=== PATIENT | male | born 1965 | race Caucasian/White ===

== ENCOUNTER 2017-11-04 09:28 | Emergency (ER) | payer BC ==
[2017-11-04 09:34] VITALS: BP 143/71; BMI 40.1
--- NOTE | 2017-11-04 09:53 | DR.URIAD ---
HPI - Time Seen Time seen: 09:54 - PCP Primary Care Physician: YESSY TRAN - Complaint Chief Complaint Doctors Comments: Patient presents with complaint of cold type symptoms for three days. Chief Complaint:: PT C/O CCC, SORETHROAT FOR A FEW DAYS AND THAT HE WANTS TO BE CHECKED OUT AND THAT HE FEELS BAD. - Source History Provided: Patient - Mode of Arrival Mode of Arrival: Ambulatory - Timing Onset of Chief Complaint: 11/01/17 - Quality Shortness of Breath: none PMH - PMH Past Medical History: Yes Past Medical History: Diabetes, Dyslipidemia, Hypertension Past Surgical History: Yes Past Surgical History Comment: LEFT ARM, - Family History History of Family Medical Conditions: Yes Family Medical History: Hypertension Family Medical History Comment: HEART PROBLEMS. >CHOL, - Social History Does patient currently use any type of tobacco product: No Have you used tobacco products in the last 12 months: No Type of Tobacco Use: None Does any household member use tobacco: No Alcohol Use: None Do you use any recreational Drugs:: No Lives With: Family Lives Where: Home - infectious screening In the last 2 months have you had wt loss of >10#?: NO Have you had fever, night sweats or hemotysis?: No Have you traveled outside the country in the last 6 months?: No Isolation: Standard ROS - Review of Systems Eyes: No Symptoms Reported ENTM: No Symptoms Reported Respiratoy: No Symptoms Reported Cardiovascular: No Symptoms Reported Gastrointestinal/Abdominal: No Symptoms Reported Genitourinary: No Symptoms Reported Neurological: No Symptoms Reported Musculoskeletal: No Symptoms Reported Integumentary: No Symptoms Reported Hematologic/Lymphatic: No Symptoms Reported Endocrine: No Symptoms Reported Psychiatric: No Symptoms Reported All Other Systems: Reviewed and Negative PE - Vital Signs Vitals: Temperature 98.2 F Pulse Rate 84 Respiratory Rate 18 Blood Pressure 143/71 O2 Sat by Pulse Oximetry 97 - General Limitations: No Limitations General Appearance: Alert - Head Head Exam: Normal Inspection, Atraumatic - Eyes Eye exam: Normal Appearance, PERRL, EOMI - ENT ENT Exam: Normal Exam External Ear Exam: Normal External Inspection TM/Canal Exam: Bilateral Normal Nose Exam: Normal Nose Exam Nasal Speculum Exam: Bilateral Normal Mouth Exam: Normal Inspection, Drooling Throat Exam: Normal Inspection - Neck Neck Exam: Normal Inspection - Chest Chest Inspection: Normal Inspection - Respiratory Respiratory Exam: Normal Lung Sounds Bilat Respiratory Exam: Bilateral Clear to Auscultation - Cardiovascular Cardiovascular Exam: Regular Rate, Normal Rhythm - Abdominal Exam Abdominal Exam: Normal Inspection, Normal Bowel Sounds Abdominal Tenderness: negative: RUQ, RLQ, LUQ, LLQ, Epigastrium, Suprapubic, Diffuse, Mild, Moderate, Severe, Other - Extremeties Extremities Exam: Normal Inspection, Full ROM - Back Back Exam: Normal Inspection, Full ROM - Neurologic Neurological Exam: Alert, Oriented X3, CN II-XII Intact Course - Reevaluation 1st: Unchanged ROR - Labs Reviewed Laboratory: Influenza Type A (PCR) Negative (NEGATIVE) 11/04/17 09:44 Influenza Type B (PCR) Negative (NEGATIVE) 11/04/17 09:44 S. pyogenes (TEM-PCR) Not detected (NOT DETECT) 11/04/17 10:03 - XRAY XRAY Interpreted by: Radiologist (Chest: Nicreased interstitial markings present involving both lungs which may be chronic. No acute abnormality is seen.) - Diagnosis Discharge Problem: Upper respiratory infection Qualifiers: URI type: unspecified viral URI Qualified Code(s): J06.9 - Acute upper respiratory infection, unspecified - Discharge Plan Condition: Stable - Follow ups/Referrals Follow ups/Referrals: NFD,None [Primary Care Provider] - 3 days - Instructions
--- NOTE | 2017-11-04 10:25 | RAD ---
HISTORY: Sore throat. History of diabetes, asthma and hypertension Study: Two-view chest Comparison: No priors Findings: Trachea is midline. Heart size is upper normal with atherosclerotic calcification and uncoiling of th e aortic arch. Pulmonary vascular congestion is present. Increased interstitial markings are present bilaterally which may be chronic. No consolidation, CHF, pleural fluid or pneumothorax is seen. There is a thoracolumbar scoliosis with multilevel thoracic spondylosis. No acute osseous changes are seen . IMPRESSION: Hypertensive configuration. Pulmonary vascular congestion. Increased interstitial markings present involving both lungs which may be chronic. No acute abnormali ty is seen. Reported By:
== END 2017-11-04 11:10 | disposition home or self-care (01) ==
LOC: ER 09:39
DX: J06.9 Acute upper respiratory infection, unspecified (principal)
CPT/HCPCS: 71046; 87502; 87651; 99282

== ENCOUNTER 2020-11-21 09:11 | Observation (INO) ==
--- NOTE | 2020-11-21 09:48 | DR.FEVERAD ---
HPI Time seen Time Seen by Provider: 11/21/20 09:48 PCP Primary Care Physician: LOLLY DAMON Comment HPI Comment: PATIENT IS 55YR OLD MALE IN ER WITH FEVER, COUGH, CONGESTION AND SOB TIMES 3 DAYS. WORSE TODAY. PATIENT IS WEAK AND HAVING MUSCLE ACHES AND H EADACHE. HAVING GENERALIZED ACHES THAT IS 5/10. Complaints/Symptoms Chief Complaint Doctor Comments: FEVER, COUGH, CONGESTION, SOB TIMES 3 DAY, Chief Complaint:: PT C/O FEVER OF 103, DIDN'T TAKE ANYTHING JUST DRANK SOME COLD BEVERAGES, CHILLS AND HOT SPELLS, LITTLE COUGHING AND SOME CONGESTION, SOB. COVID-19 Coronavirus risk:travel/contact w/high risk person: No Has patient experienced Coronavirus symptoms: No Coronavirus symptoms experienced: Coughing and Shortness of Breath Nurses notes reviewed Nurses Notes Review: Yes Source History Provided: Patient Mode of Arrival Mode of Arrival: Ambulatory Timing Onset of Chief Complaint: 11/18/20 Came on: Suddenly Duration Duration: Constant Duration: Days Severity Fever Severity/Quality: greater than 102 F Context Recent: None Symptoms: Fever, Chills, Cough and SOB History of: Diabetes; denies Recent travel Modifying factors Modifying factors: Nothing Associated signs and symptoms Associated signs and symptoms: Weakness, Myalgia and Headache PMH PMH Past Medical History: Yes Past Medical History: Diabetes, Dyslipidemia and Hypertension Past Surgical History: Yes Surgical History: Other Past Surgical History Comment: SWEAT GLAND REMOVAL Family History History of Family Medical Conditions: Yes Family Medical History: Diabetes Mellitus, Heart Failure and Hypertension Social History Alcohol Use: None Do you use any recreational Drugs:: No Lives With: Spouse Lives Where: Home Infectious screening In the last 2 months have you had wt loss of >10#?: NO Have you had fever, night sweats or hemotysis?: No Have you traveled outside the country in the last 6 months?: No Isolation: Droplet ROS Review of Systems Constitutional: See HPI, Chills, Fever, Weakness and Fatigue Eyes: No Symptoms Reported and See HPI ENTM: See HPI, Nose Discharge and Nose Congestion Respiratoy: See HPI, Moist Cough and Short of Breath; negative Wheezing Cardiovascular: See HPI and Chest Pain (PLEURITIC.); negative Edema and Palpitations Gastrointestinal/Abdominal: No Symptoms Reported and See HPI; negative Abdominal Pain, Diarrhea and Vomiting Genitourinary: No Symptoms Reported and See HPI; negative Dysuria, Frequency and Hematuria Neurological: See HPI, Headache and Weakness; negative Dizziness Musculoskeletal: See HPI and Muscle Pain; negative Back Pain Integumentary: No Symptoms Reported and See HPI; negative Change in Color, Rash and Juandice Hematologic/Lymphatic: No Symptoms Reported and See HPI; negative Easy Bruising and Swollen Glands Endocrine: No Symptoms Reported and See HPI; negative Increased Thirst and Increased Urine Psychiatric: No Symptoms Reported and See HPI All Other Systems: Reviewed and Negative PE Vital Signs Vitals: Temperature 100.1 F Pulse Rate 102 Respiratory Rate 20 Blood Pressure 123/84 O2 Sat by Pulse Oximetry 96 General Limitations: No Limitations General Appearance: Alert and In No Apparent Distress Head Head Exam: Normal Inspection and Atraumatic Eyes Eye exam: Normal Appearance and PERRL; negative Scleral Icterus and Conjunctival Injection ENT ENT Exam: Normal Exam, Normal Oropharynx, Normal External Ear Exam and TM's Normal Bilaterally External Ear Exam: Normal External Inspection; negative Mastoid Tenderness TM/Canal Exam: Bilateral: Normal Nose Exam: Normal Nose Exam; negative Sinus Tenderness Mouth Exam: Normal Inspection; negative Lip Swelling and Tongue Swelling Teeth Exam: Dental Caries; negative Dental Tenderness # and Gingival Swelling Throat Exam: Normal Inspection; negative Tonsillar Erythema, Tonsillomegaly and Tonsillar Exudate Neck Neck Exam: Normal Inspection and Trachea Midline; negative Tenderness and Lymphadenopathy Respiratory Respiratory Exam: Normal Lung Sounds Bilat; negative Accessory Muscle Use, Chest Wall Tenderness and Respiratory Distress Respiratory Exam: Bilateral: Rhonchi and Lower: Rhonchi Cardiovascular Cardiovascular Exam: Regular Rate, Normal Rhythm and Normal Heart Sounds; negative Systolic Murmur and Diastolic Murmur Abdominal Exam Abdominal Exam: Normal Inspection, Normal Bowel Sounds and Soft; negative Tenderness Extremities Extremities Exam: Normal Inspection and Normal Capillary Refill; negative Tenderness, Edema and Calf Tenderness Back Back Exam: Normal Inspection; negative (R) CVA Tenderness and (L) CVA Tenderness Neurologic Neurological Exam: Alert, Oriented X3 and CN II-XII Intact; negative Motor Sens ory Deficit Psychiatric Psychiatric Exam: Normal Affect and Normal Mood Skin Skin Exam: Warm, Dry, Intact and Normal Color MDM Differential Diagnosis Differential Diagnosis: Dehydration, Electrolyte disorder, Influenza, Pulmonary embolus, Pneumonia, UTI and Viral syndrome COURSE Treatment Treatment: SEE ORDERS. NS 1L AT 100CC/HR, MORHIN 4MG IV, ZOFRAN 4MGIV AND LOVENOX 108MG S/C IN ER. Consultation Consultation Comments: DISCUSSED PATIENT WITH DR. RODRIGUEZ, SHE WILL ADMIT PATIENT. Education/Counseling Education/Counseling: Patient Educated On: Diagnosis and Needs for Follow Up ROR Labs Reviewed Laboratory Results Reviewed?: Yes Result Diagrams: 11/26/20 05:05 11/26/20 05:05 Laboratory: 11/21/20 10:18 Blood Blood Culture - Final 11/21/20 10:06 Blood Blood Culture - Final WBC 13.7 X10^3/uL (3.6-10.0) H 11/21/20 10:06 RBC 4.87 X10^6/uL (4.7-6.0) 11/21/20 10:06 Hgb 13.0 g/dL (13.5-18.0) L 11/21/20 10:06 Hct 39.7 % (42.0-54.0) L 11/21/20 10:06 MCV 81.5 fL (80.0-100.0) 11/21/20 10:06 MCH 26.7 pg (27.0-34.0) L 11/21/20 10:06 MCHC 32.7 g/dL (33.0-35.0) L 11/21/20 10:06 RDW 14.9 % (11.6-16.5) 11/21/20 10:06 Plt Count 374 X10^3/uL (150.0-450.0) 11/21/20 10:06 MPV 8.8 fL (7.4-11.0) 11/21/20 10:06 Neut % (Auto) 80.5 % (42.0-75.0) H 11/21/20 10:06 Lymph % (Auto) 7.4 % (21.0-51.0) L 11/21/20 10:06 [place] % (Auto) 10.9 % (0.0-13.0) 11/21/20 10:06 Eos % (Auto) 0.3 % (0.9-2.9) L 11/21/20 10:06 Baso % (Auto) 0.9 % (0.2-1.0) 11/21/20 10:06 Neut # (Auto) 11.0 x10^3/uL (2.2-4.8) H 11/21/20 10:06 Lymph # (Auto) 1.0 X10^3/uL (1.3-2.9) L 11/21/20 10:06 [place] # (Auto) 1.5 x10^3/uL (0.3-0.8) H 11/21/20 10:06 Eos # (Auto) 0.0 x10^3/uL (0.0-0.2) 11/21/20 10:06 Baso # (Auto) 0.1 X10^3/uL (0.0-0.1) 11/21/20 10:06 Absolute Nucleated RBC 0.0 /100WBC 11/21/20 10:06 D-Dimer 1.65 ug/ml (0.0-0.57) H* 11/21/20 10:06 Sample Site Rr 11/21/20 11:20 ABG pH 7.510 (7.35-7.45) H 11/21/20 11:20 ABG pCO2 34.0 mmHg (35.0-45.0) L 11/21/20 11:20 ABG pO2 70.0 mmHg (80.0-100.0) L 11/21/20 11:20 ABG HCO3 27.1 mmol/L (22-26) H 11/21/20 11:20 ABG O2 Saturation 95.0 % (90-100) 11/21/20 11:20 ABG Base Excess 4.2 mmol/L (-2.0-2.0) H 11/21/20 11:20 Omkar Test Pos 11/21/20 11:20 A-a Gradient 37.0 mmHg 11/21/20 11:20 FiO2 21.0 11/21/20 11:20 Blood Gas Comments Cindy well, kh 11/21/20 11:20 Sodium 131 mmol/L (136-145) L 11/21/20 10:06 Corrected Sodium 135 mmol/L (136-145) L 11/21/20 10:06 Potassium 3.7 mmol/L (3.5-5.1) 11/21/20 10:06 Chloride 95 mmol/L (98-107) L 11/21/20 10:06 Carbon Dioxide 27.5 mmol/L (21-32) 11/21/20 10:06 BUN 5 mg/dL (7-18) L 11/21/20 10:06 Creatinine 0.94 mg/dL (0.70-1.30) 11/21/20 10:06 Est GFR (MDRD) Af Amer > 60 (>60) 11/21/20 10:06 Est GFR (MDRD) Non-Af > 60 (>60) 11/21/20 10:06 Glucose 265 mg/dL (65-99) H 11/21/20 10:06 Lactic Acid 1.5 mmol/L (0.4-2.0) 11/21/20 10:06 Calcium 9.4 mg/dL (8.5-10.1) 11/21/20 10:06 Corrected Calcium 10.4 mg/dL (8.5-10.1) H 11/21/20 10:06 Ferritin 389 ng/mL (26-388) H 11/21/20 10:06 Total Bilirubin 0.70 mg/dL (0.2-1.0) 11/21/20 10:06 AST 19 Units/L (15-37) 11/21/20 10:06 ALT 28 Units/L (12-78) 11/21/20 10:06 Alkaline Phosphatase 133 Units/L (46-116) H 11/21/20 10:06 Troponin I < 0.02 ng/mL (0-1.5) 11/21/20 10:06 C-Reactive Protein 221.60 mg/L (0-3.0) H 11/21/20 10:06 B-Natriuretic Peptide 7.5 pg/mL (0-79) 11/21/20 10:06 Total Protein 9.7 g/dL (6.4-8.2) H 11/21/20 10:06 Albumin 2.7 g/dL (3.4-5.0) L 11/21/20 10:06 Globulin 7.0 g/dL (2.5-4.5) H 11/21/20 10:06 Albumin/Globulin Ratio 0.4 Ratio (1.1-2.1) L 11/21/20 10:06 Specimen Type Clean catch urine 11/21/20 12:30 Urine Color Yellow (YELLOW) 11/21/20 12:30 Urine Appearance Clear (CLEAR) 11/21/20 12:30 Urine pH 7.0 (5.0 - 8.0) 11/21/20 12:30 Ur Specific [place] 1.010 (1.000-1.030) 11/21/20 12:30 Urine Protein 2+ (NEGATIVE) 11/21/20 12:30 Urine Glucose (UA) 4+ (NEGATIVE) 11/21/20 12:30 Urine Ketones Negative (NEGATIVE) 11/21/20 12:30 Urine Occult Blood 2+ (NEGATIVE) 11/21/20 12:30 Urine Nitrite Negative (NEGATIVE) 11/21/20 12:30 Urine Bilirubin Negative (NEGATIVE) 11/21/20 12:30 Urine Urobilinogen 3+ (NORMAL) 11/21/20 12:30 Ur Leukocyte Esterase 1+ (NEGATIVE) 11/21/20 12:30 Urine RBC 3-5 /HPF (0-3) A 11/21/20 12:30 Urine WBC 0-2 /HPF (0-5) 11/21/20 12:30 Ur Squamous Epith Cells Few /HPF (NEGATIVE) 11/21/20 12:30 Urine Bacteria Negative /HPF (NEGATIVE) 11/21/20 12:30 Urine Mucus Few /HPF (NEGATIVE) 11/21/20 12:30 Ur Culture Indicated? No/not indicated 11/21/20 12:30 Acetone, Semi-Quant Negative (NEGATIVE) 11/21/20 10:06 SARS-CoV-2 (PCR) Positive (NEGATIVE) A 11/21/20 10:15 Influenza Type A (PCR) Negative (NEGATIVE) 11/21/20 10:15 Influenza Type B (PCR) Negative (NEGATIVE) 11/21/20 10:15 RSV (PCR) Negative (NEGATIVE) 11/21/20 10:15 XRAY XRAY Interpreted by: Radiologist (REPORT NOTED AND DISCUSSED WITH PATIENT.) and Self Opioid Opioid Risk Tool Age (Sathish box if 16-45): No Total: 0 Total Score Risk Category: Low Risk Copyright: Salazar LR predicting aberrant behaviors Diagnosis Discharge Problem: Hyperglycemia, COVID-19 virus infection Pulmonary embolism Qualifiers: Pulmonary embolism type: unspecified Chronicity: acute Acute cor pulmonale presence: without acute cor pulmonale Qualified Code(s): I26.99 - Other pulmonary embolism without acute cor pulmonale Instructions Instructions: Incentive Spirometer Viral Respiratory Infection, Yrlx-Ts-[id number] Hand Washing, Zcpv-hw-[id number] Pulmonary Embolism Upper Respiratory Infection, Adult Type 2 Diabetes Mellitus, Self Care, Adult, Iwrv-ua-[id number] Droplet Precautions, Nnwk-bu-Wobs Contact Precautions, Psez-bf-Jemc Hypertension, Uzkz-au-Gilu Forms: Excuse From Work Precautions for COVID19 Patient Portal Social Distancing
[2020-11-21] MEDS ORDERED: NS 1000 ML 1,000 ML ONE (10:11)
[2020-11-21] MEDS: NS 1000 ML 1,000 ML IV SCH ×2 (10:16→18:03)
[2020-11-21 10:22] LABS: BASOPHILS # (AUTO) 0.1 X10^3/uL (0.0-0.1); BASOPHILS % (AUTO) 0.9 % (0.2-1.0); EOSINOPHILS % (AUTO) 0.3 % (0.9-2.9); HEMATOCRIT 39.7 % (42.0-54.0); LYMPHOCYTES % (AUTO) 7.4 % (21.0-51.0); MEAN CORPUSCULAR HEMOGLOBIN 26.7 pg (27.0-34.0); MEAN CORPUSCULAR HGB CONC 32.7 g/dL (33.0-35.0); MEAN CORPUSCULAR VOLUME 81.5 fL (80.0-100.0); MEAN PLATELET VOLUME 8.8 fL (7.4-11.0); MONOCYTES # (AUTO) 1.5 x10^3/uL (0.3-0.8); MONOCYTES % (AUTO) 10.9 % (0.0-13.0); NEUTROPHILS % (AUTO) 80.5 % (42.0-75.0); PLATELET COUNT 374 X10^3/uL (150.0-450.0); RED BLOOD COUNT 4.87 X10^6/uL (4.7-6.0); RED CELL DISTRIBUTION WIDTH 14.9 % (11.6-16.5); WHITE BLOOD COUNT 13.7 X10^3/uL (3.6-10.0)
[2020-11-21 10:33] LABS: ALANINE AMINOTRANSFERASE 28 Units/L (12-78); ALBUMIN 2.7 g/dL (3.4-5.0); ALKALINE PHOSPHATASE 133 Units/L (46-116); ASPARTATE AMINO TRANSFERASE 19 Units/L (15-37); BLOOD UREA NITROGEN 5 mg/dL (7-18); CALCIUM 9.4 mg/dL (8.5-10.1); CARBON DIOXIDE 27.5 mmol/L (21-32); CHLORIDE 95 mmol/L (98-107); COR CA(FOR HYPOALB) 10.4 mg/dL (8.5-10.1); COR NA(FOR HYPERGLY) 135 mmol/L (136-145); CREATININE 0.94 mg/dL (0.70-1.30); SODIUM 131 mmol/L (136-145); TOTAL PROTEIN 9.7 g/dL (6.4-8.2); eGFR NON BLACK RACES > 60 (>60)
[2020-11-21 10:49] LABS: LACTIC ACID 1.5 mmol/L (0.4-2.0)
--- NOTE | 2020-11-21 11:09 | RAD ---
HISTORYCOUGH, FEVERExam: Single portable view of the chest.Comparison: None available.Findings:The trachea is midline. The cardiac silhouette is unremarkable. There are increased [perihilar] interstitial opacities seen, suggesting [central bronchitis].The lungs [are otherwise clear without focal infiltrate or effusion]. The bony thorax [is unremarkable].IMPRESSION:Chest findings suggesting central bronchitis.No lobar pneumonia or pleural effusion seen.Electronically signed by: TONY NAVARRO III (Nov 21, 2020 11:06:42)
[2020-11-21 11:31] LABS: ABG ALLEN TEST POS; ABG BASE EXCESS 4.2 mmol/L (-2.0-2.0); ABG HCO3 27.1 mmol/L (22-26)
[2020-11-21 12:51] LABS: BILIRUBIN,URINE NEGATIVE (NEGATIVE); BLOOD/HEMOGLOBIN,URINE 2+ (NEGATIVE); GLUCOSE, URINE 4+ (NEGATIVE); KETONES,URINE NEGATIVE (NEGATIVE); LEUKOCYTE ESTERASE ,URINE 1+ (NEGATIVE); NITRITES,URINE NEGATIVE (NEGATIVE); PROTEIN,URINE 2+ (NEGATIVE); UROBILINOGEN,URINE 3+ (NORMAL)
[2020-11-21] MEDS ORDERED: NS 100 ML IV 100 ML IV ONE (12:58)
[2020-11-21 13:02] LABS: APPEARANCE,URINE CLEAR (CLEAR); BACTERIA,URINE NEGATIVE /HPF (NEGATIVE); COLOR,URINE YELLOW (YELLOW); MUCUS,URINE FEW /HPF (NEGATIVE); SQUAMOUS EPITHELIAL CELL,UR FEW /HPF (NEGATIVE)
--- NOTE | 2020-11-21 13:09 | CT ---
HISTORYSOB/ COVID +STUDYCTA CHESTCOMPARISONChest radiograph from same day.TECHNIQUECTA chest protocol with axial images from the thoracic inlet to upper abdomen with IV contrast. Sagittal and coronal reformats and MIP images were created. Automated exposure control was utilized.FINDINGSThe visualized thyroid gland appears benign. Mildly atherosclerotic normal caliber thoracic aorta.Bolus timing is suboptimal. There are small filling defects along the wall at the junction of the left main pulmonary artery and left upper lobe branch image 84 series 7. Thrombus extends into the left upper lobe branches such as the anterior segment on image 71 series 4. Normal caliber pulmonary artery.Severe coronary artery calcifications. The heart is mildly enlarged. No pericardial effusion. No pathologic adenopathy in the thorax. Diffuse hepatic steatosis. No acute osseous abnormality. Trachea and mainstem bronchi appear patent. 2 mm posterior segment left upper lobe pulmonary nodule image 51 series 4. No consolidation or segmental lung collapse. No pleural effusion or pneumothorax.IMPRESSIONThere is likely small volume pulmonary embolus extending from the junction of the left main pulmonary artery into the left upper lobe segments, particularly the left upper lobe anterior segment. Suboptimal bolus timing.Electronically signed by: Lavon Bentley (Nov 21, 2020 13:07:30)
[2020-11-21] MEDS ORDERED: MORPHINE SULFATE INJ 4 MG IVP ONE (14:01)
[2020-11-21] MEDS ORDERED: ZOFRAN INJ 4 MG VIAL IVP ONE (14:01)
[2020-11-21] MEDS ORDERED: MORPHINE SULFATE INJ 4 MG ONE (14:12)
[2020-11-21] MEDS ORDERED: LOVENOX INJ 120 MG SYR SC ONE ×2 (14:14→14:17)
[2020-11-21] MEDS ORDERED: ZOSYN VIAL 3.375 GRAMS 3.375 G in NS 100 ML IV + SPIKE MINIBAG* 100 ML IV SCH (15:03)
[2020-11-21] MEDS ORDERED: NORVASC TAB 2.5 MG PO SCH (16:00)
[2020-11-21] MEDS: DUONEB 0.5 MG/3 MG (3 mL) NEB SCH ×2 (16:20→20:20)
[2020-11-21 16:34] VITALS: BMI 36.1
[2020-11-21] MEDS: VIBRAMYCIN PO SCH ×2 (16:57→23:42)
[2020-11-21] MEDS: VITAMIN C PO SCH (16:57)
[2020-11-21] MEDS: TYLENOL 325 MG TAB PO PRN (16:57)
[2020-11-21] MEDS: ZOSYN VIAL 3.375 GRAMS 3.375 G in NS 100 ML IV + SPIKE MINIBAG* 100 ML IV SCH ×2 (16:57→23:30)
[2020-11-21] MEDS ORDERED: DUONEB 0.5 MG/3 MG (3 mL) NEB SCH (17:00)
[2020-11-21] MEDS ORDERED: STERILE WATER IRRIGATION IR ONE (17:22)
[2020-11-21] MEDS: HumuLIN R SC PRN ×2 (17:30→20:54)
[2020-11-21] MEDS: WOUND CARE XX SCH (18:01)
[2020-11-21] MEDS: PULMICORT NEB TX 0.5 MG NEB SCH (20:20)
[2020-11-21] MEDS ORDERED: LOVENOX INJ 100 MG SYR SC SCH (21:00)
[2020-11-21] MEDS ORDERED: PULMICORT NEB TX 0.5 MG NEB SCH (21:00)
[2020-11-21] MEDS ORDERED: VASOTEC TAB 5 MG PO SCH (21:00)
[2020-11-22] MEDS: NS 1000 ML 1,000 ML IV SCH (02:51)
[2020-11-22] MEDS: WOUND CARE XX SCH ×2 (05:00→17:27)
[2020-11-22] MEDS: ZOSYN VIAL 3.375 GRAMS 3.375 G in NS 100 ML IV + SPIKE MINIBAG* 100 ML IV SCH ×3 (05:30→21:28)
[2020-11-22 06:04] LABS: ALANINE AMINOTRANSFERASE 21 Units/L (12-78); ALBUMIN 2.1 g/dL (3.4-5.0); ALKALINE PHOSPHATASE 95 Units/L (46-116); ASPARTATE AMINO TRANSFERASE 13 Units/L (15-37); BLOOD UREA NITROGEN 6 mg/dL (7-18); CALCIUM 8.9 mg/dL (8.5-10.1); CARBON DIOXIDE 25.9 mmol/L (21-32); CHLORIDE 102 mmol/L (98-107); COR CA(FOR HYPOALB) 10.4 mg/dL (8.5-10.1); COR NA(FOR HYPERGLY) 140 mmol/L (136-145); CREATININE 0.67 mg/dL (0.70-1.30); SODIUM 137 mmol/L (136-145); TOTAL PROTEIN 8.1 g/dL (6.4-8.2); eGFR NON BLACK RACES > 60 (>60)
[2020-11-22 06:06] LABS: BASOPHILS # (AUTO) 0.1 X10^3/uL (0.0-0.1); BASOPHILS % (AUTO) 0.6 % (0.2-1.0); EOSINOPHILS # (AUTO) 0.1 x10^3/uL (0.0-0.2); EOSINOPHILS % (AUTO) 1.1 % (0.9-2.9); HEMATOCRIT 34.5 % (42.0-54.0); HEMOGLOBIN 11.4 g/dL (13.5-18.0); LYMPHOCYTES # (AUTO) 1.5 X10^3/uL (1.3-2.9); LYMPHOCYTES % (AUTO) 15.1 % (21.0-51.0); MEAN CORPUSCULAR HEMOGLOBIN 27.1 pg (27.0-34.0); MEAN CORPUSCULAR HGB CONC 33.2 g/dL (33.0-35.0); MEAN CORPUSCULAR VOLUME 81.5 fL (80.0-100.0); MEAN PLATELET VOLUME 9.1 fL (7.4-11.0); MONOCYTES # (AUTO) 1.1 x10^3/uL (0.3-0.8); MONOCYTES % (AUTO) 11.2 % (0.0-13.0); NEUTROPHILS # (AUTO) 7.1 x10^3/uL (2.2-4.8); PLATELET COUNT 257 X10^3/uL (150.0-450.0); RED BLOOD COUNT 4.23 X10^6/uL (4.7-6.0); RED CELL DISTRIBUTION WIDTH 14.7 % (11.6-16.5); WHITE BLOOD COUNT 9.9 X10^3/uL (3.6-10.0)
[2020-11-22] MEDS: HumuLIN R SC PRN ×4 (06:27→20:48)
[2020-11-22] MEDS ORDERED: PATIENT'S HOME MEDICATION (Insulin Degludec [Tresiba Flextouch U-100] 100 unit/mL (3 mL) I SUBCUT SCH (09:00)
[2020-11-22] MEDS: DUONEB 0.5 MG/3 MG (3 mL) NEB SCH ×4 (09:25→20:00)
[2020-11-22] MEDS: PULMICORT NEB TX 0.5 MG NEB SCH ×2 (09:25→20:00)
[2020-11-22] MEDS: K-DUR TAB 20 MEQ PO SCH ×2 (09:34→20:47)
[2020-11-22] MEDS: LOVENOX INJ 100 MG SYR SC SCH ×3 (09:35→20:45)
[2020-11-22] MEDS: VITAMIN D3 125 mcg (5,000 UNITS) PO SCH (09:37)
[2020-11-22] MEDS: VITAMIN C PO SCH (09:38)
[2020-11-22] MEDS: NORVASC TAB 10 MG PO SCH (09:38)
[2020-11-22] MEDS: VASOTEC TAB 20 MG PO SCH ×2 (09:38→20:46)
[2020-11-22] MEDS: CRESTOR TAB 10 MG PO SCH (09:39)
[2020-11-22] MEDS: VIBRAMYCIN PO SCH ×2 (09:39→21:27)
--- NOTE | 2020-11-22 10:19 | DR.H&P ---
H&P History & Physical for Day of: H&P Date: 11/22/20 Chief Complaint Chief Complaint: SOB, chills and weakness Allergies Allergies Allergy/AdvReac Type Severity Reaction Status Date / Time naproxen [From Aleve] Allergy Verified 11/21/20 09:25 sulfamethoxazole Allergy Verified 11/21/20 09:25 [From Bactrim] trimethoprim [From Bactrim] Allergy Verified 11/21/20 09:25 History of Present Illness History of Present Illness: Mr. Altman is a 55y/o male with a PMH of Type 2 DM, HTN, HLD and obesity who presented with worsening dyspnea, chills and genera lized weakness. Patient states he has been feeling this way for a while but did not seek medical attention. He works in the [employer] and has been exposed to COVID. He reports having fever/chills and fatigue. He started having shortness of breath for the past couple days. Denies GI Sx. Denies sick contact at home. He also has skin pustules/small abscesses in his underarm area along with abdomen and groin. He states this has been going on for 2 years. He has seen General Surgery and had them excised before but he continue to have more spots with pus/blood drainage. Labs: WBC 9.9 Hgb 11.4 Plt 257 K: 3.2 BUN/Cr: 6/0.67 Glucose 193 CRP 188 Trop (- ) D-dimer elevated COVID-19 +, Flu and RSV (-) CXR: central bronchitis CTA: showing PE Patient was started on FD lovenox. Cultures were collected. He was not on oxygen on admission but overnight he was placed on 2L. During my exam, he is on RA with sats > 95% Plan: Continue FD lovenox, add zosyn and doxycycline. Continue nebs. Resume home medications. Add SSI. Replace K. Wound Cx pending. Continue wound care and dressing changes. Consult Dr. Elizondo for wound care. Monitor am labs and imaging. Past Medical History Past Medical History: Diabetes, Dyslipidemia and Hypertension Past Surgical History Surgical History: Tonsillectomy Family History Family Medical History: Diabetes Mellitus, Heart Failure and Hypertension Social History Does patient currently use any type of tobacco product: No Have you used tobacco products in the last 12 months: No Does any household member use tobacco: No Alcohol Use: None Drug Use: None Prescription drug monitoring program results: PDMP reviewed and no concerns identified Medications Home Medications: naproxen [From Aleve] Allergy (Verified 11/21/20 09:25) sulfamethoxazole [From Bactrim] Allergy (Verified 11/21/20 09:25) trimethoprim [From Bactrim] Allergy (Verified 11/21/20 09:25) CONTINUE taking the following medications amlodipine [Norvasc] 10 mg PO DAILY 11/21/20 [History] enalapril maleate [Vasotec] 20 mg PO BID 11/21/20 [History] insulin degludec [Tresiba FlexTouch U-100] 20 unit SUBCUT DAILY 11/21/20 [History] rosuvastatin 20 mg PO DAILY 11/21/20 [History] Labs Result Diagrams: 11/22/20 05:05 11/22/20 05:05 Labs: 11/21/20 17:47 Arm - Left Gram Stain - Final 11/21/20 17:47 Arm - Left Wound Culture - Preliminary 11/21/20 17:47 Abdomen Gram Stain - Final 11/21/20 17:47 Abdomen Wound Culture - Preliminary 11/21/20 17:47 Groin Gram Stain - Final 11/21/20 17:47 Groin Wound Culture - Preliminary 11/21/20 17:47 Arm - Right Gram Stain - Final Laboratory WBC 9.9 X10^3/uL (3.6-10.0) 11/22/20 05:05 RBC 4.23 X10^6/uL (4.7-6.0) L 11/22/20 05:05 Hgb 11.4 g/dL (13.5-18.0) L 11/22/20 05:05 Hct 34.5 % (42.0-54.0) L 11/22/20 05:05 MCV 81.5 fL (80.0-100.0) 11/22/20 05:05 MCH 27.1 pg (27.0-34.0) 11/22/20 05:05 MCHC 33.2 g/dL (33.0-35.0) 11/22/20 05:05 RDW 14.7 % (11.6-16.5) 11/22/20 05:05 Plt Count 257 X10^3/uL (150.0-450.0) 11/22/20 05:05 MPV 9.1 fL (7.4-11.0) 11/22/20 05:05 Neut % (Auto) 72.0 % (42.0-75.0) 11/22/20 05:05 Lymph % (Auto) 15.1 % (21.0-51.0) L 11/22/20 05:05 [place] % (Auto) 11.2 % (0.0-13.0) 11/22/20 05:05 Eos % (Auto) 1.1 % (0.9-2.9) 11/22/20 05:05 Baso % (Auto) 0.6 % (0.2-1.0) 11/22/20 05:05 Neut # (Auto) 7.1 x10^3/uL (2.2-4.8) H 11/22/20 05:05 Lymph # (Auto) 1.5 X10^3/uL (1.3-2.9) 11/22/20 05:05 [place] # (Auto) 1.1 x10^3/uL (0.3-0.8) H 11/22/20 05:05 Eos # (Auto) 0.1 x10^3/uL (0.0-0.2) 11/22/20 05:05 Baso # (Auto) 0.1 X10^3/uL (0.0-0.1) 11/22/20 05:05 Absolute Nucleated RBC 0.1 /100WBC 11/22/20 05:05 D-Dimer 1.65 ug/ml (0.0-0.57) H* 11/21/20 10:06 Sample Site Rr 11/21/20 11:20 ABG pH 7.510 (7.35-7.45) H 11/21/20 11:20 ABG pCO2 34.0 mmHg (35.0-45.0) L 11/21/20 11:20 ABG pO2 70.0 mmHg (80.0-100.0) L 11/21/20 11:20 ABG HCO3 27.1 mmol/L (22-26) H 11/21/20 11:20 ABG O2 Saturation 95.0 % (90-100) 11/21/20 11:20 ABG Base Excess 4.2 mmol/L (-2.0-2.0) H 11/21/20 11:20 Omkar Test Pos 11/21/20 11:20 A-a Gradient 37.0 mmHg 11/21/20 11:20 FiO2 21.0 11/21/20 11:20 Blood Gas Comments Cindy well, kh 11/21/20 11:20 Sodium 137 mmol/L (136-145) 11/22/20 05:05 Corrected Sodium 140 mmol/L (136-145) 11/22/20 05:05 Potassium 3.2 mmol/L (3.5-5.1) L 11/22/20 05:05 Chloride 102 mmol/L (98-107) 11/22/20 05:05 Carbon Dioxide 25.9 mmol/L (21-32) 11/22/20 05:05 BUN 6 mg/dL (7-18) L 11/22/20 05:05 Creatinine 0.67 mg/dL (0.70-1.30) L 11/22/20 05:05 Est GFR (MDRD) Af Amer > 60 (>60) 11/22/20 05:05 Est GFR (MDRD) Non-Af > 60 (>60) 11/22/20 05:05 Glucose 218 mg/dL (65-99) H 11/22/20 05:05 POC Glucose (mg/dL) 193 mg/dL (65-99) H 11/22/20 05:53 Lactic Acid 1.5 mmol/L (0.4-2.0) 11/21/20 10:06 Calcium 8.9 mg/dL (8.5-10.1) 11/22/20 05:05 Corrected Calcium 10.4 mg/dL (8.5-10.1) H 11/22/20 05:05 Ferritin 389 ng/mL (26-388) H 11/21/20 10:06 Total Bilirubin 0.40 mg/dL (0.2-1.0) 11/22/20 05:05 AST 13 Units/L (15-37) L 11/22/20 05:05 ALT 21 Units/L (12-78) 11/22/20 05:05 Alkaline Phosphatase 95 Units/L (46-116) 11/22/20 05:05 Troponin I < 0.02 ng/mL (0-1.5) 11/21/20 10:06 C-Reactive Protein 188.70 mg/L (0-3.0) H 11/22/20 05:05 B-Natriuretic Peptide 7.5 pg/mL (0-79) 11/21/20 10:06 Total Protein 8.1 g/dL (6.4-8.2) 11/22/20 05:05 Albumin 2.1 g/dL (3.4-5.0) L 11/22/20 05:05 Globulin 6.0 g/dL (2.5-4.5) H 11/22/20 05:05 Albumin/Globulin Ratio 0.4 Ratio (1.1-2.1) L 11/22/20 05:05 Specimen Type Clean catch urine 11/21/20 12:30 Urine Color Yellow (YELLOW) 11/21/20 12:30 Urine Appearance Clear (CLEAR) 11/21/20 12:30 Urine pH 7.0 (5.0 - 8.0) 11/21/20 12:30 Ur Specific [place] 1.010 (1.000-1.030) 11/21/20 12:30 Urine Protein 2+ (NEGATIVE) 11/21/20 12:30 Urine Glucose (UA) 4+ (NEGATIVE) 11/21/20 12:30 Urine Ketones Negative (NEGATIVE) 11/21/20 12:30 Urine Occult Blood 2+ (NEGATIVE) 11/21/20 12:30 Urine Nitrite Negative (NEGATIVE) 11/21/20 12:30 Urine Bilirubin Negative (NEGATIVE) 11/21/20 12:30 Urine Urobilinogen 3+ (NORMAL) 11/21/20 12:30 Ur Leukocyte Esterase 1+ (NEGATIVE) 11/21/20 12:30 Urine RBC 3-5 /HPF (0-3) A 11/21/20 12:30 Urine WBC 0-2 /HPF (0-5) 11/21/20 12:30 Ur Squamous Epith Cells Few /HPF (NEGATIVE) 11/21/20 12:30 Urine Bacteria Negative /HPF (NEGATIVE) 11/21/20 12:30 Urine Mucus Few /HPF (NEGATIVE) 11/21/20 12:30 Ur Culture Indicated? No/not indicated 11/21/20 12:30 Acetone, Semi-Quant Negative (NEGATIVE) 11/21/20 10:06 SARS-CoV-2 (PCR) Positive (NEGATIVE) A 11/21/20 10:15 Influenza Type A (PCR) Negative (NEGATIVE) 11/21/20 10:15 Influenza Type B (PCR) Negative (NEGATIVE) 11/21/20 10:15 RSV (PCR) Negative (NEGATIVE) 11/21/20 10:15 Review of Systems Constitutional: Fever, Chills, Weakness and Malaise Eyes: No Symptoms Reported ENT: No Symptoms Reported Respiratory: Shortness of Breath Cardiovascular: No Symptoms Reported Gastrointestinal: No Symptoms Reported Genitourinary: No Symptoms Reported Musculoskeletal: No Symptoms Reported Skin: Lesions, Wound and Other (multiple skin lesions/pustules in the underarm area, abdomen and groin area, purulent/bloody drainage. Multiple sizes. ) Neurological: No Symptoms Reported Physical Exam Vital Signs: Temperature 99.6 F Pulse Rate 80 Respiratory Rate 24 Blood Pressure 157/77 O2 Sat by Pulse Oximetry 95 Oriented: Normal Eyes: Normal Ear: Normal Nose: Normal Throat: Normal Respiratory: Diminished Throughout Cardiovascular: Normal : Other (pustule in the groin area: bleeding ) Auscultation: Bowel Sounds: Normal Palpation: Normal Tenderness: Normal Skin: Pustular, Tender and Wound Musculoskeletal: Normal Psychiatric: Normal Mood Description: Calm Affect: Normal Speech Pattern: Clear and Appropriate Assessment/Plan (1) COVID-19 virus infection: Status: Acute (2) Pulmonary embolism: Qualifiers: Pulmonary embolism type: multiple subsegmental (without acute cor pulmonale) Qualified Code(s): I26.94 - Multiple subsegmental pulmonary emboli without acute cor pulmonale Status: Acute (3) Hidradenitis suppurativa: Status: Acute (4) Hypokalemia: Status: Acute (5) HTN (hypertension): Qualifiers: Hypertension type: essential hypertension Qualified Code(s): I10 - Essential (primary) hypertension Status: Acute (6) Diabetes: Qualifiers: Diabetes mellitus complication status: without complication Diabetes mellitus buttermaker insulin use: with fdc use Diabetes mellitus type: type 2 Qualified Code(s): E11.9 - Type 2 diabetes mellitus without complications; Z79.4 - long term care pharmacist (current) use of insulin Status: Acute (7) Bronchitis: Status: Acute Review H&P Reviewed: Yes Patient was examined?: Yes
[2020-11-22 13:02] LABS: T4 (THYROXINE) 6.6 ug/dL (4.7-13.3); TSH (3RD GENERATION) 0.414 uIU/mL (0.358-3.74)
[2020-11-22] MEDS: PERCOCET TAB 5/325 MG PO PRN ×2 (15:16→20:47)
[2020-11-22] MEDS: COLACE CAP 100 MG PO SCH ×2 (15:26→21:27)
[2020-11-22] MEDS: MILK OF MAGNESIA PO SCH ×2 (15:26→21:27)
[2020-11-22] MEDS: SNACK - Diabetic Appropriate PO SCH (19:51)
[2020-11-23 05:09] LABS: ABG ALLEN TEST POS; ABG BASE EXCESS 4.8 mmol/L (-2.0-2.0); ABG HCO3 29.9 mmol/L (22-26)
[2020-11-23] MEDS: PERCOCET TAB 5/325 MG PO PRN (05:30)
[2020-11-23] MEDS: ZOSYN VIAL 3.375 GRAMS 3.375 G in NS 100 ML IV + SPIKE MINIBAG* 100 ML IV SCH ×3 (05:30→21:50)
[2020-11-23] MEDS: WOUND CARE XX SCH ×2 (05:30→18:04)
--- NOTE | 2020-11-23 06:04 | RAD ---
HISTORYcovid SOB PESTUDYAP [id number] is no change. Upper normal heart size with essentially clear lungs and pleural spaces. There is no evidence for pneumonia, atelectasis, pneumothorax or pleural fluid.IMPRESSIONNo change or acute abnormality demonstrated.Electronically signed by: TANIA YEN (Nov 23, 2020 06:02:33)
[2020-11-23 06:20] LABS: BLOOD UREA NITROGEN 8 mg/dL (7-18); CALCIUM 9.5 mg/dL (8.5-10.1); CARBON DIOXIDE 26.3 mmol/L (21-32); CHLORIDE 105 mmol/L (98-107); COR NA(FOR HYPERGLY) 142 mmol/L (136-145); CREATININE 0.69 mg/dL (0.70-1.30); SODIUM 141 mmol/L (136-145); eGFR NON BLACK RACES > 60 (>60)
[2020-11-23 06:21] LABS: BASOPHILS # (AUTO) 0.1 X10^3/uL (0.0-0.1); BASOPHILS % (AUTO) 0.9 % (0.2-1.0); EOSINOPHILS # (AUTO) 0.2 x10^3/uL (0.0-0.2); EOSINOPHILS % (AUTO) 2.5 % (0.9-2.9); HEMOGLOBIN 11.7 g/dL (13.5-18.0); LYMPHOCYTES # (AUTO) 2.4 X10^3/uL (1.3-2.9); LYMPHOCYTES % (AUTO) 29.6 % (21.0-51.0); MEAN CORPUSCULAR HEMOGLOBIN 27.1 pg (27.0-34.0); MEAN CORPUSCULAR HGB CONC 33.5 g/dL (33.0-35.0); MEAN CORPUSCULAR VOLUME 81.1 fL (80.0-100.0); MEAN PLATELET VOLUME 8.6 fL (7.4-11.0); MONOCYTES # (AUTO) 0.7 x10^3/uL (0.3-0.8); MONOCYTES % (AUTO) 8.5 % (0.0-13.0); NEUTROPHILS # (AUTO) 4.8 x10^3/uL (2.2-4.8); NEUTROPHILS % (AUTO) 58.5 % (42.0-75.0); PLATELET COUNT 276 X10^3/uL (150.0-450.0); RED BLOOD COUNT 4.32 X10^6/uL (4.7-6.0); RED CELL DISTRIBUTION WIDTH 14.8 % (11.6-16.5); WHITE BLOOD COUNT 8.3 X10^3/uL (3.6-10.0)
[2020-11-23] MEDS ORDERED: REMDESIVIR 200 MG in NS 250 ML IV 250 ML IV NR (08:19)
[2020-11-23] MEDS ORDERED: INSULIN DEGLUDEC 15 UNIT SUBCUT SCH (09:00)
[2020-11-23] MEDS: MILK OF MAGNESIA PO SCH ×2 (09:12→20:58)
[2020-11-23] MEDS: COLACE CAP 100 MG PO SCH ×2 (09:13→20:56)
[2020-11-23] MEDS: DUONEB 0.5 MG/3 MG (3 mL) NEB SCH ×4 (09:19→20:46)
[2020-11-23] MEDS: PULMICORT NEB TX 0.5 MG NEB SCH ×2 (09:19→20:47)
[2020-11-23] MEDS ORDERED: IVERMECTIN PO SCH (11:00)
[2020-11-23] MEDS: NORVASC TAB 10 MG PO SCH (11:04)
[2020-11-23] MEDS: K-DUR TAB 20 MEQ PO SCH ×2 (11:04→20:56)
[2020-11-23] MEDS: CRESTOR TAB 10 MG PO SCH (11:04)
[2020-11-23] MEDS: VASOTEC TAB 20 MG PO SCH ×2 (11:05→20:58)
[2020-11-23] MEDS: VIBRAMYCIN PO SCH ×2 (11:06→20:59)
[2020-11-23] MEDS: VITAMIN C PO SCH (11:06)
[2020-11-23] MEDS: VITAMIN D3 125 mcg (5,000 UNITS) PO SCH (11:07)
[2020-11-23] MEDS: LANTUS SC SCH (11:07)
[2020-11-23] MEDS: LOVENOX INJ 100 MG SYR SC SCH ×2 (11:08→20:57)
[2020-11-23] MEDS: SOLU-Medrol 125 MG VIAL IVP SCH ×3 (12:00→20:58)
[2020-11-23] MEDS: HumuLIN R SC PRN ×2 (17:11→20:59)
[2020-11-23] MEDS: SNACK - Diabetic Appropriate PO SCH (19:42)
[2020-11-24] MEDS: SOLU-Medrol 125 MG VIAL IVP SCH ×4 (02:09→20:22)
[2020-11-24 04:41] LABS: BASOPHILS # (AUTO) 0.1 X10^3/uL (0.0-0.1); BASOPHILS % (AUTO) 1.4 % (0.2-1.0); HEMATOCRIT 37.2 % (42.0-54.0); HEMOGLOBIN 12.1 g/dL (13.5-18.0); LYMPHOCYTES # (AUTO) 0.9 X10^3/uL (1.3-2.9); LYMPHOCYTES % (AUTO) 11.2 % (21.0-51.0); MEAN CORPUSCULAR HEMOGLOBIN 26.6 pg (27.0-34.0); MEAN CORPUSCULAR HGB CONC 32.5 g/dL (33.0-35.0); MEAN CORPUSCULAR VOLUME 81.7 fL (80.0-100.0); MEAN PLATELET VOLUME 8.6 fL (7.4-11.0); MONOCYTES # (AUTO) 0.1 x10^3/uL (0.3-0.8); MONOCYTES % (AUTO) 0.9 % (0.0-13.0); NEUTROPHILS # (AUTO) 6.7 x10^3/uL (2.2-4.8); NEUTROPHILS % (AUTO) 86.5 % (42.0-75.0); PLATELET COUNT 353 X10^3/uL (150.0-450.0); RED BLOOD COUNT 4.55 X10^6/uL (4.7-6.0); RED CELL DISTRIBUTION WIDTH 14.9 % (11.6-16.5); WHITE BLOOD COUNT 7.8 X10^3/uL (3.6-10.0)
[2020-11-24 04:50] LABS: BLOOD UREA NITROGEN 7 mg/dL (7-18); CALCIUM 9.9 mg/dL (8.5-10.1); CARBON DIOXIDE 25.1 mmol/L (21-32); CHLORIDE 101 mmol/L (98-107); COR NA(FOR HYPERGLY) 143 mmol/L (136-145); CREATININE 0.68 mg/dL (0.70-1.30); SODIUM 138 mmol/L (136-145); eGFR NON BLACK RACES > 60 (>60)
[2020-11-24 05:48] LABS: ABG ALLEN TEST POS; ABG BASE EXCESS 3.5 mmol/L (-2.0-2.0); ABG HCO3 27.8 mmol/L (22-26)
[2020-11-24] MEDS: HumuLIN R SC PRN ×3 (05:54→20:56)
[2020-11-24] MEDS: ZOSYN VIAL 3.375 GRAMS 3.375 G in NS 100 ML IV + SPIKE MINIBAG* 100 ML IV SCH ×2 (05:54→13:52)
[2020-11-24] MEDS: WOUND CARE XX SCH ×2 (05:54→17:00)
[2020-11-24] MEDS: COLACE CAP 100 MG PO SCH ×2 (08:48→20:22)
[2020-11-24] MEDS: MILK OF MAGNESIA PO SCH ×2 (08:49→20:23)
[2020-11-24] MEDS ORDERED: REMDESIVIR 100 MG in NS 250 ML IV 250 ML IV SCH (09:00)
[2020-11-24] MEDS: CRESTOR TAB 10 MG PO SCH (09:02)
[2020-11-24] MEDS: K-DUR TAB 20 MEQ PO SCH ×2 (09:02→20:24)
[2020-11-24] MEDS: VIBRAMYCIN PO SCH (09:03)
[2020-11-24] MEDS: VASOTEC TAB 20 MG PO SCH ×2 (09:03→20:22)
[2020-11-24] MEDS: NORVASC TAB 10 MG PO SCH (09:03)
[2020-11-24] MEDS: VITAMIN D3 125 mcg (5,000 UNITS) PO SCH (09:04)
[2020-11-24] MEDS: VITAMIN C PO SCH (09:04)
[2020-11-24] MEDS: LOVENOX INJ 100 MG SYR SC SCH ×2 (09:04→20:23)
[2020-11-24] MEDS: LANTUS SC SCH (09:05)
[2020-11-24] MEDS: DUONEB 0.5 MG/3 MG (3 mL) NEB SCH ×4 (09:09→21:23)
[2020-11-24] MEDS: PULMICORT NEB TX 0.5 MG NEB SCH ×2 (09:09→21:23)
[2020-11-24] MEDS ORDERED: DIPRIVAN VIAL ONE (11:15)
[2020-11-24] MEDS ORDERED: XYLOCAINE 1 % (PLAIN) ONE (11:15)
--- NOTE | 2020-11-24 11:59 | DR.PROGNOT ---
Hospital Progress Notes - Progress Note for Day of: Progress Note Date: 11/24/20 - Chief Complaint Chief Complaint: 326still having purulent drainage from the axillary and groin abscesses . pain is less thouigh . Pt is on yumiko doses of steroids . .BS is high 326 - Past Medical Family Social History Past Med/Fam/Surg Hx: No changes since H&P Allergies: Allergies naproxen [From Aleve] Allergy (Verified 11/21/20 09:25) sulfamethoxazole [From Bactrim] Allergy (Verified 11/21/20 09:25) trimethoprim [From Bactrim] Allergy (Verified 11/21/20 09:25) - Review Of Systems ROS: No change since H&P - Vital Signs Vital Signs: Temperature 97 F Pulse Rate 86 Respiratory Rate 16 Blood Pressure 119/56 O2 Sat by Pulse Oximetry 95 - Physical Exam Oriented: Normal Eyes: Normal Ear: Normal Nose: Normal Throat: Normal Cardiovascular: Normal : Other (pustule in the groin area: bleeding) GI:Auscultation: Normal GI:Palpation: Normal GI: Tenderness: Normal Skin: Pustular, Tender, Wound (multiple abscesses in the groins and Axilla) Musculoskeletal: Normal Psychiatric: Normal Mood Description: Calm Affect: Normal Speech Pattern: Clear, Appropriate - Laboratory and Diagnostics Result Diagrams: 11/24/20 04:05 11/24/20 04:05 Labs: 11/21/20 17:47 Arm - Right Gram Stain - Final 11/21/20 17:47 Arm - Right Wound Culture - Preliminary Proteus Mirabilis 11/21/20 17:47 Abdomen Gram Stain - Final 11/21/20 17:47 Abdomen Wound Culture - Preliminary 11/21/20 17:47 Arm - Left Gram Stain - Final 11/21/20 17:47 Arm - Left Wound Culture - Preliminary Proteus Mirabilis 11/21/20 17:47 Groin Gram Stain - Final 11/21/20 17:47 Groin Wound Culture - Preliminary Proteus Mirabilis 11/22/20 15:15 Axilla - Left Gram Stain - Final 11/22/20 15:15 Axilla - Left Wound Culture - Preliminary 11/21/20 10:18 Blood Blood Culture - Preliminary 11/21/20 10:06 Blood Blood Culture - Preliminary Laboratory WBC 7.8 X10^3/uL (3.6-10.0) 11/24/20 04:05 RBC 4.55 X10^6/uL (4.7-6.0) L 11/24/20 04:05 Hgb 12.1 g/dL (13.5-18.0) L 11/24/20 04:05 Hct 37.2 % (42.0-54.0) L 11/24/20 04:05 MCV 81.7 fL (80.0-100.0) 11/24/20 04:05 MCH 26.6 pg (27.0-34.0) L 11/24/20 04:05 MCHC 32.5 g/dL (33.0-35.0) L 11/24/20 04:05 RDW 14.9 % (11.6-16.5) 11/24/20 04:05 Plt Count 353 X10^3/uL (150.0-450.0) 11/24/20 04:05 MPV 8.6 fL (7.4-11.0) 11/24/20 04:05 Neut % (Auto) 86.5 % (42.0-75.0) H 11/24/20 04:05 Lymph % (Auto) 11.2 % (21.0-51.0) L 11/24/20 04:05 [place] % (Auto) 0.9 % (0.0-13.0) 11/24/20 04:05 Eos % (Auto) 0.0 % (0.9-2.9) L 11/24/20 04:05 Baso % (Auto) 1.4 % (0.2-1.0) H 11/24/20 04:05 Neut # (Auto) 6.7 x10^3/uL (2.2-4.8) H 11/24/20 04:05 Lymph # (Auto) 0.9 X10^3/uL (1.3-2.9) L 11/24/20 04:05 [place] # (Auto) 0.1 x10^3/uL (0.3-0.8) L 11/24/20 04:05 Eos # (Auto) 0.0 x10^3/uL (0.0-0.2) 11/24/20 04:05 Baso # (Auto) 0.1 X10^3/uL (0.0-0.1) 11/24/20 04:05 Absolute Nucleated RBC 0.0 /100WBC 11/24/20 04:05 D-Dimer 0.88 ug/ml (0.0-0.57) H* 11/24/20 04:05 Sample Site Lr 11/24/20 05:00 ABG pH 7.450 (7.35-7.45) 11/24/20 05:00 ABG pCO2 40.0 mmHg (35.0-45.0) 11/24/20 05:00 ABG pO2 63.0 mmHg (80.0-100.0) L 11/24/20 05:00 ABG HCO3 27.8 mmol/L (22-26) H 11/24/20 05:00 ABG O2 Saturation 93.0 % (90-100) 11/24/20 05:00 ABG Base Excess 3.5 mmol/L (-2.0-2.0) H 11/24/20 05:00 Omkar Test Pos 11/24/20 05:00 A-a Gradient 37.0 mmHg 11/24/20 05:00 FiO2 21.0 11/24/20 05:00 Blood Gas Comments Cindy well sw 11/24/20 05:00 Sodium 138 mmol/L (136-145) 11/24/20 04:05 Corrected Sodium 143 mmol/L (136-145) 11/24/20 04:05 Potassium 3.9 mmol/L (3.5-5.1) 11/24/20 04:05 Chloride 101 mmol/L (98-107) 11/24/20 04:05 Carbon Dioxide 25.1 mmol/L (21-32) 11/24/20 04:05 BUN 7 mg/dL (7-18) 11/24/20 04:05 Creatinine 0.68 mg/dL (0.70-1.30) L 11/24/20 04:05 Est GFR (MDRD) Af Amer > 60 (>60) 11/24/20 04:05 Est GFR (MDRD) Non-Af > 60 (>60) 11/24/20 04:05 Glucose 326 mg/dL (65-99) H 11/24/20 04:05 POC Glucose (mg/dL) 330 mg/dL (65-99) H 11/23/20 19:28 Hemoglobin A1c 9.5 % 11/22/20 05:05 Lactic Acid 1.5 mmol/L (0.4-2.0) 11/21/20 10:06 Calcium 9.9 mg/dL (8.5-10.1) 11/24/20 04:05 Corrected Calcium 10.4 mg/dL (8.5-10.1) H 11/22/20 05:05 Ferritin 389 ng/mL (26-388) H 11/21/20 10:06 Total Bilirubin 0.40 mg/dL (0.2-1.0) 11/22/20 05:05 AST 13 Units/L (15-37) L 11/22/20 05:05 ALT 21 Units/L (12-78) 11/22/20 05:05 Alkaline Phosphatase 95 Units/L (46-116) 11/22/20 05:05 Troponin I < 0.02 ng/mL (0-1.5) 11/21/20 10:06 C-Reactive Protein 104.60 mg/L (0-3.0) H 11/24/20 04:05 B-Natriuretic Peptide 7.5 pg/mL (0-79) 11/21/20 10:06 Total Protein 8.1 g/dL (6.4-8.2) 11/22/20 05:05 Albumin 2.1 g/dL (3.4-5.0) L 11/22/20 05:05 Globulin 6.0 g/dL (2.5-4.5) H 11/22/20 05:05 Albumin/Globulin Ratio 0.4 Ratio (1.1-2.1) L 11/22/20 05:05 Thyroxine (T4) 6.6 ug/dL (4.7-13.3) 11/22/20 05:05 TSH 3rd Generation 0.414 uIU/mL (0.358-3.74) 11/22/20 05:05 Specimen Type Clean catch urine 11/21/20 12:30 Urine Color Yellow (YELLOW) 11/21/20 12:30 Urine Appearance Clear (CLEAR) 11/21/20 12:30 Urine pH 7.0 (5.0 - 8.0) 11/21/20 12:30 Ur Specific [place] 1.010 (1.000-1.030) 11/21/20 12:30 Urine Protein 2+ (NEGATIVE) 11/21/20 12:30 Urine Glucose (UA) 4+ (NEGATIVE) 11/21/20 12:30 Urine Ketones Negative (NEGATIVE) 11/21/20 12:30 Urine Occult Blood 2+ (NEGATIVE) 11/21/20 12:30 Urine Nitrite Negative (NEGATIVE) 11/21/20 12:30 Urine Bilirubin Negative (NEGATIVE) 11/21/20 12:30 Urine Urobilinogen 3+ (NORMAL) 11/21/20 12:30 Ur Leukocyte Esterase 1+ (NEGATIVE) 11/21/20 12:30 Urine RBC 3-5 /HPF (0-3) A 11/21/20 12:30 Urine WBC 0-2 /HPF (0-5) 11/21/20 12:30 Ur Squamous Epith Cells Few /HPF (NEGATIVE) 11/21/20 12:30 Urine Bacteria Negative /HPF (NEGATIVE) 11/21/20 12:30 Urine Mucus Few /HPF (NEGATIVE) 11/21/20 12:30 Ur Culture Indicated? No/not indicated 11/21/20 12:30 Acetone, Semi-Quant Negative (NEGATIVE) 11/21/20 10:06 SARS-CoV-2 (PCR) Positive (NEGATIVE) A 11/21/20 10:15 Influenza Type A (PCR) Negative (NEGATIVE) 11/21/20 10:15 Influenza Type B (PCR) Negative (NEGATIVE) 11/21/20 10:15 RSV (PCR) Negative (NEGATIVE) 11/21/20 10:15 - Assessment and Plan 1: hydradenitis with multiple abscesses both axilla and groins . to drain these abscesses in AM with IV sedation .
--- NOTE | 2020-11-24 18:23 | PCM.PROG ---
Progress Note - Progress Note for Day of Date of Exam: 11/23/20 - Subjective Subjective: IS A 55 YEAR OLD PATIENT OF . HE IS BEING TREATED FOR COVID-19, ACUTE BROCHITIS, PULMONARY EMBOLISM, HIDRADENITIS SUPPURATIVA, HYPOKALEMIA, HTN, AND DIABETES. HE IS BEING FOLLOWED BY DUE TO MULTIPLE ABSCESSES TO THE AXILLARY, ABDOMEN, AND GROIN AREAS. HE IS HAVI NG DRAINAGE FROM MULTIPLE SITES. TODAY, HE IS ALERT AND ORIENTED, LYING IN BED ON MORNING ROUNDS. HE REPORTS SHORTNESS OF BREATH, GENERALIZED WEAKNESS, AND A NON-PRODUCTIVE COUGH THIS MORNING. ON EXAMINATION, HEART IS REGULAR IN RATE AND RHYTHM. BILATERAL LUNGS ARE NOTED WITH DIMINISHED LUNG SOUNDS THROUGHOUT. ABDOMEN IS ROUND, SOFT, AND NON-TENDER WITH NORMAL BOWEL SOUNDS NOTED IN ALL QUADRANTS. THERE ARE MULTIPLE DRAINING ABSCESSES ON BOTH AXILLA, SUPRAPUBIC AREA, AND GROIN. MULTIPLE SINUS TRACTS AND OTHER ABSCESSES IN ADDITION TO NUMEROUS SCARS FROM PREVIOUS INFECTIONS ON SURGICAL INCISION. HIS VITALS THIS MORNING ARE: 98.7-66-15-91%-125/61. LABS WERE OBTAINED. ABNORMAL LAB VALUES INCLUDE THE FOLLOWING: RBC 4.32, HGB 11.7, HCT 35, D-DIMER 1.44, CREATININE 0.69, GLUCOSE 154, CRP 148. BLOOD CULTURES WELL MULTIPLE WOUND CULTURES ARE PENDING. A CHEST XRAY WAS OBTAINED AND REVEALED: No change or acute abnormality demonstrated. HE IS CURRENTLY RECEIVING DUONEBS QID, PULMICORT NEBS BID, VIBRAMYCIN 100MG PO BID, LOVENOX 100MG SC Q12H, SOLU-MEDROL 125MG IV Q6H, ZOSYN 3.375G IV TID, PERCOCET 5/325MG PO Q4H PRN, VITAMIN C 500MG PO DAILY, COLACE 100MG PO BID, VASOTEC 20MG PO BID, LANTUS 15 UNITS SC DAILY, HUMULIN R SLIDING SCALE, OTBS ACHS, MILK OF MAGNESIA 30ML PO BID, AND ROSUVASTATIN 20MG PO DAILY. TODAY, WE WILL ADD REMDESIVIR 100MG IV DAILY, SOLU-MEDROL 125MG IV Q6H, AND IVERMECTIN. OTHERWISE, WE WILL CONTINUE WITH CURRENT PLAN OF CARE TODAY. WE WILL FOLLOW UP WITH AM LABS AND CONTINUE TO MONITOR. TIME SPENT ON CLINICAL ASSESSMENT, REVIEWING LABS AND IMAGING, DECISION MAKING, AND DOCUMENTATION WAS GREATER THAN 45 MINUTES. - Past Medical Family Social History Past Med/Fam/Surg Hx: No changes since H&P Allergies: Allergies naproxen [From Aleve] Allergy (Verified 11/21/20 09:25) sulfamethoxazole [From Bactrim] Allergy (Verified 11/21/20 09:25) trimethoprim [From Bactrim] Allergy (Verified 11/21/20 09:25) - Review of Systems ROS: No change since H&P - Vital Signs and I&O's Vital Signs: Temperature 97 F Pulse Rate 80 Respiratory Rate 18 Blood Pressure 108/54 O2 Sat by Pulse Oximetry 94 Intake and Output: Intake & Output 11/22/20 11/23/20 11/24/20 11/25/20 11:59 11:59 11:59 11:59 Intake Total 3522 / 3522 5638 / 5638 4030 / 4030 Output Total 400 / 400 Balance 3522 / 3522 5638 / 5638 3630 / 3630 - Physical Exam Oriented: Normal Eyes: Normal Ear: Normal Nose: Normal Throat: Normal Respiratory: Generalized, Diminished Cardiovascular: Normal : Normal, Other (pustule in the groin area: bleeding) Auscultation: Bowel Sounds: Normal Palpation: Normal Tenderness: Normal Skin: Pustular, Tender, Wound (multiple abscesses in the groins and Axilla) Musculoskeletal: Normal Psychiatric: Normal Mood Description: Calm Affect: Normal Speech Pattern: Clear, Appropriate - Laboratory and Diagnostics Result Diagrams: 11/24/20 04:05 11/24/20 04:05 Labs: 11/21/20 17:47 Arm - Right Gram Stain - Final 11/21/20 17:47 Arm - Right Wound Culture - Preliminary Proteus Mirabilis 11/21/20 17:47 Abdomen Gram Stain - Final 11/21/20 17:47 Abdomen Wound Culture - Preliminary 11/21/20 17:47 Arm - Left Gram Stain - Final 11/21/20 17:47 Arm - Left Wound Culture - Preliminary Proteus Mirabilis 11/21/20 17:47 Groin Gram Stain - Final 11/21/20 17:47 Groin Wound Culture - Preliminary Proteus Mirabilis 11/22/20 15:15 Axilla - Left Gram Stain - Final 11/22/20 15:15 Axilla - Left Wound Culture - Preliminary 11/21/20 10:18 Blood Blood Culture - Preliminary 11/21/20 10:06 Blood Blood Culture - Preliminary Laboratory WBC 7.8 X10^3/uL (3.6-10.0) 11/24/20 04:05 RBC 4.55 X10^6/uL (4.7-6.0) L 11/24/20 04:05 Hgb 12.1 g/dL (13.5-18.0) L 11/24/20 04:05 Hct 37.2 % (42.0-54.0) L 11/24/20 04:05 MCV 81.7 fL (80.0-100.0) 11/24/20 04:05 MCH 26.6 pg (27.0-34.0) L 11/24/20 04:05 MCHC 32.5 g/dL (33.0-35.0) L 11/24/20 04:05 RDW 14.9 % (11.6-16.5) 11/24/20 04:05 Plt Count 353 X10^3/uL (150.0-450.0) 11/24/20 04:05 MPV 8.6 fL (7.4-11.0) 11/24/20 04:05 Neut % (Auto) 86.5 % (42.0-75.0) H 11/24/20 04:05 Lymph % (Auto) 11.2 % (21.0-51.0) L 11/24/20 04:05 [place] % (Auto) 0.9 % (0.0-13.0) 11/24/20 04:05 Eos % (Auto) 0.0 % (0.9-2.9) L 11/24/20 04:05 Baso % (Auto) 1.4 % (0.2-1.0) H 11/24/20 04:05 Neut # (Auto) 6.7 x10^3/uL (2.2-4.8) H 11/24/20 04:05 Lymph # (Auto) 0.9 X10^3/uL (1.3-2.9) L 11/24/20 04:05 [place] # (Auto) 0.1 x10^3/uL (0.3-0.8) L 11/24/20 04:05 Eos # (Auto) 0.0 x10^3/uL (0.0-0.2) 11/24/20 04:05 Baso # (Auto) 0.1 X10^3/uL (0.0-0.1) 11/24/20 04:05 Absolute Nucleated RBC 0.0 /100WBC 11/24/20 04:05 D-Dimer 0.88 ug/ml (0.0-0.57) H* 11/24/20 04:05 Sample Site Lr 11/24/20 05:00 ABG pH 7.450 (7.35-7.45) 11/24/20 05:00 ABG pCO2 40.0 mmHg (35.0-45.0) 11/24/20 05:00 ABG pO2 63.0 mmHg (80.0-100.0) L 11/24/20 05:00 ABG HCO3 27.8 mmol/L (22-26) H 11/24/20 05:00 ABG O2 Saturation 93.0 % (90-100) 11/24/20 05:00 ABG Base Excess 3.5 mmol/L (-2.0-2.0) H 11/24/20 05:00 Omkar Test Pos 11/24/20 05:00 A-a Gradient 37.0 mmHg 11/24/20 05:00 FiO2 21.0 11/24/20 05:00 Blood Gas Comments Cindy well sw 11/24/20 05:00 Sodium 138 mmol/L (136-145) 11/24/20 04:05 Corrected Sodium 143 mmol/L (136-145) 11/24/20 04:05 Potassium 3.9 mmol/L (3.5-5.1) 11/24/20 04:05 Chloride 101 mmol/L (98-107) 11/24/20 04:05 Carbon Dioxide 25.1 mmol/L (21-32) 11/24/20 04:05 BUN 7 mg/dL (7-18) 11/24/20 04:05 Creatinine 0.68 mg/dL (0.70-1.30) L 11/24/20 04:05 Est GFR (MDRD) Af Amer > 60 (>60) 11/24/20 04:05 Est GFR (MDRD) Non-Af > 60 (>60) 11/24/20 04:05 Glucose 326 mg/dL (65-99) H 11/24/20 04:05 POC Glucose (mg/dL) 350 mg/dL (65-99) H 11/24/20 17:09 Hemoglobin A1c 9.5 % 11/22/20 05:05 Lactic Acid 1.5 mmol/L (0.4-2.0) 11/21/20 10:06 Calcium 9.9 mg/dL (8.5-10.1) 11/24/20 04:05 Corrected Calcium 10.4 mg/dL (8.5-10.1) H 11/22/20 05:05 Ferritin 389 ng/mL (26-388) H 11/21/20 10:06 Total Bilirubin 0.40 mg/dL (0.2-1.0) 11/22/20 05:05 AST 13 Units/L (15-37) L 11/22/20 05:05 ALT 21 Units/L (12-78) 11/22/20 05:05 Alkaline Phosphatase 95 Units/L (46-116) 11/22/20 05:05 Troponin I < 0.02 ng/mL (0-1.5) 11/21/20 10:06 C-Reactive Protein 104.60 mg/L (0-3.0) H 11/24/20 04:05 B-Natriuretic Peptide 7.5 pg/mL (0-79) 11/21/20 10:06 Total Protein 8.1 g/dL (6.4-8.2) 11/22/20 05:05 Albumin 2.1 g/dL (3.4-5.0) L 11/22/20 05:05 Globulin 6.0 g/dL (2.5-4.5) H 11/22/20 05:05 Albumin/Globulin Ratio 0.4 Ratio (1.1-2.1) L 11/22/20 05:05 Thyroxine (T4) 6.6 ug/dL (4.7-13.3) 11/22/20 05:05 TSH 3rd Generation 0.414 uIU/mL (0.358-3.74) 11/22/20 05:05 Specimen Type Clean catch urine 11/21/20 12:30 Urine Color Yellow (YELLOW) 11/21/20 12:30 Urine Appearance Clear (CLEAR) 11/21/20 12:30 Urine pH 7.0 (5.0 - 8.0) 11/21/20 12:30 Ur Specific [place] 1.010 (1.000-1.030) 11/21/20 12:30 Urine Protein 2+ (NEGATIVE) 11/21/20 12:30 Urine Glucose (UA) 4+ (NEGATIVE) 11/21/20 12:30 Urine Ketones Negative (NEGATIVE) 11/21/20 12:30 Urine Occult Blood 2+ (NEGATIVE) 11/21/20 12:30 Urine Nitrite Negative (NEGATIVE) 11/21/20 12:30 Urine Bilirubin Negative (NEGATIVE) 11/21/20 12:30 Urine Urobilinogen 3+ (NORMAL) 11/21/20 12:30 Ur Leukocyte Esterase 1+ (NEGATIVE) 11/21/20 12:30 Urine RBC 3-5 /HPF (0-3) A 11/21/20 12:30 Urine WBC 0-2 /HPF (0-5) 11/21/20 12:30 Ur Squamous Epith Cells Few /HPF (NEGATIVE) 11/21/20 12:30 Urine Bacteria Negative /HPF (NEGATIVE) 11/21/20 12:30 Urine Mucus Few /HPF (NEGATIVE) 11/21/20 12:30 Ur Culture Indicated? No/not indicated 11/21/20 12:30 Acetone, Semi-Quant Negative (NEGATIVE) 11/21/20 10:06 SARS-CoV-2 (PCR) Positive (NEGATIVE) A 11/21/20 10:15 Influenza Type A (PCR) Negative (NEGATIVE) 11/21/20 10:15 Influenza Type B (PCR) Negative (NEGATIVE) 11/21/20 10:15 RSV (PCR) Negative (NEGATIVE) 11/21/20 10:15 - Plan (1) COVID-19 virus infection Status: Acute (2) Pulmonary embolism Status: Acute Qualifiers: Pulmonary embolism type: multiple subsegmental (without acute cor pulmonale) Qualified Code(s): I26.94 - Multiple subsegmental pulmonary emboli without acute cor pulmonale (3) Bronchitis Status: Acute (4) Hidradenitis suppurativa Status: Acute (5) HTN (hypertension) Status: Acute Qualifiers: Hypertension type: essential hypertension Qualified Code(s): I10 - Essential (primary) hypertension (6) Hypokalemia Status: Acute (7) Diabetes Status: Acute Qualifiers: Diabetes mellitus type: type 2 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
--- NOTE | 2020-11-24 18:34 | PCM.PROG ---
Progress Note - Progress Note for Day of Date of Exam: 11/24/20 - Subjective Subjective: IS A 55 YEAR OLD PATIENT OF . HE IS BEING TREATED FOR COVID-19, ACUTE BROCHITIS, PULMONARY EMBOLISM, HIDRADENITIS SUPPURATIVA, HYPOKALEMIA, HTN, AND DIABETES. HE IS BEING FOLLOWED BY DUE TO MULTIPLE ABSCESSES TO THE AXILLARY, ABDOMEN, AND GROIN AREAS. HE IS HAVI NG DRAINAGE FROM MULTIPLE SITES. TODAY, HE IS ALERT AND ORIENTED, LYING IN BED ON MORNING ROUNDS. HE REPORTS SHORTNESS OF BREATH, GENERALIZED WEAKNESS, AND A NON-PRODUCTIVE COUGH. ON EXAMINATION, HEART IS REGULAR IN RATE AND RHYTHM. BILATERAL LUNGS ARE NOTED WITH DIMINISHED LUNG SOUNDS THROUGHOUT. ABDOMEN IS ROUND, SOFT, AND NON-TENDER WITH NORMAL BOWEL SOUNDS NOTED IN ALL QUADRANTS. THERE ARE MULTIPLE DRAINING ABSCESSES ON BOTH AXILLA, SUPRAPUBIC AREA, AND GROIN. MULTIPLE SINUS TRACTS AND OTHER ABSCESSES IN ADDITION TO NUMEROUS SCARS FROM PREVIOUS INFECTIONS ON SURGICAL INCISION. HIS VITALS THIS MORNING ARE: 97.0-77-16-95%-119/56. LABS WERE OBTAINED. ABNORMAL LAB VALUES INCLUDE THE FOLLOWING: RBC 4.55, HGB 12.1, HCT 37.2, D-DIMER 0.88, CREATININE 0.68, GLUCOSE 326, CRP 104.60. BLOOD CULTURES ARE PENDING. WOUND CULTURES REPORT GROWTH OF PROTEUS MIRABILIS. ABG WAS OBTAINED AND REVEALED: PH 7.450, PC02 40, P02 63, HC03 27.8, 02 SAT 93, BASE EXCESS 3.5, A-A GRADIENT 37, FI02 21.0. HE IS C URRENTLY RECEIVING DUONEBS QID, PULMICORT NEBS BID, VIBRAMYCIN 100MG PO BID, LOVENOX 100MG SC Q12H, SOLU-MEDROL 125MG IV Q6H, ZOSYN 3.375G IV TID, REMDESIVIR 100MG IV DAILY, SOLU-MEDROL 125MG IV Q6H, AND IVERMECTIN, PERCOCET 5/325MG PO Q4H PRN, VITAMIN C 500MG PO DAILY, COLACE 100MG PO BID, VASOTEC 20MG PO BID, LANTUS 15 UNITS SC DAILY, HUMULIN R SLIDING SCALE, OTBS ACHS, MILK OF MAGNESIA 30ML PO BID, AND ROSUVASTATIN 20MG PO DAILY. TODAY, WE WILL DISCONTINUE THE VIBRAMYCIN AND ZOSYN. WE WILL START CIPRO 400MG IV Q12H. PLANS TO DRAIN ABSCESSES UNDER IV SEDATION TOMORROW MORNING. OTHERWISE, WE WILL FOLLOW UP WITH AM LABS AND CONTINUE TO MONITOR. TIME SPENT ON CLINICAL ASSESSMENT, R EVIEWING LABS AND IMAGING, DECISION MAKING, AND DOCUMENTATION WAS GREATER THAN 45 MINUTES. - Past Medical Family Social History Past Med/Fam/Surg Hx: No changes since H&P Allergies: Allergies naproxen [From Aleve] Allergy (Verified 11/21/20 09:25) sulfamethoxazole [From Bactrim] Allergy (Verified 11/21/20 09:25) trimethoprim [From Bactrim] Allergy (Verified 11/21/20 09:25) - Review of Systems ROS: No change since H&P - Vital Signs and I&O's Vital Signs: Temperature 97 F Pulse Rate 76 Respiratory Rate 18 Blood Pressure 108/54 O2 Sat by Pulse Oximetry 95 Intake and Output: Intake & Output 11/22/20 11/23/20 11/24/20 11/25/20 11:59 11:59 11:59 11:59 Intake Total 3522 / 3522 5638 / 5638 4030 / 4030 Output Total 400 / 400 Balance 3522 / 3522 5638 / 5638 3630 / 3630 - Physical Exam Oriented: Normal Eyes: Normal Ear: Normal Nose: Normal Throat: Normal Respiratory: Generalized, Diminished Cardiovascular: Normal : Normal, Other (pustule in the groin area: bleeding) Auscultation: Bowel Sounds: Normal Palpation: Normal Tenderness: Normal Skin: Pustular, Tender, Wound (multiple abscesses in the groins and Axilla) Musculoskeletal: Normal Psychiatric: Normal Mood Description: Calm Affect: Normal Speech Pattern: Clear, Appropriate - Laboratory and Diagnostics Result Diagrams: 11/24/20 04:05 11/24/20 04:05 Labs: 11/21/20 17:47 Arm - Right Gram Stain - Final 11/21/20 17:47 Arm - Right Wound Culture - Preliminary Proteus Mirabilis 11/21/20 17:47 Abdomen Gram Stain - Final 11/21/20 17:47 Abdomen Wound Culture - Preliminary 11/21/20 17:47 Arm - Left Gram Stain - Final 11/21/20 17:47 Arm - Left Wound Culture - Preliminary Proteus Mirabilis 11/21/20 17:47 Groin Gram Stain - Final 11/21/20 17:47 Groin Wound Culture - Preliminary Proteus Mirabilis 11/22/20 15:15 Axilla - Left Gram Stain - Final 11/22/20 15:15 Axilla - Left Wound Culture - Preliminary 11/21/20 10:18 Blood Blood Culture - Preliminary 11/21/20 10:06 Blood Blood Culture - Preliminary Laboratory WBC 7.8 X10^3/uL (3.6-10.0) 11/24/20 04:05 RBC 4.55 X10^6/uL (4.7-6.0) L 11/24/20 04:05 Hgb 12.1 g/dL (13.5-18.0) L 11/24/20 04:05 Hct 37.2 % (42.0-54.0) L 11/24/20 04:05 MCV 81.7 fL (80.0-100.0) 11/24/20 04:05 MCH 26.6 pg (27.0-34.0) L 11/24/20 04:05 MCHC 32.5 g/dL (33.0-35.0) L 11/24/20 04:05 RDW 14.9 % (11.6-16.5) 11/24/20 04:05 Plt Count 353 X10^3/uL (150.0-450.0) 11/24/20 04:05 MPV 8.6 fL (7.4-11.0) 11/24/20 04:05 Neut % (Auto) 86.5 % (42.0-75.0) H 11/24/20 04:05 Lymph % (Auto) 11.2 % (21.0-51.0) L 11/24/20 04:05 [place] % (Auto) 0.9 % (0.0-13.0) 11/24/20 04:05 Eos % (Auto) 0.0 % (0.9-2.9) L 11/24/20 04:05 Baso % (Auto) 1.4 % (0.2-1.0) H 11/24/20 04:05 Neut # (Auto) 6.7 x10^3/uL (2.2-4.8) H 11/24/20 04:05 Lymph # (Auto) 0.9 X10^3/uL (1.3-2.9) L 11/24/20 04:05 [place] # (Auto) 0.1 x10^3/uL (0.3-0.8) L 11/24/20 04:05 Eos # (Auto) 0.0 x10^3/uL (0.0-0.2) 11/24/20 04:05 Baso # (Auto) 0.1 X10^3/uL (0.0-0.1) 11/24/20 04:05 Absolute Nucleated RBC 0.0 /100WBC 11/24/20 04:05 D-Dimer 0.88 ug/ml (0.0-0.57) H* 11/24/20 04:05 Sample Site Lr 11/24/20 05:00 ABG pH 7.450 (7.35-7.45) 11/24/20 05:00 ABG pCO2 40.0 mmHg (35.0-45.0) 11/24/20 05:00 ABG pO2 63.0 mmHg (80.0-100.0) L 11/24/20 05:00 ABG HCO3 27.8 mmol/L (22-26) H 11/24/20 05:00 ABG O2 Saturation 93.0 % (90-100) 11/24/20 05:00 ABG Base Excess 3.5 mmol/L (-2.0-2.0) H 11/24/20 05:00 Omkar Test Pos 11/24/20 05:00 A-a Gradient 37.0 mmHg 11/24/20 05:00 FiO2 21.0 11/24/20 05:00 Blood Gas Comments Cindy well sw 11/24/20 05:00 Sodium 138 mmol/L (136-145) 11/24/20 04:05 Corrected Sodium 143 mmol/L (136-145) 11/24/20 04:05 Potassium 3.9 mmol/L (3.5-5.1) 11/24/20 04:05 Chloride 101 mmol/L (98-107) 11/24/20 04:05 Carbon Dioxide 25.1 mmol/L (21-32) 11/24/20 04:05 BUN 7 mg/dL (7-18) 11/24/20 04:05 Creatinine 0.68 mg/dL (0.70-1.30) L 11/24/20 04:05 Est GFR (MDRD) Af Amer > 60 (>60) 11/24/20 04:05 Est GFR (MDRD) Non-Af > 60 (>60) 11/24/20 04:05 Glucose 326 mg/dL (65-99) H 11/24/20 04:05 POC Glucose (mg/dL) 350 mg/dL (65-99) H 11/24/20 17:09 Hemoglobin A1c 9.5 % 11/22/20 05:05 Lactic Acid 1.5 mmol/L (0.4-2.0) 11/21/20 10:06 Calcium 9.9 mg/dL (8.5-10.1) 11/24/20 04:05 Corrected Calcium 10.4 mg/dL (8.5-10.1) H 11/22/20 05:05 Ferritin 389 ng/mL (26-388) H 11/21/20 10:06 Total Bilirubin 0.40 mg/dL (0.2-1.0) 11/22/20 05:05 AST 13 Units/L (15-37) L 11/22/20 05:05 ALT 21 Units/L (12-78) 11/22/20 05:05 Alkaline Phosphatase 95 Units/L (46-116) 11/22/20 05:05 Troponin I < 0.02 ng/mL (0-1.5) 11/21/20 10:06 C-Reactive Protein 104.60 mg/L (0-3.0) H 11/24/20 04:05 B-Natriuretic Peptide 7.5 pg/mL (0-79) 11/21/20 10:06 Total Protein 8.1 g/dL (6.4-8.2) 11/22/20 05:05 Albumin 2.1 g/dL (3.4-5.0) L 11/22/20 05:05 Globulin 6.0 g/dL (2.5-4.5) H 11/22/20 05:05 Albumin/Globulin Ratio 0.4 Ratio (1.1-2.1) L 11/22/20 05:05 Thyroxine (T4) 6.6 ug/dL (4.7-13.3) 11/22/20 05:05 TSH 3rd Generation 0.414 uIU/mL (0.358-3.74) 11/22/20 05:05 Specimen Type Clean catch urine 11/21/20 12:30 Urine Color Yellow (YELLOW) 11/21/20 12:30 Urine Appearance Clear (CLEAR) 11/21/20 12:30 Urine pH 7.0 (5.0 - 8.0) 11/21/20 12:30 Ur Specific [place] 1.010 (1.000-1.030) 11/21/20 12:30 Urine Protein 2+ (NEGATIVE) 11/21/20 12:30 Urine Glucose (UA) 4+ (NEGATIVE) 11/21/20 12:30 Urine Ketones Negative (NEGATIVE) 11/21/20 12:30 Urine Occult Blood 2+ (NEGATIVE) 11/21/20 12:30 Urine Nitrite Negative (NEGATIVE) 11/21/20 12:30 Urine Bilirubin Negative (NEGATIVE) 11/21/20 12:30 Urine Urobilinogen 3+ (NORMAL) 11/21/20 12:30 Ur Leukocyte Esterase 1+ (NEGATIVE) 11/21/20 12:30 Urine RBC 3-5 /HPF (0-3) A 11/21/20 12:30 Urine WBC 0-2 /HPF (0-5) 11/21/20 12:30 Ur Squamous Epith Cells Few /HPF (NEGATIVE) 11/21/20 12:30 Urine Bacteria Negative /HPF (NEGATIVE) 11/21/20 12:30 Urine Mucus Few /HPF (NEGATIVE) 11/21/20 12:30 Ur Culture Indicated? No/not indicated 11/21/20 12:30 Acetone, Semi-Quant Negative (NEGATIVE) 11/21/20 10:06 SARS-CoV-2 (PCR) Positive (NEGATIVE) A 11/21/20 10:15 Influenza Type A (PCR) Negative (NEGATIVE) 11/21/20 10:15 Influenza Type B (PCR) Negative (NEGATIVE) 11/21/20 10:15 RSV (PCR) Negative (NEGATIVE) 11/21/20 10:15 - Plan (1) COVID-19 virus infection Status: Acute (2) Pulmonary embolism Status: Acute Qualifiers: Pulmonary embolism type: multiple subsegmental (without acute cor pulmonale) Qualified Code(s): I26.94 - Multiple subsegmental pulmonary emboli without acute cor pulmonale (3) Bronchitis Status: Acute (4) Hidradenitis suppurativa Status: Acute (5) HTN (hypertension) Status: Acute Qualifiers: Hypertension type: essential hypertension Qualified Code(s): I10 - Essential (primary) hypertension (6) Hypokalemia Status: Acute (7) Diabetes Status: Acute Qualifiers: Diabetes mellitus type: type 2 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
[2020-11-24] MEDS ORDERED: CIPRO IV 400 MG PREMIX* 400 MG/200 ML IV.SOLN. IV ONE (19:43)
[2020-11-24] MEDS: SNACK - Diabetic Appropriate PO SCH (20:22)
[2020-11-24] MEDS: CIPRO IV 400 MG PREMIX* 400 MG/200 ML IV.SOLN. IV SCH (20:22)
[2020-11-24] MEDS ORDERED: NS 1000 ML 1,000 ML ONE (20:45)
[2020-11-24] MEDS: TYLENOL 325 MG TAB PO PRN (21:45)
[2020-11-25] MEDS: SOLU-Medrol 125 MG VIAL IVP SCH ×3 (03:33→20:21)
[2020-11-25 05:08] LABS: BASOPHILS # (AUTO) 0.1 X10^3/uL (0.0-0.1); BASOPHILS % (AUTO) 0.7 % (0.2-1.0); HEMATOCRIT 34.8 % (42.0-54.0); HEMOGLOBIN 11.2 g/dL (13.5-18.0); LYMPHOCYTES # (AUTO) 1.1 X10^3/uL (1.3-2.9); LYMPHOCYTES % (AUTO) 8.4 % (21.0-51.0); MEAN CORPUSCULAR HEMOGLOBIN 26.4 pg (27.0-34.0); MEAN CORPUSCULAR HGB CONC 32.3 g/dL (33.0-35.0); MEAN CORPUSCULAR VOLUME 81.6 fL (80.0-100.0); MEAN PLATELET VOLUME 8.7 fL (7.4-11.0); MONOCYTES # (AUTO) 0.2 x10^3/uL (0.3-0.8); MONOCYTES % (AUTO) 1.7 % (0.0-13.0); NEUTROPHILS # (AUTO) 11.9 x10^3/uL (2.2-4.8); NEUTROPHILS % (AUTO) 89.2 % (42.0-75.0); PLATELET COUNT 326 X10^3/uL (150.0-450.0); RED BLOOD COUNT 4.26 X10^6/uL (4.7-6.0); RED CELL DISTRIBUTION WIDTH 14.7 % (11.6-16.5); WHITE BLOOD COUNT 13.3 X10^3/uL (3.6-10.0)
[2020-11-25 05:16] LABS: BLOOD UREA NITROGEN 11 mg/dL (7-18); CALCIUM 9.7 mg/dL (8.5-10.1); CARBON DIOXIDE 26.9 mmol/L (21-32); CHLORIDE 103 mmol/L (98-107); COR NA(FOR HYPERGLY) 144 mmol/L (136-145); CREATININE 0.75 mg/dL (0.70-1.30); SODIUM 139 mmol/L (136-145); eGFR NON BLACK RACES > 60 (>60)
[2020-11-25] MEDS: WOUND CARE XX SCH ×2 (05:31→18:00)
[2020-11-25] MEDS: HumuLIN R SC PRN ×3 (05:58→20:36)
--- NOTE | 2020-11-25 07:30 | RAD ---
HISTORYShortness of breathSTUDYChest AP [id number]/21/2021FINDINGSThe heart is within normal limits in size. The pacheco are normal. The lung dela cruz are clear. No pleural effusions are identified. Bony thorax is unremarkable.IMPRESSIONNo significant abnormality identifiedElectronically signed by: CLAUDINE ARIAS (Nov 25, 2020 07:28:55)
[2020-11-25] MEDS: DUONEB 0.5 MG/3 MG (3 mL) NEB SCH ×4 (08:41→20:50)
[2020-11-25] MEDS: PULMICORT NEB TX 0.5 MG NEB SCH ×2 (08:41→20:50)
[2020-11-25] MEDS: CIPRO IV 400 MG PREMIX* 400 MG/200 ML IV.SOLN. IV SCH ×2 (09:43→20:21)
[2020-11-25] MEDS: VITAMIN D3 125 mcg (5,000 UNITS) PO SCH (09:44)
[2020-11-25] MEDS: VASOTEC TAB 20 MG PO SCH ×2 (09:44→20:22)
[2020-11-25] MEDS: VITAMIN C PO SCH (09:44)
[2020-11-25] MEDS: MILK OF MAGNESIA PO SCH ×2 (09:45→20:20)
[2020-11-25] MEDS: CRESTOR TAB 10 MG PO SCH (09:45)
[2020-11-25] MEDS: NORVASC TAB 10 MG PO SCH (09:45)
[2020-11-25] MEDS: K-DUR TAB 20 MEQ PO SCH (09:45)
[2020-11-25] MEDS: COLACE CAP 100 MG PO SCH ×2 (09:45→20:20)
[2020-11-25] MEDS: LANTUS SC SCH (09:46)
[2020-11-25] MEDS ORDERED: XYLOCAINE 1 % (PLAIN) ONE (12:15)
--- NOTE | 2020-11-25 13:08 | OR.IMMED ---
Immediate Post-Op Note - Immediate Post-Op Note Pre-Op Diagnosis: hydradenitis abscesses . Post-Op Diagnosis: multiple skin abscesses 2nd dydradenitis both axilla and groins . Procedure: I&D skin abscesses axilla and groins . Surgeon/Firewall Administrator: Dr Elizondo Specimens Removed: C&S Drains: NONE (packed with IODOFORM ), Chest Tube Final Diagnosis: as above
--- NOTE | 2020-11-25 14:39 | PCM.PROG ---
Progress Note Progress Note for Day of Date of Exam: 11/25/20 Subjective Subjective: Patient seen at bedside, no overnight events. He states he feels much better. He is currently on room air with sats above 95%. He denies fever or chills. Denies GI Sx. He is scheduled to have I&D of the multiple abscesses in the underarm, abdomen and groin region. He states it's not draining as much. Labs: WBC 13.3 Hgb 11.2 Glucose 315 K 4.3 CXR: no acute cardiopulmonary process, no infiltrates Wound Cx: Proteus Plan: will hold morning Lovenox dose due to I&D. Will switch to Eliquis later today. Continue IV antibiotics. Will stop Remdesivir and Ivermectin. Taper solumedrol. Duonebs prn. Increase lantus to 20 units daily, continue SSI. Follow Dr Elizondo's recommendations regarding wound care and dressing changes. Monitor AM labs. Past Medical Family Social History Past Med/Fam/Surg Hx: No changes since H&P Allergies: Allergies naproxen [From Aleve] Allergy (Verified 11/21/20 09:25) sulfamethoxazole [From Bactrim] Allergy (Verified 11/21/20 09:25) trimethoprim [From Bactrim] Allergy (Verified 11/21/20 09:25) Review of Systems ROS: No change since H&P Vital Signs and I&O's Vital Signs: Temperature 97.5 F Pulse Rate 65 Respiratory Rate 18 Blood Pressure 131/61 O2 Sat by Pulse Oximetry 96 Intake and Output: Intake & Output 11/22/20 11/23/20 11/24/20 11/25/20 23:59 23:59 23:59 23:59 Intake Total 6756 / 6756 4230 / 4230 2940 / 2940 120 / 120 Output Total 400 / 400 Balance 6756 / 6756 4230 / 4230 2540 / 2540 120 / 120 Physical Exam Oriented: Normal Eyes: Normal Ear: Normal Nose: Normal Throat: Normal Respiratory: Normal Cardiovascular: Normal : Other (pustule in the groin area: bleeding ) Auscultation: Bowel Sounds: Normal Tenderness: Normal Skin: Pustular, Tender and Wound (multiple abscesses in the groins and Axilla) Musculoskeletal: Normal Psychiatric: Normal Mood Description: Calm Affect: Normal Speech Pattern: Clear and Appropriate Laboratory and Diagnostics Result Diagrams: 11/25/20 04:25 11/25/20 04:25 Labs: 11/25/20 12:30 Axilla - Left Gram Stain - Final 11/22/20 15:15 Axilla - Left Gram Stain - Final 11/22/20 15:15 Axilla - Left Wound Culture - Final Proteus Mirabilis 11/21/20 17:47 Arm - Right Gram Stain - Final 11/21/20 17:47 Arm - Right Wound Culture - Preliminary Proteus Mirabilis 11/21/20 17:47 Abdomen Gram Stain - Final 11/21/20 17:47 Abdomen Wound Culture - Preliminary 11/21/20 17:47 Arm - Left Gram Stain - Final 11/21/20 17:47 Arm - Left Wound Culture - Preliminary Proteus Mirabilis 11/21/20 17:47 Groin Gram Stain - Final 11/21/20 17:47 Groin Wound Culture - Preliminary Proteus Mirabilis 11/21/20 10:18 Blood Blood Culture - Preliminary 11/21/20 10:06 Blood Blood Culture - Preliminary Laboratory WBC 13.3 X10^3/uL (3.6-10.0) H 11/25/20 04:25 RBC 4.26 X10^6/uL (4.7-6.0) L 11/25/20 04:25 Hgb 11.2 g/dL (13.5-18.0) L 11/25/20 04:25 Hct 34.8 % (42.0-54.0) L 11/25/20 04:25 MCV 81.6 fL (80.0-100.0) 11/25/20 04:25 MCH 26.4 pg (27.0-34.0) L 11/25/20 04:25 MCHC 32.3 g/dL (33.0-35.0) L 11/25/20 04:25 RDW 14.7 % (11.6-16.5) 11/25/20 04:25 Plt Count 326 X10^3/uL (150.0-450.0) 11/25/20 04:25 MPV 8.7 fL (7.4-11.0) 11/25/20 04:25 Neut % (Auto) 89.2 % (42.0-75.0) H 11/25/20 04:25 Lymph % (Auto) 8.4 % (21.0-51.0) L 11/25/20 04:25 [place] % (Auto) 1.7 % (0.0-13.0) 11/25/20 04:25 Eos % (Auto) 0.0 % (0.9-2.9) L 11/25/20 04:25 Baso % (Auto) 0.7 % (0.2-1.0) 11/25/20 04:25 Neut # (Auto) 11.9 x10^3/uL (2.2-4.8) H 11/25/20 04:25 Lymph # (Auto) 1.1 X10^3/uL (1.3-2.9) L 11/25/20 04:25 [place] # (Auto) 0.2 x10^3/uL (0.3-0.8) L 11/25/20 04:25 Eos # (Auto) 0.0 x10^3/uL (0.0-0.2) 11/25/20 04:25 Baso # (Auto) 0.1 X10^3/uL (0.0-0.1) 11/25/20 04:25 Absolute Nucleated RBC 0.0 /100WBC 11/25/20 04:25 D-Dimer 0.88 ug/ml (0.0-0.57) H* 11/24/20 04:05 Sample Site Lr 11/24/20 05:00 ABG pH 7.450 (7.35-7.45) 11/24/20 05:00 ABG pCO2 40.0 mmHg (35.0-45.0) 11/24/20 05:00 ABG pO2 63.0 mmHg (80.0-100.0) L 11/24/20 05:00 ABG HCO3 27.8 mmol/L (22-26) H 11/24/20 05:00 ABG O2 Saturation 93.0 % (90-100) 11/24/20 05:00 ABG Base Excess 3.5 mmol/L (-2.0-2.0) H 11/24/20 05:00 Omkar Test Pos 11/24/20 05:00 A-a Gradient 37.0 mmHg 11/24/20 05:00 FiO2 21.0 11/24/20 05:00 Blood Gas Comments Cindy well sw 11/24/20 05:00 Sodium 139 mmol/L (136-145) 11/25/20 04:25 Corrected Sodium 144 mmol/L (136-145) 11/25/20 04:25 Potassium 4.3 mmol/L (3.5-5.1) 11/25/20 04:25 Chloride 103 mmol/L (98-107) 11/25/20 04:25 Carbon Dioxide 26.9 mmol/L (21-32) 11/25/20 04:25 BUN 11 mg/dL (7-18) 11/25/20 04:25 Creatinine 0.75 mg/dL (0.70-1.30) 11/25/20 04:25 Est GFR (MDRD) Af Amer > 60 (>60) 11/25/20 04:25 Est GFR (MDRD) Non-Af > 60 (>60) 11/25/20 04:25 Glucose 315 mg/dL (65-99) H 11/25/20 04:25 POC Glucose (mg/dL) 276 mg/dL (65-99) H 11/25/20 11:43 Hemoglobin A1c 9.5 % 11/22/20 05:05 Lactic Acid 1.5 mmol/L (0.4-2.0) 11/21/20 10:06 Calcium 9.7 mg/dL (8.5-10.1) 11/25/20 04:25 Corrected Calcium 10.4 mg/dL (8.5-10.1) H 11/22/20 05:05 Ferritin 389 ng/mL (26-388) H 11/21/20 10:06 Total Bilirubin 0.40 mg/dL (0.2-1.0) 11/22/20 05:05 AST 13 Units/L (15-37) L 11/22/20 05:05 ALT 21 Units/L (12-78) 11/22/20 05:05 Alkaline Phosphatase 95 Units/L (46-116) 11/22/20 05:05 Troponin I < 0.02 ng/mL (0-1.5) 11/21/20 10:06 C-Reactive Protein 104.60 mg/L (0-3.0) H 11/24/20 04:05 B-Natriuretic Peptide 7.5 pg/mL (0-79) 11/21/20 10:06 Total Protein 8.1 g/dL (6.4-8.2) 11/22/20 05:05 Albumin 2.1 g/dL (3.4-5.0) L 11/22/20 05:05 Globulin 6.0 g/dL (2.5-4.5) H 11/22/20 05:05 Albumin/Globulin Ratio 0.4 Ratio (1.1-2.1) L 11/22/20 05:05 Thyroxine (T4) 6.6 ug/dL (4.7-13.3) 11/22/20 05:05 TSH 3rd Generation 0.414 uIU/mL (0.358-3.74) 11/22/20 05:05 Specimen Type Clean catch urine 11/21/20 12:30 Urine Color Yellow (YELLOW) 11/21/20 12:30 Urine Appearance Clear (CLEAR) 11/21/20 12:30 Urine pH 7.0 (5.0 - 8.0) 11/21/20 12:30 Ur Specific [place] 1.010 (1.000-1.030) 11/21/20 12:30 Urine Protein 2+ (NEGATIVE) 11/21/20 12:30 Urine Glucose (UA) 4+ (NEGATIVE) 11/21/20 12:30 Urine Ketones Negative (NEGATIVE) 11/21/20 12:30 Urine Occult Blood 2+ (NEGATIVE) 11/21/20 12:30 Urine Nitrite Negative (NEGATIVE) 11/21/20 12:30 Urine Bilirubin Negative (NEGATIVE) 11/21/20 12:30 Urine Urobilinogen 3+ (NORMAL) 11/21/20 12:30 Ur Leukocyte Esterase 1+ (NEGATIVE) 11/21/20 12:30 Urine RBC 3-5 /HPF (0-3) A 11/21/20 12:30 Urine WBC 0-2 /HPF (0-5) 11/21/20 12:30 Ur Squamous Epith Cells Few /HPF (NEGATIVE) 11/21/20 12:30 Urine Bacteria Negative /HPF (NEGATIVE) 11/21/20 12:30 Urine Mucus Few /HPF (NEGATIVE) 11/21/20 12:30 Ur Culture Indicated? No/not indicated 11/21/20 12:30 Acetone, Semi-Quant Negative (NEGATIVE) 11/21/20 10:06 SARS-CoV-2 (PCR) Positive (NEGATIVE) A 11/21/20 10:15 Influenza Type A (PCR) Negative (NEGATIVE) 11/21/20 10:15 Influenza Type B (PCR) Negative (NEGATIVE) 11/21/20 10:15 RSV (PCR) Negative (NEGATIVE) 11/21/20 10:15 Plan (1) COVID-19 virus infection: Status: Acute (2) Pulmonary embolism: Status: Acute Qualifiers: Pulmonary embolism type: multiple subsegmental (without acute cor pulmonale) Qualified Code(s): I26.94 - Multiple subsegmental pulmonary emboli without acute cor pulmonale (3) Bronchitis: Status: Acute (4) Hidradenitis suppurativa: Status: Acute (5) HTN (hypertension): Status: Acute Qualifiers: Hypertension type: essential hypertension Qualified Code(s): I10 - Essential (primary) hypertension (6) Hypokalemia: Status: Acute (7) Diabetes: Status: Acute Qualifiers: Diabetes mellitus complication status: without complication Diabetes mellitus rat exterminator insulin use: with rat exterminator use Diabetes mellitus type: type 2 Qualified Code(s): E11.9 - Type 2 diabetes mellitus without complications; 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
[2020-11-25] MEDS: TYLENOL 325 MG TAB PO PRN (19:20)
[2020-11-25] MEDS ORDERED: ELIQUIS ONE (19:47)
[2020-11-25] MEDS ORDERED: LANTUS SC ONE (19:48)
[2020-11-25] MEDS: ELIQUIS PO SCH (20:20)
[2020-11-25] MEDS: SNACK - Diabetic Appropriate PO SCH (20:21)
[2020-11-25] MEDS ORDERED: LANTUS SC SCH (21:00)
[2020-11-26] MEDS: PERCOCET TAB 5/325 MG PO PRN (00:25)
[2020-11-26 05:29] LABS: BASOPHILS % (AUTO) 0.2 % (0.2-1.0); EOSINOPHILS % (AUTO) 0.2 % (0.9-2.9); HEMATOCRIT 35.8 % (42.0-54.0); HEMOGLOBIN 11.5 g/dL (13.5-18.0); LYMPHOCYTES # (AUTO) 1.3 X10^3/uL (1.3-2.9); LYMPHOCYTES % (AUTO) 7.9 % (21.0-51.0); MEAN CORPUSCULAR HEMOGLOBIN 26.6 pg (27.0-34.0); MEAN CORPUSCULAR HGB CONC 32.2 g/dL (33.0-35.0); MEAN CORPUSCULAR VOLUME 82.5 fL (80.0-100.0); MEAN PLATELET VOLUME 8.6 fL (7.4-11.0); MONOCYTES # (AUTO) 0.6 x10^3/uL (0.3-0.8); NEUTROPHILS # (AUTO) 14.1 x10^3/uL (2.2-4.8); NEUTROPHILS % (AUTO) 87.7 % (42.0-75.0); PLATELET COUNT 302 X10^3/uL (150.0-450.0); RED BLOOD COUNT 4.34 X10^6/uL (4.7-6.0); RED CELL DISTRIBUTION WIDTH 14.9 % (11.6-16.5); WHITE BLOOD COUNT 16.1 X10^3/uL (3.6-10.0)
[2020-11-26 05:32] LABS: BLOOD UREA NITROGEN 15 mg/dL (7-18); CALCIUM 9.4 mg/dL (8.5-10.1); CARBON DIOXIDE 27.6 mmol/L (21-32); CHLORIDE 101 mmol/L (98-107); COR NA(FOR HYPERGLY) 144 mmol/L (136-145); CREATININE 0.75 mg/dL (0.70-1.30); SODIUM 137 mmol/L (136-145); eGFR NON BLACK RACES > 60 (>60)
[2020-11-26] MEDS: WOUND CARE XX SCH (05:42)
[2020-11-26] MEDS: HumuLIN R SC PRN ×2 (05:44→11:03)
[2020-11-26] MEDS ORDERED: LANTUS SC SCH ×2 (09:00→21:00)
[2020-11-26] MEDS: NORVASC TAB 10 MG PO SCH (09:16)
[2020-11-26] MEDS: VITAMIN C PO SCH (09:16)
[2020-11-26] MEDS: ELIQUIS PO SCH (09:17)
[2020-11-26] MEDS: CRESTOR TAB 10 MG PO SCH (09:17)
[2020-11-26] MEDS: COLACE CAP 100 MG PO SCH (09:17)
[2020-11-26] MEDS: VASOTEC TAB 20 MG PO SCH (09:17)
[2020-11-26] MEDS: CIPRO IV 400 MG PREMIX* 400 MG/200 ML IV.SOLN. IV SCH (09:17)
[2020-11-26] MEDS: MILK OF MAGNESIA PO SCH (09:17)
[2020-11-26] MEDS: VITAMIN D3 125 mcg (5,000 UNITS) PO SCH (09:17)
[2020-11-26] MEDS: PULMICORT NEB TX 0.5 MG NEB SCH (09:53)
[2020-11-26] MEDS: DUONEB 0.5 MG/3 MG (3 mL) NEB SCH (09:53)
--- NOTE | 2020-11-26 12:25 | W.DIS.FURT ---
Summary of Discharge Discharge Summary of Date Date of Exam: 11/26/20 Admission Date Date of Admission: 11/21/20 Admission Diagnosis Patient Problems (Updated 11/24/20 @ 18:24 by Herrera Meeks) Bronchitis (Acute) J40 Diabetes (Acute) E11.9 HTN (hypertension) (Acute) I10 Hypokalemia (Acute) E87.6 Hidradenitis suppurativa (Acute) L73.2 Pulmonary embolism (Acute) I26.99 COVID-19 virus infection (Acute) U07.1 Hospital Course: Mr. Altman is a 55y/o male with a PMH of Type 2 DM, HTN, HLD and obesity who presented with worsening dyspnea, chills and generalized weakness. Patient states he has been feeling this way for a while but did not seek medical attention. He works in the [employer] and has been exposed to COVID. He reports having fever/chills and fatigue. He started having shortness of breath for the past couple days. Denies GI Sx. Denies sick contact at home. He also has skin pustules/small abscesses in his underarm area along with abdomen and groin. He states this has been going on for 2 years. He has seen General Surgery and had them excised before but he continue to have more spots with pus/blood drainage. IN the ED, he was noted to have elevated d-dimer, COVID-19 positive. CXR showed central bronchitis. CTA was concerning for PE. Patient was started on full dose lovenox along with IV antibiotics. He was also started on Remdesivir and Solumedrol as per COVID protocol. He also recieved bronchodilator treatment along with IS. Patient did not require O2 initially but then was on 2L NC. He was weaned off oxygen and was saturating well on room air. Dr. Elizondo with general surgery was consulted for I&D of his multiple skin abscesses. Wound Cx grew Proteus. He underwent I&D of several abscesses. Patient remained on IV antibiotics and his lesions were not draining as much. His labs were monitored daily and electrolytes replaced as needed. His FSBG were elevated due to solumedrol and insulin was adjusted as needed. Patient was also started on oral metformin and advised to follow up with PCP. He was switched from lovenox to Eliquis. Patient will f/u with PCP and Dr. Al as scheduled. Patient was told to continue to isolate at home for a total of 14 days prior to returning to work. Vital Signs: Vital Signs (72 hours) 11/23/20 13:42 11/23/20 13:45 11/23/20 14:00 Temperature Pulse Rate 98 H 82 86 Respiratory Rate Blood Pressure O2 Sat by Pulse Oximetry 83 L 95 92 L 11/23/20 14:13 11/23/20 14:15 11/23/20 14:30 Temperature Pulse Rate 83 83 85 Respiratory Rate Blood Pressure 138/68 O2 Sat by Pulse Oximetry 92 L 93 L 92 L 11/23/20 14:45 11/23/20 15:00 11/23/20 16:03 Temperature Pulse Rate 85 85 83 Respiratory Rate Blood Pressure 141/66 O2 Sat by Pulse Oximetry 92 L 91 L 91 L 11/23/20 16:04 11/23/20 16:15 11/23/20 16:33 Temperature Pulse Rate 83 86 Respiratory Rate 18 Blood Pressure 118/57 O2 Sat by Pulse Oximetry 94 L 91 L 83 L 11/23/20 16:45 11/23/20 16:47 11/23/20 17:00 Temperature Pulse Rate 80 80 84 Respiratory Rate Blood Pressure 124/63 O2 Sat by Pulse Oximetry 92 L 94 L 91 L 11/23/20 17:15 11/23/20 18:07 11/23/20 18:09 Temperature Pulse Rate 89 87 85 Respiratory Rate 12 Blood Pressure 142/66 O2 Sat by Pulse Oximetry 92 L 89 L 90 L 11/23/20 19:00 11/23/20 20:00 11/23/20 20:37 Temperature 97.9 F Pulse Rate 88 88 88 Respiratory Rate 14 20 Blood Pressure 151/85 142/69 142/59 O2 Sat by Pulse Oximetry 88 L 95 95 11/23/20 20:47 11/23/20 21:00 11/23/20 21:02 Temperature Pulse Rate 86 90 88 Respiratory Rate 22 23 Blood Pressure 136/60 136/60 O2 Sat by Pulse Oximetry 96 93 L 95 11/23/20 22:00 11/23/20 23:00 11/23/20 23:09 Temperature Pulse Rate 89 80 81 Respiratory Rate 21 22 Blood Pressure 135/63 133/92 O2 Sat by Pulse Oximetry 94 L 92 L 96 11/23/20 23:10 11/24/20 00:00 11/24/20 01:00 Temperature 97.7 F Pulse Rate 80 79 Respiratory Rate 24 18 Blood Pressure 133/92 138/64 135/67 O2 Sat by Pulse Oximetry 91 L 90 L 11/24/20 02:00 11/24/20 03:00 11/24/20 04:00 Temperature Pulse Rate 80 80 76 Respiratory Rate 18 19 22 Blood Pressure 136/65 141/74 136/68 O2 Sat by Pulse Oximetry 91 L 92 L 92 L 11/24/20 05:00 11/24/20 06:00 11/24/20 07:00 Temperature 97 F L Pulse Rate 75 76 75 Respiratory Rate 23 11 L 22 Blood Pressure 142/79 119/56 134/79 O2 Sat by Pulse Oximetry 95 95 92 L 11/24/20 08:00 11/24/20 09:00 11/24/20 09:09 Temperature Pulse Rate 72 83 86 Respiratory Rate 21 Blood Pressure 146/77 O2 Sat by Pulse Oximetry 95 95 95 11/24/20 09:34 11/24/20 10:00 11/24/20 11:00 Temperature Pulse Rate 94 H 95 H 85 Respiratory Rate 14 22 21 Blood Pressure 139/65 132/62 O2 Sat by Pulse Oximetry 97 94 L 90 L 11/24/20 11:01 11/24/20 12:00 11/24/20 12:01 Temperature Pulse Rate 85 83 Respiratory Rate 18 20 Blood Pressure 110/53 136/63 O2 Sat by Pulse Oximetry 92 L 94 L 11/24/20 13:54 11/24/20 13:55 11/24/20 13:56 Temperature Pulse Rate 85 80 76 Respiratory Rate 19 6 L Blood Pressure 117/68 O2 Sat by Pulse Oximetry 98 96 95 11/24/20 14:00 11/24/20 15:00 11/24/20 16:00 Temperature Pulse Rate 80 82 Respiratory Rate 18 21 Blood Pressure 108/54 121/59 131/66 O2 Sat by Pulse Oximetry 94 L 93 L 11/24/20 17:51 11/24/20 17:52 11/24/20 17:54 Temperature Pulse Rate 76 76 73 Respiratory Rate 17 Blood Pressure 120/60 O2 Sat by Pulse Oximetry 95 95 95 11/24/20 18:00 11/24/20 19:00 11/24/20 20:05 Temperature 98.0 F Pulse Rate 79 84 81 Respiratory Rate 22 24 21 Blood Pressure 116/59 133/64 112/62 O2 Sat by Pulse Oximetry 92 L 92 L 95 11/24/20 21:00 11/24/20 21:23 11/24/20 21:45 Temperature Pulse Rate 76 71 Respiratory Rate 23 20 Blood Pressure 108/69 O2 Sat by Pulse Oximetry 95 96 11/24/20 22:00 11/24/20 22:45 11/24/20 23:00 Temperature Pulse Rate 78 78 Respiratory Rate 21 18 27 H Blood Pressure 115/60 126/76 O2 Sat by Pulse Oximetry 93 L 92 L 11/25/20 00:00 11/25/20 01:00 11/25/20 02:00 Temperature 98 F Pulse Rate 69 69 63 Respiratory Rate 15 17 28 H Blood Pressure 116/54 140/65 121/60 O2 Sat by Pulse Oximetry 93 L 92 L 92 L 11/25/20 03:00 11/25/20 04:00 11/25/20 05:01 Temperature 97.9 F Pulse Rate 60 58 L 57 L Respiratory Rate 18 19 16 Blood Pressure 122/60 118/59 92/51 O2 Sat by Pulse Oximetry 92 L 91 L 91 L 11/25/20 06:00 11/25/20 06:01 11/25/20 07:00 Temperature Pulse Rate 62 64 60 Respiratory Rate 22 29 H 19 Blood Pressure 140/72 119/60 O2 Sat by Pulse Oximetry 94 L 96 94 L 11/25/20 08:00 11/25/20 08:41 11/25/20 09:00 Temperature 97.5 F L Pulse Rate 59 L 68 77 Respiratory Rate 16 17 Blood Pressure 119/61 134/64 O2 Sat by Pulse Oximetry 92 L 96 92 L 11/25/20 10:00 11/25/20 11:00 11/25/20 12:00 Temperature 97.8 F Pulse Rate 67 63 83 Respiratory Rate 20 18 15 Blood Pressure 120/58 131/61 165/74 O2 Sat by Pulse Oximetry 92 L 94 L 100 11/25/20 12:12 11/25/20 13:00 11/25/20 14:00 Temperature Pulse Rate 65 83 87 Respiratory Rate 15 19 Blood Pressure 165/74 129/61 O2 Sat by Pulse Oximetry 96 100 96 11/25/20 15:00 11/25/20 16:00 11/25/20 17:00 Temperature 97.3 F L Pulse Rate 73 71 82 Respiratory Rate 24 14 22 Blood Pressure 146/71 135/68 168/77 O2 Sat by Pulse Oximetry 97 95 96 11/25/20 17:13 11/25/20 17:15 11/25/20 18:00 Temperature Pulse Rate 64 78 93 H Respiratory Rate 19 23 Blood Pressure 147/69 137/58 123/58 O2 Sat by Pulse Oximetry 97 94 L 91 L 11/25/20 19:00 11/25/20 19:14 11/25/20 19:20 Temperature Pulse Rate 86 82 Respiratory Rate 30 H 17 20 Blood Pressure 124/66 O2 Sat by Pulse Oximetry 93 L 94 L 11/25/20 20:06 11/25/20 20:19 11/25/20 20:20 Temperature 98.1 F Pulse Rate 94 H 80 Respiratory Rate 28 H 14 20 Blood Pressure 138/69 O2 Sat by Pulse Oximetry 93 L 94 L 11/25/20 20:50 11/25/20 21:00 11/25/20 22:00 Temperature Pulse Rate 85 79 87 Respiratory Rate 23 23 Blood Pressure 151/71 O2 Sat by Pulse Oximetry 96 95 93 L 11/25/20 23:00 11/26/20 00:00 11/26/20 00:25 Temperature Pulse Rate 71 66 Respiratory Rate 19 20 20 Blood Pressure 130/58 O2 Sat by Pulse Oximetry 93 L 93 L 11/26/20 01:00 11/26/20 01:20 11/26/20 02:00 Temperature Pulse Rate 83 60 Respiratory Rate 42 H 20 18 Blood Pressure O2 Sat by Pulse Oximetry 93 L 94 L 11/26/20 02:01 11/26/20 03:00 11/26/20 04:00 Temperature 98 F Pulse Rate 60 55 L 57 L Respiratory Rate 20 16 15 Blood Pressure 96/53 141/66 O2 Sat by Pulse Oximetry 94 L 96 94 L 11/26/20 05:00 11/26/20 05:30 11/26/20 06:00 Temperature Pulse Rate 54 L 59 L 58 L Respiratory Rate 0 L 16 22 Blood Pressure 133/68 139/63 O2 Sat by Pulse Oximetry 96 91 L 92 L Labs: Laboratory Last Values WBC 16.1 X10^3/uL (3.6-10.0) H 11/26/20 05:05 RBC 4.34 X10^6/uL (4.7-6.0) L 11/26/20 05:05 Hgb 11.5 g/dL (13.5-18.0) L 11/26/20 05:05 Hct 35.8 % (42.0-54.0) L 11/26/20 05:05 MCV 82.5 fL (80.0-100.0) 11/26/20 05:05 MCH 26.6 pg (27.0-34.0) L 11/26/20 05:05 MCHC 32.2 g/dL (33.0-35.0) L 11/26/20 05:05 RDW 14.9 % (11.6-16.5) 11/26/20 05:05 Plt Count 302 X10^3/uL (150.0-450.0) 11/26/20 05:05 MPV 8.6 fL (7.4-11.0) 11/26/20 05:05 Neut % (Auto) 87.7 % (42.0-75.0) H 11/26/20 05:05 Lymph % (Auto) 7.9 % (21.0-51.0) L 11/26/20 05:05 [place] % (Auto) 4.0 % (0.0-13.0) 11/26/20 05:05 Eos % (Auto) 0.2 % (0.9-2.9) L 11/26/20 05:05 Baso % (Auto) 0.2 % (0.2-1.0) 11/26/20 05:05 Neut # (Auto) 14.1 x10^3/uL (2.2-4.8) H 11/26/20 05:05 Lymph # (Auto) 1.3 X10^3/uL (1.3-2.9) 11/26/20 05:05 [place] # (Auto) 0.6 x10^3/uL (0.3-0.8) 11/26/20 05:05 Eos # (Auto) 0.0 x10^3/uL (0.0-0.2) 11/26/20 05:05 Baso # (Auto) 0.0 X10^3/uL (0.0-0.1) 11/26/20 05:05 Absolute Nucleated RBC 0.0 /100WBC 11/26/20 05:05 D-Dimer 0.88 ug/ml (0.0-0.57) H* 11/24/20 04:05 Sample Site Lr 11/24/20 05:00 ABG pH 7.450 (7.35-7.45) 11/24/20 05:00 ABG pCO2 40.0 mmHg (35.0-45.0) 11/24/20 05:00 ABG pO2 63.0 mmHg (80.0-100.0) L 11/24/20 05:00 ABG HCO3 27.8 mmol/L (22-26) H 11/24/20 05:00 ABG O2 Saturation 93.0 % (90-100) 11/24/20 05:00 ABG Base Excess 3.5 mmol/L (-2.0-2.0) H 11/24/20 05:00 Omkar Test Pos 11/24/20 05:00 A-a Gradient 37.0 mmHg 11/24/20 05:00 FiO2 21.0 11/24/20 05:00 Blood Gas Comments Cindy well sw 11/24/20 05:00 Sodium 137 mmol/L (136-145) 11/26/20 05:05 Corrected Sodium 144 mmol/L (136-145) 11/26/20 05:05 Potassium 3.8 mmol/L (3.5-5.1) 11/26/20 05:05 Chloride 101 mmol/L (98-107) 11/26/20 05:05 Carbon Dioxide 27.6 mmol/L (21-32) 11/26/20 05:05 BUN 15 mg/dL (7-18) 11/26/20 05:05 Creatinine 0.75 mg/dL (0.70-1.30) 11/26/20 05:05 Est GFR (MDRD) Af Amer > 60 (>60) 11/26/20 05:05 Est GFR (MDRD) Non-Af > 60 (>60) 11/26/20 05:05 Glucose 388 mg/dL (65-99) H 11/26/20 05:05 POC Glucose (mg/dL) 326 mg/dL (65-99) H 11/26/20 10:59 Hemoglobin A1c 9.5 % 11/22/20 05:05 Lactic Acid 1.5 mmol/L (0.4-2.0) 11/21/20 10:06 Calcium 9.4 mg/dL (8.5-10.1) 11/26/20 05:05 Corrected Calcium 10.4 mg/dL (8.5-10.1) H 11/22/20 05:05 Ferritin 389 ng/mL (26-388) H 11/21/20 10:06 Total Bilirubin 0.40 mg/dL (0.2-1.0) 11/22/20 05:05 AST 13 Units/L (15-37) L 11/22/20 05:05 ALT 21 Units/L (12-78) 11/22/20 05:05 Alkaline Phosphatase 95 Units/L (46-116) 11/22/20 05:05 Troponin I < 0.02 ng/mL (0-1.5) 11/21/20 10:06 C-Reactive Protein 104.60 mg/L (0-3.0) H 11/24/20 04:05 B-Natriuretic Peptide 7.5 pg/mL (0-79) 11/21/20 10:06 Total Protein 8.1 g/dL (6.4-8.2) 11/22/20 05:05 Albumin 2.1 g/dL (3.4-5.0) L 11/22/20 05:05 Globulin 6.0 g/dL (2.5-4.5) H 11/22/20 05:05 Albumin/Globulin Ratio 0.4 Ratio (1.1-2.1) L 11/22/20 05:05 Thyroxine (T4) 6.6 ug/dL (4.7-13.3) 11/22/20 05:05 TSH 3rd Generation 0.414 uIU/mL (0.358-3.74) 11/22/20 05:05 Specimen Type Clean catch urine 11/21/20 12:30 Urine Color Yellow (YELLOW) 11/21/20 12:30 Urine Appearance Clear (CLEAR) 11/21/20 12:30 Urine pH 7.0 (5.0 - 8.0) 11/21/20 12:30 Ur Specific [place] 1.010 (1.000-1.030) 11/21/20 12:30 Urine Protein 2+ (NEGATIVE) 11/21/20 12:30 Urine Glucose (UA) 4+ (NEGATIVE) 11/21/20 12:30 Urine Ketones Negative (NEGATIVE) 11/21/20 12:30 Urine Occult Blood 2+ (NEGATIVE) 11/21/20 12:30 Urine Nitrite Negative (NEGATIVE) 11/21/20 12:30 Urine Bilirubin Negative (NEGATIVE) 11/21/20 12:30 Urine Urobilinogen 3+ (NORMAL) 11/21/20 12:30 Ur Leukocyte Esterase 1+ (NEGATIVE) 11/21/20 12:30 Urine RBC 3-5 /HPF (0-3) A 11/21/20 12:30 Urine WBC 0-2 /HPF (0-5) 11/21/20 12:30 Ur Squamous Epith Cells Few /HPF (NEGATIVE) 11/21/20 12:30 Urine Bacteria Negative /HPF (NEGATIVE) 11/21/20 12:30 Urine Mucus Few /HPF (NEGATIVE) 11/21/20 12:30 Ur Culture Indicated? 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 Pt is to keep follow up appointment as instructed and take medications as ordered. Discharge Medications Discharge Medications: naproxen [From Aleve] Allergy (Verified 11/21/20 09:25) sulfamethoxazole [From Bactrim] Allergy (Verified 11/21/20 09:25) trimethoprim [From Bactrim] Allergy (Verified 11/21/20 09:25) CONTINUE taking the following medications amlodipine [Norvasc] 10 mg PO DAILY 11/21/20 [History] enalapril maleate [Vasotec] 20 mg PO BID 11/21/20 [History] rosuvastatin 20 mg PO DAILY 11/21/20 [History] New Prescriptions Tresiba FlexTouch U-100 20 unit SUBCUT DAILY #0 ml 11/26/20 [Rx] apixaban [Eliquis] 5 mg PO BID 30 Days #60 tab 11/26/20 [Rx] ciprofloxacin HCl [Cipro] 500 mg PO BID 7 Days #14 tab 11/26/20 [Rx] metformin 500 mg PO BIDWM 30 Days #60 tab 11/26/20 [Rx] metronidazole [Flagyl] 500 mg PO TID 7 Days #21 tab 11/26/20 [Rx] Follow up and Referral Follow Up: 1 Week (PCP) 2 Weeks (Surgery ) Discharge Disposition Discharge Disposition: Home Discharge Condition: Stable Discharge Plan Discharge Plan Hospital Course: Mr. Altman is a 55y/o male with a PMH of Type 2 DM, HTN, HLD and obesity who presented with worsening dyspnea, chills and generalized weakness. Patient states he has been feeling this way for a while but did not seek medical attention. He works in the [employer] and has been exposed to COVID. He reports having fever/chills and fatigue. He started having shortness of breath for the past couple days. Denies GI Sx. Denies sick contact at home. He also has skin pustules/small abscesses in his underarm area along with abdomen and groin. He states this has been going on for 2 years. He has seen General Surgery and had them excised before but he continue to have more spots with pus/blood drainage. IN the ED, he was noted to have elevated d-dimer, COVID-19 positive. CXR showed central bronchitis. CTA was concerning for PE. Patient was started on full dose lovenox along with IV antibiotics. He was also started on Remdesivir and Solumedrol as per COVID protocol. He also recieved bronchodilator treatment along with IS. Patient did not require O2 initially but then was on 2L NC. He was weaned off oxygen and was saturating well on room air. Dr. Elizondo with general surgery was consulted for I&D of his multiple skin abscesses. Wound Cx grew Proteus. He underwent I&D of several abscesses. Patient remained on IV antibiotics and his lesions were not draining as much. His labs were monitored daily and electrolytes replaced as needed. His FSBG were elevated due to solumedrol and insulin was adjusted as needed. Patient was also started on oral metformin and advised to follow up with PCP. He was switched from lovenox to Eliquis. Patient will f/u with PCP and Dr. Elizondo as scheduled. Patient was told to continue to isolate at home for a total of 14 days prior to returning to work. Patient Disposition: HOME, SELF-CARE Condition: Stable Health Concerns: Post Hospitalization: new medications and changes needed to prevent readmission or further decline. Pt educated and given instructions on all concerns. Care Plan Goals: Problem: Respiratory Complications Goal: Improved Uncomplicated Respiratory Status Instructions: Follow provided instructions. Follow up with primary physician as directed. Contact primary care physician or report to the closest Emergency Room if condition worsens. Problem: Infection Goal: Temperature within normal limits. Resolved infection. Instructions: Follow provided instructions. Follow up with primary physician as directed. Contact primary care physician or report to the closest Emergency Room if condition worsens. Plan of Treatment: Continue with present treatment and follow up plan. Pt is to keep follow up appointment as instructed and take medications as ordered. Prescription drug monitoring program results: PDMP reviewed and no concerns identified Prescriptions: New metformin 500 mg Tablet 500 mg PO BIDWM 30 Days Qty: 60 RF: 0 Eliquis 5 mg Tablet 5 mg PO BID 30 Days Qty: 60 RF: 1 ciprofloxacin HCl [Cipro] 500 mg tablet 500 mg PO BID 7 Days Qty: 14 RF: 0 metronidazole [Flagyl] 500 mg tablet 500 mg PO TID 7 Days Qty: 21 RF: 0 Continued enalapril maleate [Vasotec] 5 mg Tablet 20 mg PO BID RF: 0 amlodipine [Norvasc] 2.5 mg Tablet 10 mg PO DAILY RF: 0 rosuvastatin 20 mg Tablet 20 mg PO DAILY RF: 0 Tresiba FlexTouch U-100 100 unit/mL (3 mL) Insulin Pen 20 unit SUBCUT DAILY Qty: 0 RF: 0 Orders to Discharge Patient Discharge Orders: Discharge (Routine); Ordered 11/26/20 Ordered By: Irma Page Follow ups/Referrals Follow ups/Referrals: XANDER CHEN [STAFF PHYSICIAN] - 12/03/20 10:00 am Toni KRISHNAMURTHY [Primary Care Provider] - 12/03/20 1:15 pm (TeleMed Appointment) Instructions Instructions: Incentive Spirometer, Viral Respiratory Infection, [id number], Hand Washing, [id number], Pulmonary Embolism, Upper Respiratory Infection, Adult, Type 2 Diabetes Mellitus, Self Care, Adult, [id number], Droplet Precautions, [id number], Contact Precautions, [id number], Hypertension, [id number]-[id number] Activity Restrictions/Additional Instructions: You may shower, pat wounds dry. If drainage is seen from wounds cover with gauze. If no drainage you may leave open to air. Stand Alone Forms: Excuse From Work, Precautions for COVID19, Patient Portal, Social Distancing
--- NOTE | 2020-11-26 12:59 | RAD ---
HISTORYSOBSTUDYAP chestCOMPARISONMarch 2020FINDINGSThere is no change in appearance of heart or lungs. Similar normal heart size and contour. The lungs remain symmetrically inflated. No evidence for pneumonia, atelectasis or pulmonary edema.IMPRESSIONNo significant interval change or acute chest abnormality identified.Electronically signed by: TANIA YEN (Nov 24, 2020 06:44:33)
[2020-11-26 14:16] VITALS: BP 134/65
[2020-11-26] MEDS ORDERED: GLUCOPHAGE PO SCH (17:00)
== END 2020-11-26 13:10 | disposition home or self-care (01) ==
LOC: ICU 09:19 → ER 09:19 → ICU 14:35
PROVIDERS: ADMIT Internal Medicine; ATTEND Internal Medicine
DX: L02.214 Cutaneous abscess of groin; E11.65 Type 2 diabetes mellitus with hyperglycemia; E87.6 Hypokalemia; Z79.4 Long term (current) use of insulin; L02.412 Cutaneous abscess of left axilla; R79.82 Elevated C-reactive protein (CRP); L02.413 Cutaneous abscess of right upper limb; R79.89 Other specified abnormal findings of blood chemistry; I26.94 Multiple subsegmental thrombotic pulmonary emboli without acute cor pulmonale; B96.4 Proteus (mirabilis) (morganii) as the cause of diseases classified elsewhere; I10 Essential (primary) hypertension; L73.2 Hidradenitis suppurativa; J20.8 Acute bronchitis due to other specified organisms; L02.414 Cutaneous abscess of left upper limb; U07.1 COVID-19; R06.02 Shortness of breath

== ENCOUNTER 2020-12-13 16:00 | Observation (INO) ==
--- NOTE | 2020-12-13 17:03 | DR.GENAD ---
HPI Time Seen Time Seen by Provider: 12/13/20 16:59 PCP Primary Care Physician: LOLLY KRISHNAMURTHY AND WAS ADMITED TO DR. RODRIGUEZ AND [place] HPI Comment HPI Comment: PATIENT COMPLAINS OF SWELLING TO THIGH AND SCROTUM WITH DRAINAGE X 4-5 DAYS.HISTORY OF RECURRENT ABSCESSES, TREATED WITH ANTIBIOTIC PAIN WEEK. DENIES FEVER, CHILLS Complaint/Symptoms Chief Complaint Doctors Comments: PATIENT COMPLAINS OF PAINFUL SWELLING OVER THIGH AND SCROTUM Chief Complaint:: ABCESS TO THE GENITAL AREA AND TO THE GROIN. PT HAS DIFF SITTING. NOTED LARGE FIST SIZE ABESS LIKE FORMATION TO THE LEFT PRIVATE AREA. NO DRAINAGE COVID-19 Coronavirus risk:travel/contact w/high risk person: No Has patient experienced Coronavirus symptoms: No Source History Provided: Patient Mode of Arrival Mode of Arrival: Ambulatory Timing Onset of Chief Complaint: 12/13/20 PMH PMH Past Medical History: Yes Past Medical History: Diabetes, Dyslipidemia and Hypertension Past Medical History Comment: ABCESS Past Surgical History: Yes Surgical History: Tonsillectomy Past Surgical History Comment: BOILS Family History History of Family Medical Conditions: Yes Family Medical History: Diabetes Mellitus, Heart Failure and Hypertension Social History Alcohol Use: None Do you use any recreational Drugs:: No Lives With: Family Lives Where: Home Travel Risk Coronavirus risk:travel/contact w/high risk person: No Has patient experienced Coronavirus symptoms: No Infectious screening In the last 2 months have you had wt loss of >10#?: NO Have you had fever, night sweats or hemotysis?: No Have you traveled outside the country in the last 6 months?: No Isolation: Standard ROS Review of Systems Constitutional: No Symptoms Reported Eyes: No Symptoms Reported ENTM: No Symptoms Reported Respiratoy: No Symptoms Reported Cardiovascular: No Symptoms Reported Gastrointestinal/Abdominal: No Symptoms Reported Genitourinary: No Symptoms Reported Neurological: No Symptoms Reported Musculoskeletal: No Symptoms Reported Integumentary: See HPI and Lesions (OVER SCROTUM, THIGH) Hematologic/Lymphatic: No Symptoms Reported Endocrine: No Symptoms Reported Psychiatric: No Symptoms Reported All Other Systems: Reviewed and Negative PE Vital Signs Vitals: Temperature 100.8 F Pulse Rate 87 Respiratory Rate 16 Blood Pressure 109/57 O2 Sat by Pulse Oximetry 94 General Limitations: No Limitations General Appearance: Alert and In No Apparent Distress Head Head Exam: Normal Inspection and Atraumatic Eyes Eye exam: Normal Appearance, PERRL and EOMI ENT ENT Exam: Normal Exam External Ear Exam: Normal External Inspection TM/Canal Exam: Bilateral: Normal Nose Exam: Normal Nose Exam Mouth Exam: Normal Inspection Throat Exam: Normal Inspection Neck Neck Exam: Normal Inspection and Full ROM Chest Chest Inspection: Normal Inspection Respiratory Respiratory Exam: Normal Lung Sounds Bilat Respiratory Exam: Bilateral: Clear to Auscultation Cardiovascular Cardiovascular Exam: Regular Rate and Normal Rhythm Abdominal Exam Abdominal Exam: Normal Inspection, Normal Bowel Sounds and Soft Extremities Extremities Exam: Tenderness (WITH FLUCTUANT SWELLING 2CM X 5CM AND 2CM X 2CM FIRM SWELLING PROXIMAL LEFT THIGH MEDIAL ASPECT, FLUCTUANT SWELLING 1CM X 1.5 CM OVER SCROTUM) Back Back Exam: Normal Inspection Neurologic Neurological Exam: Alert and Oriented X3 Psychiatric Psychiatric Exam: Normal Affect and Normal Mood Skin Skin Exam: Warm, Dry, Intact and Normal Color MDM Differential Diagnosis Differential Diagnosis: SCROTAL ABSCESSES, LEFT THIGH ABSCESSES. COURSE Treatment Treatment: IV NORMAL SALINE 200ML/HR, AFTER 2 SETS OF BLOOD CULTURES, VANCOMYCIN 1GM IVPB Consultation Call Returned: 18:50 Consultation Comments: DISCUSSED FINDINGS WITH DR DANIELLE AT 1850 FOR OBSERVATION ROR Labs Reviewed Laboratory Results Reviewed?: Yes Result Diagrams: 12/13/20 17:24 12/13/20 17:24 Laboratory: WBC 12.1 X10^3/uL (3.6-10.0) H 12/13/20 17:24 RBC 4.78 X10^6/uL (4.7-6.0) 12/13/20 17:24 Hgb 13.2 g/dL (13.5-18.0) L 12/13/20 17:24 Hct 39.4 % (42.0-54.0) L 12/13/20 17:24 MCV 82.5 fL (80.0-100.0) 12/13/20 17:24 MCH 27.5 pg (27.0-34.0) 12/13/20 17:24 MCHC 33.4 g/dL (33.0-35.0) 12/13/20 17:24 RDW 15.8 % (11.6-16.5) 12/13/20 17:24 Plt Count 223 X10^3/uL (150.0-450.0) 12/13/20 17:24 MPV 9.4 fL (7.4-11.0) 12/13/20 17:24 Neut % (Auto) 72.9 % (42.0-75.0) 12/13/20 17:24 Lymph % (Auto) 17.3 % (21.0-51.0) L 12/13/20 17:24 [place] % (Auto) 7.4 % (0.0-13.0) 12/13/20 17:24 Eos % (Auto) 1.6 % (0.9-2.9) 12/13/20 17:24 Baso % (Auto) 0.8 % (0.2-1.0) 12/13/20 17:24 Neut # (Auto) 8.9 x10^3/uL (2.2-4.8) H 12/13/20 17:24 Lymph # (Auto) 2.1 X10^3/uL (1.3-2.9) 12/13/20 17:24 [place] # (Auto) 0.9 x10^3/uL (0.3-0.8) H 12/13/20 17:24 Eos # (Auto) 0.2 x10^3/uL (0.0-0.2) 12/13/20 17:24 Baso # (Auto) 0.1 X10^3/uL (0.0-0.1) 12/13/20 17:24 Absolute Nucleated RBC 0.1 /100WBC 12/13/20 17:24 Sodium 136 mmol/L (136-145) 12/13/20 17:24 Corrected Sodium 144 mmol/L (136-145) 12/13/20 17:24 Potassium 4.2 mmol/L (3.5-5.1) 12/13/20 17:24 Chloride 99 mmol/L (98-107) 12/13/20 17:24 Carbon Dioxide 31.5 mmol/L (21-32) 12/13/20 17:24 BUN 9 mg/dL (7-18) 12/13/20 17:24 Creatinine 0.88 mg/dL (0.70-1.30) 12/13/20 17:24 Est GFR (MDRD) Af Amer > 60 (>60) 12/13/20 17:24 Est GFR (MDRD) Non-Af > 60 (>60) 12/13/20 17:24 Glucose 440 mg/dL (65-99) H 12/13/20 17:24 Calcium 9.6 mg/dL (8.5-10.1) 12/13/20 17:24 Opioid Opioid Risk Tool Age (Sathish box if 16-45): No History of Preadolescent Sexual Abuse: No Total: 0 Total Score Risk Category: Low Risk Copyright: Martin CLARK predicting aberrant behaviors Diagnosis Discharge Problem: Abscess of scrotal wall, Abscess of left thigh
[2020-12-13] MEDS ORDERED: VANCOMYCIN IV *PREMIX 1 G/200 ML BAG 1 G/200 ML PIGGYBACK IV ONE ×3 (17:04→20:49)
[2020-12-13 17:50] LABS: BASOPHILS # (AUTO) 0.1 X10^3/uL (0.0-0.1); BASOPHILS % (AUTO) 0.8 % (0.2-1.0); EOSINOPHILS # (AUTO) 0.2 x10^3/uL (0.0-0.2); EOSINOPHILS % (AUTO) 1.6 % (0.9-2.9); HEMATOCRIT 39.4 % (42.0-54.0); HEMOGLOBIN 13.2 g/dL (13.5-18.0); LYMPHOCYTES # (AUTO) 2.1 X10^3/uL (1.3-2.9); LYMPHOCYTES % (AUTO) 17.3 % (21.0-51.0); MEAN CORPUSCULAR HEMOGLOBIN 27.5 pg (27.0-34.0); MEAN CORPUSCULAR HGB CONC 33.4 g/dL (33.0-35.0); MEAN CORPUSCULAR VOLUME 82.5 fL (80.0-100.0); MEAN PLATELET VOLUME 9.4 fL (7.4-11.0); MONOCYTES # (AUTO) 0.9 x10^3/uL (0.3-0.8); MONOCYTES % (AUTO) 7.4 % (0.0-13.0); NEUTROPHILS # (AUTO) 8.9 x10^3/uL (2.2-4.8); NEUTROPHILS % (AUTO) 72.9 % (42.0-75.0); PLATELET COUNT 223 X10^3/uL (150.0-450.0); RED BLOOD COUNT 4.78 X10^6/uL (4.7-6.0); RED CELL DISTRIBUTION WIDTH 15.8 % (11.6-16.5); WHITE BLOOD COUNT 12.1 X10^3/uL (3.6-10.0)
[2020-12-13 17:57] LABS: BLOOD UREA NITROGEN 9 mg/dL (7-18); CALCIUM 9.6 mg/dL (8.5-10.1); CARBON DIOXIDE 31.5 mmol/L (21-32); CHLORIDE 99 mmol/L (98-107); COR NA(FOR HYPERGLY) 144 mmol/L (136-145); CREATININE 0.88 mg/dL (0.70-1.30); SODIUM 136 mmol/L (136-145); eGFR NON BLACK RACES > 60 (>60)
[2020-12-13] MEDS ORDERED: HumuLIN R IV STA (19:03)
[2020-12-13] MEDS ORDERED: HumuLIN R ONE ×3 (19:03→23:15)
[2020-12-13] MEDS ORDERED: VANCOMYCIN IV *PREMIX 1 G/200 ML BAG 1 G/200 ML PIGGYBACK IV SCH (20:32)
[2020-12-13] MEDS ORDERED: PHARMACY CONSULT - VANCOMYCIN XX SCH (21:00)
[2020-12-13] MEDS: VASOTEC TAB 5 MG PO SCH (22:30)
[2020-12-13] MEDS: NS 1000 ML 1,000 ML IV SCH (22:30)
--- NOTE | 2020-12-13 23:03 | DR.H&P ---
H&P History & Physical for Day of: H&P Date: 12/13/20 Chief Complaint Chief Complaint: 55 yo male with history of diabetes, status post incision and drainage of abscess of the axilla recently. Also diagnosed with pulmonary embolus at that time and start on Eliquis. Presents now with new onset of purulent drainage from the left groin, left proximal media thigh and left axill a. Denies fever . Allergies Allergies Allergy/AdvReac Type Severity Reaction Status Date / Time naproxen [From Aleve] Allergy Verified 12/13/20 16:30 sulfamethoxazole Allergy Verified 12/13/20 16:30 [From Bactrim] trimethoprim [From Bactrim] Allergy Verified 12/13/20 16:30 History of Present Illness History of Present Illness: See chief complaint above. Past Medical History Past Medical History: Diabetes, Dyslipidemia and Hypertension Past Surgical History Surgical History: Tonsillectomy Additional Surgical History: Hidradenitis suppurativa Family History Family Medical History: Diabetes Mellitus, Heart Failure and Hypertension Social History Does patient currently use any type of tobacco product: No Have you used tobacco products in the last 12 months: No Does any household member use tobacco: No Alcohol Use: None Medications Home Medications: Amlodopine 10 mg po daily Eliquis 5 mg B Metformin 500 mg BID Enalapril 20 mg po BID Rosuvastin 20 mg po daily Tresiba 20 units SQ daily Labs Result Diagrams: 12/13/20 17:24 12/13/20 22:51 Labs: Laboratory WBC 12.1 X10^3/uL (3.6-10.0) H 12/13/20 17:24 RBC 4.78 X10^6/uL (4.7-6.0) 12/13/20 17:24 Hgb 13.2 g/dL (13.5-18.0) L 12/13/20 17:24 Hct 39.4 % (42.0-54.0) L 12/13/20 17:24 MCV 82.5 fL (80.0-100.0) 12/13/20 17:24 MCH 27.5 pg (27.0-34.0) 12/13/20 17:24 MCHC 33.4 g/dL (33.0-35.0) 12/13/20 17:24 RDW 15.8 % (11.6-16.5) 12/13/20 17:24 Plt Count 223 X10^3/uL (150.0-450.0) 12/13/20 17:24 MPV 9.4 fL (7.4-11.0) 12/13/20 17:24 Neut % (Auto) 72.9 % (42.0-75.0) 12/13/20 17:24 Lymph % (Auto) 17.3 % (21.0-51.0) L 12/13/20 17:24 [place] % (Auto) 7.4 % (0.0-13.0) 12/13/20 17:24 Eos % (Auto) 1.6 % (0.9-2.9) 12/13/20 17:24 Baso % (Auto) 0.8 % (0.2-1.0) 12/13/20 17:24 Neut # (Auto) 8.9 x10^3/uL (2.2-4.8) H 12/13/20 17:24 Lymph # (Auto) 2.1 X10^3/uL (1.3-2.9) 12/13/20 17:24 [place] # (Auto) 0.9 x10^3/uL (0.3-0.8) H 12/13/20 17:24 Eos # (Auto) 0.2 x10^3/uL (0.0-0.2) 12/13/20 17:24 Baso # (Auto) 0.1 X10^3/uL (0.0-0.1) 12/13/20 17:24 Absolute Nucleated RBC 0.1 /100WBC 12/13/20 17:24 Sodium 136 mmol/L (136-145) 12/13/20 17:24 Corrected Sodium 144 mmol/L (136-145) 12/13/20 17:24 Potassium 4.2 mmol/L (3.5-5.1) 12/13/20 17:24 Chloride 99 mmol/L (98-107) 12/13/20 17:24 Carbon Dioxide 31.5 mmol/L (21-32) 12/13/20 17:24 BUN 9 mg/dL (7-18) 12/13/20 17:24 Creatinine 0.88 mg/dL (0.70-1.30) 12/13/20 17:24 Est GFR (MDRD) Af Amer > 60 (>60) 12/13/20 17:24 Est GFR (MDRD) Non-Af > 60 (>60) 12/13/20 17:24 Glucose 440 mg/dL (65-99) H 12/13/20 17:24 POC Glucose (mg/dL) 406 mg/dL (65-99) H 12/13/20 22:35 Calcium 9.6 mg/dL (8.5-10.1) 12/13/20 17:24 SARS CoV-2 RNA Rapid SHAKIR Negative (NEGATIVE) 12/13/20 20:45 Review of Systems Constitutional: No Symptoms Reported; denies See HPI, Fever, Chills, Sweats, Weakness, Malaise and Other Eyes: No Symptoms Reported ENT: No Symptoms Reported Respiratory: No Symptoms Reported and Wheezing Cardiovascular: No Symptoms Reported Gastrointestinal: denies No Symptoms Reported, See HPI, Nausea, Vomiting, A bdominal Pain, Diarrhea, Constipation, Melena, Hematochezia and Other Genitourinary: denies No Symptoms Reported, See HPI, Dysuria, Frequency, Incontinence, Hematuria, Retention and Other Musculoskeletal: denies No Symptoms Reported, See HPI, Shoulder Pain, Arm Pain, Back Pain, Hand Pain, Leg Pain, Foot Pain, Neck Pain and Other Skin: No Symptoms Reported, See HPI, Rash, Lesions (draining abscesses to the left axilla, left groin and left medial proxinal thigh), Jaundice, Bruising, Wound, Ecchymosis and Other Neurological: No Symptoms Reported Physical Exam Vital Signs: Temperature 98.6 F Pulse Rate [Left Brachial] 104 Pulse Rate 87 Respiratory Rate 18 Blood Pressure [Left Arm] 133/68 Blood Pressure 109/57 O2 Sat by Pulse Oximetry 98 Oriented: Normal, Time and Place Eyes: Normal; negative Diplopia Ear: Normal Nose: Normal; negative Injected, Discharge, Blood and Other Throat: Normal; negative Tonsillar Hypertrophy, Red, Exudate, Dry and Other Respiratory: Clear Throughout Cardiovascular: Normal : Normal Auscultation: Bowel Sounds: Normal; negative Other Palpation: Normal Skin: Other ( abscesses as described above,) Musculoskeletal: Normal Psychiatric: Normal Speech Pattern: Clear Assessment/Plan (1) Hidradenitis suppurativa: Status: Acute Plan: Incision and drainage of all abscesses tomorrow to the left axilla, left thigh and left groin (2) Pulmonary embolism: Qualifiers: Acute cor pulmonale presence: without acute cor pulmonale Chronicity: acute Pulmonary embolism type: unspecified Qualified Code(s): I26.99 - Other pulmonary embolism without acute cor pulmonale Status: Acute Plan: Continue Eliquis (3) Abscess of scrotal wall: Status: Acute Plan: as above (4) Abscess of left thigh: Status: Acute Plan: as above (5) Diabetes: Qualifiers: Diabetes mellitus complication status: without complication 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
[2020-12-13] MEDS: HumuLIN R SUBCUT PRN (23:19)
--- NOTE | 2020-12-13 23:19 | DR.H&P ---
H&P Allergies Allergies Allergy/AdvReac Type Severity Reaction Status Date / Time naproxen [From Aleve] Allergy Verified 12/13/20 16:30 sulfamethoxazole Allergy Verified 12/13/20 16:30 [From Bactrim] trimethoprim [From Bactrim] Allergy Verified 12/13/20 16:30 Past Medical History Past Medical History: Diabetes, Dyslipidemia and Hypertension Past Surgical History Surgical History: Tonsillectomy Family History Family Medical History: Diabetes Mellitus, Heart Failure and Hypertension Social History Alcohol Use: None Medications Home Medications: naproxen [From Aleve] Allergy (Verified 12/13/20 16:30) sulfamethoxazole [From Bactrim] Allergy (Verified 12/13/20 16:30) trimethoprim [From Bactrim] Allergy (Verified 12/13/20 16:30) Labs Result Diagrams: 12/13/20 17:24 12/13/20 22:51 Labs: Laboratory WBC 12.1 X10^3/uL (3.6-10.0) H 12/13/20 17:24 RBC 4.78 X10^6/uL (4.7-6.0) 12/13/20 17:24 Hgb 13.2 g/dL (13.5-18.0) L 12/13/20 17:24 Hct 39.4 % (42.0-54.0) L 12/13/20 17:24 MCV 82.5 fL (80.0-100.0) 12/13/20 17:24 MCH 27.5 pg (27.0-34.0) 12/13/20 17:24 MCHC 33.4 g/dL (33.0-35.0) 12/13/20 17:24 RDW 15.8 % (11.6-16.5) 12/13/20 17:24 Plt Count 223 X10^3/uL (150.0-450.0) 12/13/20 17:24 MPV 9.4 fL (7.4-11.0) 12/13/20 17:24 Neut % (Auto) 72.9 % (42.0-75.0) 12/13/20 17:24 Lymph % (Auto) 17.3 % (21.0-51.0) L 12/13/20 17:24 [place] % (Auto) 7.4 % (0.0-13.0) 12/13/20 17:24 Eos % (Auto) 1.6 % (0.9-2.9) 12/13/20 17:24 Baso % (Auto) 0.8 % (0.2-1.0) 12/13/20 17:24 Neut # (Auto) 8.9 x10^3/uL (2.2-4.8) H 12/13/20 17:24 Lymph # (Auto) 2.1 X10^3/uL (1.3-2.9) 12/13/20 17:24 [place] # (Auto) 0.9 x10^3/uL (0.3-0.8) H 12/13/20 17:24 Eos # (Auto) 0.2 x10^3/uL (0.0-0.2) 12/13/20 17:24 Baso # (Auto) 0.1 X10^3/uL (0.0-0.1) 12/13/20 17:24 Absolute Nucleated RBC 0.1 /100WBC 12/13/20 17:24 Sodium 136 mmol/L (136-145) 12/13/20 17:24 Corrected Sodium 144 mmol/L (136-145) 12/13/20 17:24 Potassium 4.2 mmol/L (3.5-5.1) 12/13/20 17:24 Chloride 99 mmol/L (98-107) 12/13/20 17:24 Carbon Dioxide 31.5 mmol/L (21-32) 12/13/20 17:24 BUN 9 mg/dL (7-18) 12/13/20 17:24 Creatinine 0.88 mg/dL (0.70-1.30) 12/13/20 17:24 Est GFR (MDRD) Af Amer > 60 (>60) 12/13/20 17:24 Est GFR (MDRD) Non-Af > 60 (>60) 12/13/20 17:24 Glucose 453 mg/dL (65-99) H 12/13/20 22:51 POC Glucose (mg/dL) 406 mg/dL (65-99) H 12/13/20 22:35 Calcium 9.6 mg/dL (8.5-10.1) 12/13/20 17:24 SARS CoV-2 RNA Rapid SHAKIR Negative (NEGATIVE) 12/13/20 20:45 Review of Systems Constitutional: No Symptoms Reported Eyes: No Symptoms Reported ENT: No Symptoms Reported Respiratory: No Symptoms Reported Cardiovascular: No Symptoms Reported Gastrointestinal: No Symptoms Reported Genitourinary: No Symptoms Reported Musculoskeletal: No Symptoms Reported Skin: No Symptoms Reported Neurological: No Symptoms Reported Physical Exam Vital Signs: Temperature 98.6 F Pulse Rate [Left Brachial] 104 Pulse Rate 87 Respiratory Rate 18 Blood Pressure [Left Arm] 133/68 Blood Pressure 109/57 O2 Sat by Pulse Oximetry 98 Oriented: Normal Eyes: Normal Ear: Normal Nose: Normal Throat: Normal Respiratory: Clear Throughout Cardiovascular: Normal : Normal Auscultation: Bowel Sounds: Normal Palpation: Normal Tenderness: Normal Skin: Normal Musculoskeletal: Normal Psychiatric: Normal Mood Description: Calm and Appropriate Affect: Normal Speech Pattern: Clear and Appropriate
[2020-12-13 23:27] LABS: BILIRUBIN,URINE NEGATIVE (NEGATIVE); BLOOD/HEMOGLOBIN,URINE 2+ (NEGATIVE); GLUCOSE, URINE 4+ (NEGATIVE); KETONES,URINE NEGATIVE (NEGATIVE); LEUKOCYTE ESTERASE ,URINE NEGATIVE (NEGATIVE); NITRITES,URINE NEGATIVE (NEGATIVE); PROTEIN,URINE NEGATIVE (NEGATIVE); UROBILINOGEN,URINE NORMAL (NORMAL)
[2020-12-13 23:35] LABS: APPEARANCE,URINE CLEAR (CLEAR); BACTERIA,URINE NEGATIVE /HPF (NEGATIVE); COLOR,URINE YELLOW (YELLOW); RBC,URINE 0-2 /HPF (0-3); SQUAMOUS EPITHELIAL CELL,UR NEGATIVE /HPF (NEGATIVE)
[2020-12-13] MEDS: TYLENOL 325 MG TAB PO PRN (23:52)
[2020-12-14] MEDS ORDERED: HumuLIN R SC PRN (00:34)
--- NOTE | 2020-12-14 00:46 | DR.H&P ---
H&P History & Physical for Day of: H&P Date: 12/13/20 Chief Complaint Chief Complaint: abscesses to left medial thigh, left groin and left axilla Allergies Allergies Allergy/AdvReac Type Severity Reaction Status Date / Time naproxen [From Aleve] Allergy Verified 12/13/20 16:30 sulfamethoxazole Allergy Verified 12/13/20 16:30 [From Bactrim] trimethoprim [From Bactrim] Allergy Verified 12/13/20 16:30 History of Present Illness History of Present Illness: as above, no fever Past Medical History Past Medical History: Diabetes and Hypertension; denies Dyslipidemia Past Surgical History Surgical History: Tonsillectomy Additional Surgical History: Hidradenitis suppurativa Family History Family Medical History: Diabetes Mellitus, Heart Failure and Hypertension Social History Does patient currently use any type of tobacco product: No Have you used tobacco products in the last 12 months: No Does any household member use tobacco: No Alcohol Use: None Medications Home Medications: Amlodipine Eliquis enalapril Metformin rosuvastatin t Tresiba naproxen [From Aleve] Allergy (Verified 12/13/20 16:30) sulfamethoxazole [From Bactrim] Allergy (Verified 12/13/20 16:30) trimethoprim [From Bactrim] Allergy (Verified 12/13/20 16:30) Labs Result Diagrams: 12/13/20 17:24 12/13/20 22:51 Labs: Laboratory WBC 12.1 X10^3/uL (3.6-10.0) H 12/13/20 17:24 RBC 4.78 X10^6/uL (4.7-6.0) 12/13/20 17:24 Hgb 13.2 g/dL (13.5-18.0) L 12/13/20 17:24 Hct 39.4 % (42.0-54.0) L 12/13/20 17:24 MCV 82.5 fL (80.0-100.0) 12/13/20 17:24 MCH 27.5 pg (27.0-34.0) 12/13/20 17:24 MCHC 33.4 g/dL (33.0-35.0) 12/13/20 17:24 RDW 15.8 % (11.6-16.5) 12/13/20 17:24 Plt Count 223 X10^3/uL (150.0-450.0) 12/13/20 17:24 MPV 9.4 fL (7.4-11.0) 12/13/20 17:24 Neut % (Auto) 72.9 % (42.0-75.0) 12/13/20 17:24 Lymph % (Auto) 17.3 % (21.0-51.0) L 12/13/20 17:24 [place] % (Auto) 7.4 % (0.0-13.0) 12/13/20 17:24 Eos % (Auto) 1.6 % (0.9-2.9) 12/13/20 17:24 Baso % (Auto) 0.8 % (0.2-1.0) 12/13/20 17:24 Neut # (Auto) 8.9 x10^3/uL (2.2-4.8) H 12/13/20 17:24 Lymph # (Auto) 2.1 X10^3/uL (1.3-2.9) 12/13/20 17:24 [place] # (Auto) 0.9 x10^3/uL (0.3-0.8) H 12/13/20 17:24 Eos # (Auto) 0.2 x10^3/uL (0.0-0.2) 12/13/20 17:24 Baso # (Auto) 0.1 X10^3/uL (0.0-0.1) 12/13/20 17:24 Absolute Nucleated RBC 0.1 /100WBC 12/13/20 17:24 Sodium 136 mmol/L (136-145) 12/13/20 17:24 Corrected Sodium 144 mmol/L (136-145) 12/13/20 17:24 Potassium 4.2 mmol/L (3.5-5.1) 12/13/20 17:24 Chloride 99 mmol/L (98-107) 12/13/20 17:24 Carbon Dioxide 31.5 mmol/L (21-32) 12/13/20 17:24 BUN 9 mg/dL (7-18) 12/13/20 17:24 Creatinine 0.88 mg/dL (0.70-1.30) 12/13/20 17:24 Est GFR (MDRD) Af Amer > 60 (>60) 12/13/20 17:24 Est GFR (MDRD) Non-Af > 60 (>60) 12/13/20 17:24 Glucose 453 mg/dL (65-99) H 12/13/20 22:51 POC Glucose (mg/dL) 406 mg/dL (65-99) H 12/13/20 22:35 Calcium 9.6 mg/dL (8.5-10.1) 12/13/20 17:24 Specimen Type Clean catch urine 12/13/20 23:18 Urine Color Yellow (YELLOW) 12/13/20 23:18 Urine Appearance Clear (CLEAR) 12/13/20 23:18 Urine pH 5.0 (5.0 - 8.0) 12/13/20 23:18 Ur Specific [place] 1.015 (1.000-1.030) 12/13/20 23:18 Urine Protein Negative (NEGATIVE) 12/13/20 23:18 Urine Glucose (UA) 4+ (NEGATIVE) 12/13/20 23:18 Urine Ketones Negative (NEGATIVE) 12/13/20 23:18 Urine Occult Blood 2+ (NEGATIVE) 12/13/20 23:18 Urine Nitrite Negative (NEGATIVE) 12/13/20 23:18 Urine Bilirubin Negative (NEGATIVE) 12/13/20 23:18 Urine Urobilinogen Normal (NORMAL) 12/13/20 23:18 Ur Leukocyte Esterase Negative (NEGATIVE) 12/13/20 23:18 Urine RBC 0-2 /HPF (0-3) 12/13/20 23:18 Urine WBC None seen /HPF (0-5) 12/13/20 23:18 Ur Squamous Epith Cells Negative /HPF (NEGATIVE) 12/13/20 23:18 Urine Bacteria Negative /HPF (NEGATIVE) 12/13/20 23:18 Ur Culture Indicated? No/not indicated 12/13/20 23:18 SARS CoV-2 RNA Rapid SHAKIR Negative (NEGATIVE) 12/13/20 20:45 Review of Systems Constitutional: No Symptoms Reported; denies See HPI, Fever, Chills, Sweats, Weakness, Malaise and Other Eyes: No Symptoms Reported ENT: No Symptoms Reported Respiratory: No Symptoms Reported and Wheezing Cardiovascular: No Symptoms Reported Skin: No Symptoms Reported, See HPI, Rash, Lesions (draining abscesses to the left axilla, left groin and left medial proxinal thigh), Jaundice, Bruising, Wound, Ecchymosis and Other Neurological: No Symptoms Reported Physical Exam Vital Signs: Temperature 98.8 F Pulse Rate [Left Brachial] 94 Pulse Rate 87 Respiratory Rate 18 Blood Pressure [Left Arm] 128/58 Blood Pressure 109/57 O2 Sat by Pulse Oximetry 95 Oriented: Normal, Time and Place Ear: Normal Nose: Normal Respiratory: Clear Throughout Cardiovascular: Normal Auscultation: Bowel Sounds: Normal Palpation: Normal Skin: Normal (Abscesses to left axilla, left thigh and left groin) Musculoskeletal: Normal Psychiatric: Normal Mood Description: Calm Speech Pattern: Clear Assessment/Plan (1) Hidradenitis suppurativa: Status: Acute (2) Pulmonary embolism: Qualifiers: Acute cor pulmonale presence: without acute cor pulmonale Chronicity: acute Pulmonary embolism type: unspecified Qualified Code(s): I26.99 - Other pulmonary embolism without acute cor pulmonale Status: Acute (3) Abscess of scrotal wall: Status: Acute (4) Abscess of left thigh: Status: Acute (5) Diabetes: Qualifiers: Diabetes mellitus type: type 2 Diabetes mellitus mcfp insulin use: with termite technician use Diabetes mellitus complication status: without complication Qualified Code(s): E11.9 - Type 2 diabetes mellitus without complications; Z79.4 - manager intermediate (current) use of insulin Status: Acute (6) HTN (hypertension): Qualifiers: Hypertension type: essential hypertension Qualified Code(s): I10 - Essential (primary) hypertension Status: Acute
[2020-12-14 01:42] VITALS: BMI 35.6
[2020-12-14] MEDS ORDERED: VANCOMYCIN HCL 500 MG in D5W 100 ML IV 100 ML IV ONE (03:00)
[2020-12-14] MEDS ORDERED: VANCOMYCIN IV *PREMIX 500 mg/100 ML BAG 500 MG/100 ML PIGGYBACK IV ONE (03:11)
[2020-12-14] MEDS ORDERED: VANCOMYCIN HCL 1 G in D5W 250 ML IV 250 ML IV ONE (04:00)
[2020-12-14] MEDS ORDERED: GLUCOPHAGE ONE ×2 (06:00→16:18)
[2020-12-14] MEDS: GLUCOPHAGE PO SCH ×2 (06:02→17:30)
[2020-12-14] MEDS: HumuLIN R SUBCUT PRN ×3 (06:05→20:21)
[2020-12-14] MEDS ORDERED: NORVASC TAB 2.5 MG ONE (08:39)
[2020-12-14] MEDS ORDERED: BETADINE SOLN ONE ×2 (09:26→09:48)
[2020-12-14] MEDS ORDERED: XYLOCAINE 1 % (PLAIN) ONE ×2 (09:47→10:00)
[2020-12-14] MEDS ORDERED: NS 1000 ML 1,000 ML ONE (09:47)
[2020-12-14] MEDS ORDERED: MARCAINE/EPINEPHRINE ONE (09:57)
[2020-12-14] MEDS ORDERED: DECADRON INJ ONE ×2 (09:58→10:00)
[2020-12-14] MEDS ORDERED: OFIRMEV IV 1000 MG VIAL 1,000 MG/100 ML VIAL IV ONE (09:59)
[2020-12-14] MEDS ORDERED: FENTANYL INJ 100 mcg ONE (09:59)
[2020-12-14] MEDS ORDERED: MARCAINE 0.25% INJ ONE (10:00)
[2020-12-14] MEDS ORDERED: DIPRIVAN VIAL ONE (10:00)
[2020-12-14] MEDS ORDERED: KETALAR ONE (10:00)
[2020-12-14] MEDS ORDERED: ZOFRAN INJ 4 MG VIAL ONE (10:00)
[2020-12-14] MEDS ORDERED: VERSED ONE (10:00)
--- NOTE | 2020-12-14 11:17 | DR.OPNOTE ---
OP NOTE Disposition/Condition: Indications : Multiple abscesses to left axilla, left groin and left medial proximal thigh PROCEDURE : iNCISION AND DRAINAGE OF ABOVE ABSCESSES SURGEON Ovidio Cabral M.D. Anesthesia: MAC/Local Blood Loss 50 cc Complications None PROCEDURE : Patient taken to OR and placed in supine position and given IV sed ation. All areas prepped and draped in sterile fashion and time out for the procedure carried out . All areas of proposed incisions injected with 0.5 % Marcaine with epinephrine . All abscesses drained with a # 15 knife with the corresponding wound measurements - left axilla 3x2x2 cm -left groin 4x3x2 cm - left medial proximal [id number] cm All bleeding stopped with electrocautery and each wound packed with 4x4 gauze and covered with clean dressing Patient taken to PACU without problem.
[2020-12-14] MEDS: NORVASC TAB 2.5 MG PO SCH (11:40)
[2020-12-14] MEDS: CRESTOR TAB 10 MG PO SCH (11:41)
[2020-12-14] MEDS: VASOTEC TAB 5 MG PO SCH ×2 (11:41→20:20)
[2020-12-14] MEDS: PATIENT'S HOME MEDICATION (Insulin Degludec [Tresiba Flextouch U-100] 100 unit/mL (3 mL) I SUBCUT SCH (11:41)
[2020-12-14] MEDS: VANCOMYCIN IV *PREMIX 1 G/200 ML BAG 1 G/200 ML PIGGYBACK IV SCH ×2 (15:00→21:12)
[2020-12-14] MEDS ORDERED: VANCOMYCIN HCL 500 MG, VANCOMYCIN HCL 1 G in D5W 250 ML IV 250 ML IV SCH (15:00)
[2020-12-14] MEDS: NS 1000 ML 1,000 ML IV SCH ×2 (18:49→21:52)
[2020-12-14] MEDS: SNACK - Diabetic Appropriate PO SCH (20:00)
[2020-12-15 04:17] LABS: BASOPHILS # (AUTO) 0.1 X10^3/uL (0.0-0.1); EOSINOPHILS % (AUTO) 0.1 % (0.9-2.9); HEMATOCRIT 38.3 % (42.0-54.0); HEMOGLOBIN 12.6 g/dL (13.5-18.0); LYMPHOCYTES # (AUTO) 1.7 X10^3/uL (1.3-2.9); LYMPHOCYTES % (AUTO) 12.8 % (21.0-51.0); MEAN CORPUSCULAR HEMOGLOBIN 27.1 pg (27.0-34.0); MEAN CORPUSCULAR HGB CONC 32.9 g/dL (33.0-35.0); MEAN CORPUSCULAR VOLUME 82.3 fL (80.0-100.0); MONOCYTES # (AUTO) 0.5 x10^3/uL (0.3-0.8); MONOCYTES % (AUTO) 3.9 % (0.0-13.0); NEUTROPHILS # (AUTO) 11.1 x10^3/uL (2.2-4.8); NEUTROPHILS % (AUTO) 82.2 % (42.0-75.0); PLATELET COUNT 252 X10^3/uL (150.0-450.0); RED BLOOD COUNT 4.66 X10^6/uL (4.7-6.0); RED CELL DISTRIBUTION WIDTH 15.5 % (11.6-16.5); WHITE BLOOD COUNT 13.6 X10^3/uL (3.6-10.0)
[2020-12-15] MEDS ORDERED: GLUCOPHAGE ONE ×2 (05:06→17:19)
[2020-12-15] MEDS: VANCOMYCIN IV *PREMIX 1 G/200 ML BAG 1 G/200 ML PIGGYBACK IV SCH ×3 (05:16→21:23)
[2020-12-15] MEDS: HumuLIN R SUBCUT PRN ×4 (06:03→20:50)
[2020-12-15] MEDS: GLUCOPHAGE PO SCH ×2 (06:04→17:24)
[2020-12-15] MEDS ORDERED: NORVASC TAB 2.5 MG ONE (08:13)
[2020-12-15] MEDS: VASOTEC TAB 5 MG PO SCH ×2 (08:45→20:36)
[2020-12-15] MEDS: NORVASC TAB 2.5 MG PO SCH (08:47)
[2020-12-15] MEDS: CRESTOR TAB 10 MG PO SCH (08:49)
[2020-12-15] MEDS: PATIENT'S HOME MEDICATION (Insulin Degludec [Tresiba Flextouch U-100] 100 unit/mL (3 mL) I SUBCUT SCH (10:53)
[2020-12-15] MEDS: NS 1000 ML 1,000 ML IV SCH ×3 (11:56→15:08)
[2020-12-15] MEDS ORDERED: PHARMACY COMMENT IV NR (13:30)
[2020-12-15 13:59] LABS: CREATININE 0.95 mg/dL (0.70-1.30); VANCOMYCIN,TROUGH 6.8 ug/mL (15-20)
[2020-12-15] MEDS ORDERED: NS IRRIGATION* 500 ML IR ONE (14:03)
--- NOTE | 2020-12-15 15:14 | PCM.PROG ---
Progress Note Progress Note for Day of Date of Exam: 12/15/20 Subjective Subjective: Patient feels markedly better after I And D of multiple abscesses secondary to hidradenitis and diabetes . Hgb A 1 c is elevated at 10.5. Past Medical Family Social History Allergies: Allergies naproxen [From Aleve] Allergy (Verified 12/13/20 16:30) sulfamethoxazole [From Bactrim] Allergy (Verified 12/13/20 16:30) trimethoprim [From Bactrim] Allergy (Verified 12/13/20 16:30) Vital Signs and I&O's Vital Signs: Temperature 97.7 F Pulse Rate [Left Brachial] 63 Pulse Rate 87 Respiratory Rate 20 Blood Pressure [Left Arm] 108/53 Blood Pressure 109/57 O2 Sat by Pulse Oximetry 97 Intake and Output: Intake & Output 12/12/20 12/13/20 12/14/20 12/15/20 23:59 23:59 23:59 23:59 Intake Total 249 / 249 4646 / 4646 1429 / 1429 Output Total 995 / 995 Balance 249 / 249 3651 / 3651 1429 / 1429 Physical Exam Oriented: Normal, Time and Place Eyes: Normal; negative Diplopia Ear: Normal Nose: Normal Throat: Normal; negative Tonsillar Hypertrophy, Red, Exudate, Dry and Other Cardiovascular: Normal : Normal Auscultation: Bowel Sounds: Normal Tenderness: Normal Skin: Normal (Abscesses to left axilla, left thigh and left groin) and Wound (Wounds to the left groin, left axilla and left medial thigh all improved .) Musculoskeletal: Normal Psychiatric: Normal Mood Description: Calm Affect: Normal Speech Pattern: Clear and Appropriate Laboratory and Diagnostics Result Diagrams: 12/15/20 04:05 12/15/20 12:38 Labs: 12/13/20 17:33 Blood Blood Culture - Preliminary 12/13/20 17:24 Blood Blood Culture - Preliminary 12/14/20 11:23 Axilla - Left Wound Gram Stain - Final 12/14/20 11:23 Axilla - Left Wound Culture - Preliminary Laboratory WBC 13.6 X10^3/uL (3.6-10.0) H 12/15/20 04:05 RBC 4.66 X10^6/uL (4.7-6.0) L 12/15/20 04:05 Hgb 12.6 g/dL (13.5-18.0) L 12/15/20 04:05 Hct 38.3 % (42.0-54.0) L 12/15/20 04:05 MCV 82.3 fL (80.0-100.0) 12/15/20 04:05 MCH 27.1 pg (27.0-34.0) 12/15/20 04:05 MCHC 32.9 g/dL (33.0-35.0) L 12/15/20 04:05 RDW 15.5 % (11.6-16.5) 12/15/20 04:05 Plt Count 252 X10^3/uL (150.0-450.0) 12/15/20 04:05 MPV 9.0 fL (7.4-11.0) 12/15/20 04:05 Neut % (Auto) 82.2 % (42.0-75.0) H 12/15/20 04:05 Lymph % (Auto) 12.8 % (21.0-51.0) L 12/15/20 04:05 [place] % (Auto) 3.9 % (0.0-13.0) 12/15/20 04:05 Eos % (Auto) 0.1 % (0.9-2.9) L 12/15/20 04:05 Baso % (Auto) 1.0 % (0.2-1.0) 12/15/20 04:05 Neut # (Auto) 11.1 x10^3/uL (2.2-4.8) H 12/15/20 04:05 Lymph # (Auto) 1.7 X10^3/uL (1.3-2.9) 12/15/20 04:05 [place] # (Auto) 0.5 x10^3/uL (0.3-0.8) 12/15/20 04:05 Eos # (Auto) 0.0 x10^3/uL (0.0-0.2) 12/15/20 04:05 Baso # (Auto) 0.1 X10^3/uL (0.0-0.1) 12/15/20 04:05 Absolute Nucleated RBC 0.0 /100WBC 12/15/20 04:05 Sodium 136 mmol/L (136-145) 12/13/20 17:24 Corrected Sodium 144 mmol/L (136-145) 12/13/20 17:24 Potassium 4.2 mmol/L (3.5-5.1) 12/13/20 17:24 Chloride 99 mmol/L (98-107) 12/13/20 17:24 Carbon Dioxide 31.5 mmol/L (21-32) 12/13/20 17:24 BUN 9 mg/dL (7-18) 12/13/20 17:24 Creatinine 0.95 mg/dL (0.70-1.30) 12/15/20 12:38 Est GFR (MDRD) Af Amer > 60 (>60) 12/13/20 17:24 Est GFR (MDRD) Non-Af > 60 (>60) 12/13/20 17:24 Glucose 453 mg/dL (65-99) H 12/13/20 22:51 POC Glucose (mg/dL) 302 mg/dL (65-99) H 12/15/20 11:29 Hemoglobin A1c 10.9 % 12/14/20 11:52 Calcium 9.6 mg/dL (8.5-10.1) 12/13/20 17:24 Specimen Type Clean catch urine 12/13/20 23:18 Urine Color Yellow (YELLOW) 12/13/20 23:18 Urine Appearance Clear (CLEAR) 12/13/20 23:18 Urine pH 5.0 (5.0 - 8.0) 12/13/20 23:18 Ur Specific [place] 1.015 (1.000-1.030) 12/13/20 23:18 Urine Protein Negative (NEGATIVE) 12/13/20 23:18 Urine Glucose (UA) 4+ (NEGATIVE) 12/13/20 23:18 Urine Ketones Negative (NEGATIVE) 12/13/20 23:18 Urine Occult Blood 2+ (NEGATIVE) 12/13/20 23:18 Urine Nitrite Negative (NEGATIVE) 12/13/20 23:18 Urine Bilirubin Negative (NEGATIVE) 12/13/20 23:18 Urine Urobilinogen Normal (NORMAL) 12/13/20 23:18 Ur Leukocyte Esterase Negative (NEGATIVE) 12/13/20 23:18 Urine RBC 0-2 /HPF (0-3) 12/13/20 23:18 Urine WBC None seen /HPF (0-5) 12/13/20 23:18 Ur Squamous Epith Cells Negative /HPF (NEGATIVE) 12/13/20 23:18 Urine Bacteria Negative /HPF (NEGATIVE) 12/13/20 23:18 Ur Culture Indicated? No/not indicated 12/13/20 23:18 Vancomycin Trough 6.8 ug/mL (15-20) L 12/15/20 12:38 SARS CoV-2 RNA Rapid SHAKIR Negative (NEGATIVE) 12/13/20 20:45 Plan (1) Hidradenitis suppurativa: Status: Acute Plan: Continue IV Vancomycin. Cultures still pending . 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
[2020-12-15] MEDS: SNACK - Diabetic Appropriate PO SCH (21:17)
[2020-12-16] MEDS: NS 1000 ML 1,000 ML IV SCH ×4 (02:40→21:20)
[2020-12-16] MEDS ORDERED: GLUCOPHAGE ONE ×2 (05:38→16:47)
[2020-12-16] MEDS: VANCOMYCIN IV *PREMIX 1 G/200 ML BAG 1 G/200 ML PIGGYBACK IV SCH ×3 (05:45→21:21)
[2020-12-16] MEDS: GLUCOPHAGE PO SCH ×2 (06:19→16:55)
[2020-12-16] MEDS: HumuLIN R SUBCUT PRN ×4 (06:20→21:21)
[2020-12-16] MEDS: VASOTEC TAB 5 MG PO SCH ×2 (09:00→21:18)
[2020-12-16] MEDS: CRESTOR TAB 10 MG PO SCH (09:01)
[2020-12-16] MEDS: NORVASC TAB 10 MG PO SCH (09:01)
[2020-12-16] MEDS: PATIENT'S HOME MEDICATION (Insulin Degludec [Tresiba Flextouch U-100] 100 unit/mL (3 mL) I SUBCUT SCH (09:03)
--- NOTE | 2020-12-16 10:30 | PCM.PROG ---
Progress Note Subjective Subjective: Patient feels markedly better after I And D of multiple abscesses secondary to hidradenitis and diabetes . Hgb A 1 c is elevated at 10.5. Past Medical Family Social History Allergies: Allergies naproxen [From Aleve] Allergy (Verified 12/13/20 16:30) sulfamethoxazole [From Bactrim] Allergy (Verified 12/13/20 16:30) trimethoprim [From Bactrim] Allergy (Verified 12/13/20 16:30) Vital Signs and I&O's Vital Signs: Temperature 97.9 F Pulse Rate [Left Brachial] 63 Pulse Rate 87 Respiratory Rate 18 Blood Pressure [Left Arm] 136/80 Blood Pressure 109/57 O2 Sat by Pulse Oximetry 97 Intake and Output: Intake & Output 12/13/20 12/14/20 12/15/20 12/16/20 23:59 23:59 23:59 23:59 Intake Total 249 / 249 4646 / 4646 3970 / 3970 852 / 852 Output Total 995 / 995 Balance 249 / 249 3651 / 3651 3970 / 3970 852 / 852 Physical Exam Oriented: Normal, Time and Place Eyes: Normal; negative Diplopia Ear: Normal Nose: Normal Throat: Normal; negative Tonsillar Hypertrophy, Red, Exudate, Dry and Other Cardiovascular: Normal : Normal Auscultation: Bowel Sounds: Normal Tenderness: Normal Skin: Normal (Abscesses to left axilla, left thigh and left groin) and Wound (Wounds to the left groin, left axilla and left medial thigh all improved .) Musculoskeletal: Normal Psychiatric: Normal Mood Description: Calm Affect: Normal Speech Pattern: Clear and Appropriate Laboratory and Diagnostics Result Diagrams: 12/15/20 04:05 12/15/20 12:38 Labs: 12/13/20 17:33 Blood Blood Culture - Preliminary 12/13/20 17:24 Blood Blood Culture - Preliminary 12/14/20 11:23 Axilla - Left Wound Gram Stain - Final 12/14/20 11:23 Axilla - Left Wound Culture - Preliminary Laboratory WBC 13.6 X10^3/uL (3.6-10.0) H 12/15/20 04:05 RBC 4.66 X10^6/uL (4.7-6.0) L 12/15/20 04:05 Hgb 12.6 g/dL (13.5-18.0) L 12/15/20 04:05 Hct 38.3 % (42.0-54.0) L 12/15/20 04:05 MCV 82.3 fL (80.0-100.0) 12/15/20 04:05 MCH 27.1 pg (27.0-34.0) 12/15/20 04:05 MCHC 32.9 g/dL (33.0-35.0) L 12/15/20 04:05 RDW 15.5 % (11.6-16.5) 12/15/20 04:05 Plt Count 252 X10^3/uL (150.0-450.0) 12/15/20 04:05 MPV 9.0 fL (7.4-11.0) 12/15/20 04:05 Neut % (Auto) 82.2 % (42.0-75.0) H 12/15/20 04:05 Lymph % (Auto) 12.8 % (21.0-51.0) L 12/15/20 04:05 [place] % (Auto) 3.9 % (0.0-13.0) 12/15/20 04:05 Eos % (Auto) 0.1 % (0.9-2.9) L 12/15/20 04:05 Baso % (Auto) 1.0 % (0.2-1.0) 12/15/20 04:05 Neut # (Auto) 11.1 x10^3/uL (2.2-4.8) H 12/15/20 04:05 Lymph # (Auto) 1.7 X10^3/uL (1.3-2.9) 12/15/20 04:05 [place] # (Auto) 0.5 x10^3/uL (0.3-0.8) 12/15/20 04:05 Eos # (Auto) 0.0 x10^3/uL (0.0-0.2) 12/15/20 04:05 Baso # (Auto) 0.1 X10^3/uL (0.0-0.1) 12/15/20 04:05 Absolute Nucleated RBC 0.0 /100WBC 12/15/20 04:05 Sodium 136 mmol/L (136-145) 12/13/20 17:24 Corrected Sodium 144 mmol/L (136-145) 12/13/20 17:24 Potassium 4.2 mmol/L (3.5-5.1) 12/13/20 17:24 Chloride 99 mmol/L (98-107) 12/13/20 17:24 Carbon Dioxide 31.5 mmol/L (21-32) 12/13/20 17:24 BUN 9 mg/dL (7-18) 12/13/20 17:24 Creatinine 0.95 mg/dL (0.70-1.30) 12/15/20 12:38 Est GFR (MDRD) Af Amer > 60 (>60) 12/13/20 17:24 Est GFR (MDRD) Non-Af > 60 (>60) 12/13/20 17:24 Glucose 453 mg/dL (65-99) H 12/13/20 22:51 POC Glucose (mg/dL) 222 mg/dL (65-99) H 12/16/20 05:23 Hemoglobin A1c 10.9 % 12/14/20 11:52 Calcium 9.6 mg/dL (8.5-10.1) 12/13/20 17:24 Specimen Type Clean catch urine 12/13/20 23:18 Urine Color Yellow (YELLOW) 12/13/20 23:18 Urine Appearance Clear (CLEAR) 12/13/20 23:18 Urine pH 5.0 (5.0 - 8.0) 12/13/20 23:18 Ur Specific [place] 1.015 (1.000-1.030) 12/13/20 23:18 Urine Protein Negative (NEGATIVE) 12/13/20 23:18 Urine Glucose (UA) 4+ (NEGATIVE) 12/13/20 23:18 Urine Ketones Negative (NEGATIVE) 12/13/20 23:18 Urine Occult Blood 2+ (NEGATIVE) 12/13/20 23:18 Urine Nitrite Negative (NEGATIVE) 12/13/20 23:18 Urine Bilirubin Negative (NEGATIVE) 12/13/20 23:18 Urine Urobilinogen Normal (NORMAL) 12/13/20 23:18 Ur Leukocyte Esterase Negative (NEGATIVE) 12/13/20 23:18 Urine RBC 0-2 /HPF (0-3) 12/13/20 23:18 Urine WBC None seen /HPF (0-5) 12/13/20 23:18 Ur Squamous Epith Cells Negative /HPF (NEGATIVE) 12/13/20 23:18 Urine Bacteria Negative /HPF (NEGATIVE) 12/13/20 23:18 Ur Culture Indicated? No/not indicated 12/13/20 23:18 Vancomycin Trough 6.8 ug/mL (15-20) L 12/15/20 12:38 SARS CoV-2 RNA Rapid SHAKIR Negative (NEGATIVE) 12/13/20 20:45 Plan (1) Hidradenitis suppurativa: Status: Acute Plan: Continue IV Vancomycin. Cultures still pending . 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
--- NOTE | 2020-12-16 11:13 | PCM.PROG ---
Progress Note Subjective Subjective: Patient continues to improve and feel better. Past Medical Family Social History Allergies: Allergies naproxen [From Aleve] Allergy (Verified 12/13/20 16:30) sulfamethoxazole [From Bactrim] Allergy (Verified 12/13/20 16:30) trimethoprim [From Bactrim] Allergy (Verified 12/13/20 16:30) Vital Signs and I&O's Vital Signs: Temperature 97.9 F Pulse Rate [Left Brachial] 63 Pulse Rate 87 Respiratory Rate 18 Blood Pressure [Left Arm] 136/80 Blood Pressure 109/57 O2 Sat by Pulse Oximetry 97 Intake and Output: Intake & Output 12/13/20 12/14/20 12/15/20 12/16/20 23:59 23:59 23:59 23:59 Intake Total 249 / 249 4646 / 4646 3970 / 3970 852 / 852 Output Total 995 / 995 Balance 249 / 249 3651 / 3651 3970 / 3970 852 / 852 Physical Exam Oriented: Normal, Time and Place Eyes: Normal; negative Diplopia Ear: Normal Nose: Normal Throat: Normal; negative Tonsillar Hypertrophy, Red, Exudate, Dry and Other Cardiovascular: Normal : Normal Auscultation: Bowel Sounds: Normal Tenderness: Normal Skin: Normal (Abscesses to left axilla, left thigh and left groin) and Wound (All wounds continue to improve and were re-packed by me today. All cultures are growing Proteus Mirabilus whichnis sensitive to Cipro,) Musculoskeletal: Normal Psychiatric: Normal Mood Description: Calm Affect: Normal Speech Pattern: Clear and Appropriate Laboratory and Diagnostics Result Diagrams: 12/15/20 04:05 12/15/20 12:38 Labs: 12/14/20 11:23 Axilla - Left Wound Gram Stain - Final 12/14/20 11:23 Axilla - Left Wound Culture - Preliminary 12/13/20 17:33 Blood Blood Culture - Preliminary 12/13/20 17:24 Blood Blood Culture - Preliminary Laboratory WBC 13.6 X10^3/uL (3.6-10.0) H 12/15/20 04:05 RBC 4.66 X10^6/uL (4.7-6.0) L 12/15/20 04:05 Hgb 12.6 g/dL (13.5-18.0) L 12/15/20 04:05 Hct 38.3 % (42.0-54.0) L 12/15/20 04:05 MCV 82.3 fL (80.0-100.0) 12/15/20 04:05 MCH 27.1 pg (27.0-34.0) 12/15/20 04:05 MCHC 32.9 g/dL (33.0-35.0) L 12/15/20 04:05 RDW 15.5 % (11.6-16.5) 12/15/20 04:05 Plt Count 252 X10^3/uL (150.0-450.0) 12/15/20 04:05 MPV 9.0 fL (7.4-11.0) 12/15/20 04:05 Neut % (Auto) 82.2 % (42.0-75.0) H 12/15/20 04:05 Lymph % (Auto) 12.8 % (21.0-51.0) L 12/15/20 04:05 [place] % (Auto) 3.9 % (0.0-13.0) 12/15/20 04:05 Eos % (Auto) 0.1 % (0.9-2.9) L 12/15/20 04:05 Baso % (Auto) 1.0 % (0.2-1.0) 12/15/20 04:05 Neut # (Auto) 11.1 x10^3/uL (2.2-4.8) H 12/15/20 04:05 Lymph # (Auto) 1.7 X10^3/uL (1.3-2.9) 12/15/20 04:05 [place] # (Auto) 0.5 x10^3/uL (0.3-0.8) 12/15/20 04:05 Eos # (Auto) 0.0 x10^3/uL (0.0-0.2) 12/15/20 04:05 Baso # (Auto) 0.1 X10^3/uL (0.0-0.1) 12/15/20 04:05 Absolute Nucleated RBC 0.0 /100WBC 12/15/20 04:05 Sodium 136 mmol/L (136-145) 12/13/20 17:24 Corrected Sodium 144 mmol/L (136-145) 12/13/20 17:24 Potassium 4.2 mmol/L (3.5-5.1) 12/13/20 17:24 Chloride 99 mmol/L (98-107) 12/13/20 17:24 Carbon Dioxide 31.5 mmol/L (21-32) 12/13/20 17:24 BUN 9 mg/dL (7-18) 12/13/20 17:24 Creatinine 0.95 mg/dL (0.70-1.30) 12/15/20 12:38 Est GFR (MDRD) Af Amer > 60 (>60) 12/13/20 17:24 Est GFR (MDRD) Non-Af > 60 (>60) 12/13/20 17:24 Glucose 453 mg/dL (65-99) H 12/13/20 22:51 POC Glucose (mg/dL) 222 mg/dL (65-99) H 12/16/20 05:23 Hemoglobin A1c 10.9 % 12/14/20 11:52 Calcium 9.6 mg/dL (8.5-10.1) 12/13/20 17:24 Specimen Type Clean catch urine 12/13/20 23:18 Urine Color Yellow (YELLOW) 12/13/20 23:18 Urine Appearance Clear (CLEAR) 12/13/20 23:18 Urine pH 5.0 (5.0 - 8.0) 12/13/20 23:18 Ur Specific [place] 1.015 (1.000-1.030) 12/13/20 23:18 Urine Protein Negative (NEGATIVE) 12/13/20 23:18 Urine Glucose (UA) 4+ (NEGATIVE) 12/13/20 23:18 Urine Ketones Negative (NEGATIVE) 12/13/20 23:18 Urine Occult Blood 2+ (NEGATIVE) 12/13/20 23:18 Urine Nitrite Negative (NEGATIVE) 12/13/20 23:18 Urine Bilirubin Negative (NEGATIVE) 12/13/20 23:18 Urine Urobilinogen Normal (NORMAL) 12/13/20 23:18 Ur Leukocyte Esterase Negative (NEGATIVE) 12/13/20 23:18 Urine RBC 0-2 /HPF (0-3) 12/13/20 23:18 Urine WBC None seen /HPF (0-5) 04/09/21 23:18 Ur Squamous Epith Cells Negative /HPF (NEGATIVE) 12/13/20 23:18 Urine Bacteria Negative /HPF (NEGATIVE) 12/13/20 23:18 Ur Culture Indicated? No/not indicated 12/13/20 23:18 Vancomycin Trough 6.8 ug/mL (15-20) L 12/15/20 12:38 SARS CoV-2 RNA Rapid SHAKIR Negative (NEGATIVE) 12/13/20 20:45 Plan (1) Hidradenitis suppurativa: Status: Acute Plan: Will d/c Vancomycin and change to PO Cipro and will instruct family on how to pack wounds and plan discharge tomorrow. Will need f/u with his PCP to get his blood sugar under better control. 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
[2020-12-16] MEDS: TYLENOL 325 MG TAB PO PRN (11:36)
[2020-12-16] MEDS ORDERED: LEVEMIR SC NR (16:00)
[2020-12-16] MEDS: SNACK - Diabetic Appropriate PO SCH (21:21)
[2020-12-17] MEDS: VANCOMYCIN IV *PREMIX 1 G/200 ML BAG 1 G/200 ML PIGGYBACK IV SCH (05:16)
[2020-12-17] MEDS: HumuLIN R SUBCUT PRN (06:22)
[2020-12-17] MEDS: GLUCOPHAGE PO SCH (06:59)
[2020-12-17] MEDS ORDERED: GLUCOPHAGE ONE (07:00)
[2020-12-17 07:48] VITALS: BP 128/62
[2020-12-17] MEDS: NORVASC TAB 10 MG PO SCH (08:51)
[2020-12-17] MEDS: VASOTEC TAB 5 MG PO SCH (08:51)
[2020-12-17] MEDS: CRESTOR TAB 10 MG PO SCH (08:51)
[2020-12-17] MEDS: TYLENOL 325 MG TAB PO PRN (09:08)
--- NOTE | 2020-12-17 09:54 | W.DIS.FURT ---
Summary of Discharge Discharge Summary of Date Date of Exam: 12/17/20 Admission Date Date of Admission: 12/13/20 Admission Diagnosis Patient Problems (Updated 12/13/20 @ 20:26 by Cliff Card) Abscess of scrotal wall (Acute) N49.2 Abscess of left thigh (Acute) L02.416 Hospital Course: Patient with diabetes admitted with hidradenitis of both axilla , both groins and medial left thigh admitted with abscesses to the left axilla , left groin and left medial proximal thigh. Placed on IV vancomycin and taken to OR the next AM and had incision and drainage of all abscesses. On admission A1c was elevated at 10.5. Packing wounds daily. Feels much better and wounds are improved . Family to pack wounds daily . He is to see his PCP to adjust his diabetic medications and get his blood sugar under better control. Will be discharged on po Levaquin 500 mg daily and Percocet 5 m po q 6 hr PRN pain. F/U Dr. Cabral 1 week. May need excision of hidradenitis of axillas and groins in the future vs biologic treatmetn whichn is new Vital Signs: Vital Signs (72 hours) 12/14/20 10:50 12/14/20 11:05 12/14/20 11:20 Temperature 98 F Pulse Rate [Left Brachial] 84 73 78 Respiratory Rate 18 18 18 Blood Pressure [Left Arm] 140/75 119/62 108/58 O2 Sat by Pulse Oximetry 96 93 L 90 L 12/14/20 11:35 12/14/20 11:50 12/14/20 12:50 Temperature 97.9 F Pulse Rate [Left Brachial] 81 71 82 Respiratory Rate 18 18 18 Blood Pressure [Left Arm] 119/60 115/63 119/76 O2 Sat by Pulse Oximetry 93 L 94 L 95 12/14/20 13:50 12/14/20 14:50 12/14/20 15:50 Temperature 98.9 F 98.3 F Pulse Rate [Left Brachial] 83 84 81 Respiratory Rate 18 18 20 Blood Pressure [Left Arm] 120/57 120/59 120/57 O2 Sat by Pulse Oximetry 93 L 92 L 94 L 12/14/20 16:00 12/14/20 20:00 12/15/20 00:00 Temperature 98.3 F 97.9 F 98.2 F Pulse Rate [Left Brachial] 81 85 70 Respiratory Rate 20 18 16 Blood Pressure [Left Arm] 120/57 115/58 100/51 O2 Sat by Pulse Oximetry 94 L 94 L 93 L 12/15/20 04:00 12/15/20 08:00 12/15/20 12:00 Temperature 98.0 F 97.7 F Pulse Rate [Left Brachial] 64 61 63 Respiratory Rate 16 20 20 Blood Pressure [Left Arm] 113/55 107/59 108/53 O2 Sat by Pulse Oximetry 96 97 97 12/15/20 16:00 12/15/20 20:00 12/16/20 00:00 Temperature 98.2 F 97.7 F 98.1 F Pulse Rate [Left Brachial] 64 64 61 Respiratory Rate 20 16 18 Blood Pressure [Left Arm] 94/51 112/58 105/54 O2 Sat by Pulse Oximetry 96 96 96 12/16/20 04:00 12/16/20 08:00 12/16/20 11:36 Temperature 98.0 F 97.9 F Pulse Rate [Left Brachial] 66 63 Respiratory Rate 18 18 18 Blood Pressure [Left Arm] 103/59 136/80 O2 Sat by Pulse Oximetry 97 97 12/16/20 12:00 12/16/20 12:36 12/16/20 16:00 Temperature 98.1 F 97.6 F Pulse Rate [Left Brachial] 70 69 Respiratory Rate 20 20 20 Blood Pressure [Left Arm] 137/71 109/59 O2 Sat by Pulse Oximetry 96 96 12/16/20 20:00 12/17/20 00:00 12/17/20 04:00 Temperature 98.3 F 97.8 F 98.3 F Pulse Rate [Left Brachial] 72 78 82 Respiratory Rate 19 20 18 Blood Pressure [Left Arm] 123/66 131/62 106/53 O2 Sat by Pulse Oximetry 96 94 L 93 L 12/17/20 07:47 12/17/20 09:08 Temperature 97.6 F Pulse Rate [Left Brachial] 77 Respiratory Rate 18 20 Blood Pressure [Left Arm] 128/62 O2 Sat by Pulse Oximetry 96 Labs: Laboratory Last Values WBC 13.6 X10^3/uL (3.6-10.0) H 12/15/20 04:05 RBC 4.66 X10^6/uL (4.7-6.0) L 12/15/20 04:05 Hgb 12.6 g/dL (13.5-18.0) L 12/15/20 04:05 Hct 38.3 % (42.0-54.0) L 12/15/20 04:05 MCV 82.3 fL (80.0-100.0) 12/15/20 04:05 MCH 27.1 pg (27.0-34.0) 12/15/20 04:05 MCHC 32.9 g/dL (33.0-35.0) L 12/15/20 04:05 RDW 15.5 % (11.6-16.5) 12/15/20 04:05 Plt Count 252 X10^3/uL (150.0-450.0) 12/15/20 04:05 MPV 9.0 fL (7.4-11.0) 12/15/20 04:05 Neut % (Auto) 82.2 % (42.0-75.0) H 12/15/20 04:05 Lymph % (Auto) 12.8 % (21.0-51.0) L 12/15/20 04:05 [place] % (Auto) 3.9 % (0.0-13.0) 12/15/20 04:05 Eos % (Auto) 0.1 % (0.9-2.9) L 12/15/20 04:05 Baso % (Auto) 1.0 % (0.2-1.0) 12/15/20 04:05 Neut # (Auto) 11.1 x10^3/uL (2.2-4.8) H 12/15/20 04:05 Lymph # (Auto) 1.7 X10^3/uL (1.3-2.9) 12/15/20 04:05 [place] # (Auto) 0.5 x10^3/uL (0.3-0.8) 12/15/20 04:05 Eos # (Auto) 0.0 x10^3/uL (0.0-0.2) 12/15/20 04:05 Baso # (Auto) 0.1 X10^3/uL (0.0-0.1) 12/15/20 04:05 Absolute Nucleated RBC 0.0 /100WBC 12/15/20 04:05 Sodium 136 mmol/L (136-145) 12/13/20 17:24 Corrected Sodium 144 mmol/L (136-145) 12/13/20 17:24 Potassium 4.2 mmol/L (3.5-5.1) 12/13/20 17:24 Chloride 99 mmol/L (98-107) 12/13/20 17:24 Carbon Dioxide 31.5 mmol/L (21-32) 12/13/20 17:24 BUN 9 mg/dL (7-18) 12/13/20 17:24 Creatinine 0.95 mg/dL (0.70-1.30) 12/15/20 12:38 Est GFR (MDRD) Af Amer > 60 (>60) 12/13/20 17:24 Est GFR (MDRD) Non-Af > 60 (>60) 12/13/20 17:24 Glucose 453 mg/dL (65-99) H 12/13/20 22:51 POC Glucose (mg/dL) 168 mg/dL (65-99) H 12/17/20 06:18 Hemoglobin A1c 10.9 % 12/14/20 11:52 Calcium 9.6 mg/dL (8.5-10.1) 12/13/20 17:24 Specimen Type Clean catch urine 12/13/20 23:18 Urine Color Yellow (YELLOW) 12/13/20 23:18 Urine Appearance Clear (CLEAR) 12/13/20 23:18 Urine pH 5.0 (5.0 - 8.0) 12/13/20 23:18 Ur Specific [place] 1.015 (1.000-1.030) 12/13/20 23:18 Urine Protein Negative (NEGATIVE) 12/13/20 23:18 Urine Glucose (UA) 4+ (NEGATIVE) 12/13/20 23:18 Urine Ketones Negative (NEGATIVE) 12/13/20 23:18 Urine Occult Blood 2+ (NEGATIVE) 12/13/20 23:18 Urine Nitrite Negative (NEGATIVE) 12/13/20 23:18 Urine Bilirubin Negative (NEGATIVE) 12/13/20 23:18 Urine Urobilinogen Normal (NORMAL) 12/13/20 23:18 Ur Leukocyte Esterase Negative (NEGATIVE) 12/13/20 23:18 Urine RBC 0-2 /HPF (0-3) 12/13/20 23:18 Urine WBC None seen /HPF (0-5) 12/13/20 23:18 Ur Squamous Epith Cells Negative /HPF (NEGATIVE) 12/13/20 23:18 Urine Bacteria Negative /HPF (NEGATIVE) 12/13/20 23:18 Ur Culture Indicated? No/not indicated 12/13/20 23:18 Vancomycin Trough 6.8 ug/mL (15-20) L 12/15/20 12:38 Random Vancomycin 9.5 ug/mL 12/16/20 11:55 SARS CoV-2 RNA Rapid SHAKIR Negative (NEGATIVE) 12/13/20 20:45 Reason For Visit: ABSCESS TO SCROTUM,ABD,AXILLARY Discharge Date Discharge Date: 12/17/20 Discharge Diagnosis All Active Problems (Updated 12/13/20 @ 20:26 by Cliff Card) Pulmonary embolism (Acute) Hyperglycemia (Acute) COVID-19 virus infection (Acute) Abscess of scrotal wall (Acute) Abscess of left thigh (Acute) Bronchitis (Acute) Diabetes (Acute) HTN (hypertension) (Acute) Hypokalemia (Acute) Hidradenitis suppurativa (Acute) Pulmonary embolism (Acute) COVID-19 virus infection (Acute) Upper respiratory infection (Acute) Plan of Treatment: Continue with present treatment and follow up plan. Pt is to keep follow up appointment as instructed and take medications as ordered. Family to Discharge Medications Discharge Medications: naproxen [From Aleve] Allergy (Verified 12/13/20 16:30) sulfamethoxazole [From Bactrim] Allergy (Verified 12/13/20 16:30) trimethoprim [From Bactrim] Allergy (Verified 12/13/20 16:30) CONTINUE taking the following medications Tocandace Porter U-300 Insulin 30 unit SUBCUT DAILY 12/14/20 [History] amlodipine 10 mg PO DAILY 12/14/20 [History] New Prescriptions levofloxacin 500 mg PO Q24H #7 tab NS 12/17/20 [Rx] oxycodone-acetaminophen [Percocet] 1 tab PO Q4H PRN #20 tab MDD 4 12/17/20 [Rx] Follow up and Referral Follow Up: 1 Week Discharge Disposition Assessment: See Hospital course as above. Discharge Disposition: HOme Discharge Condition: Good Discharge Plan Discharge Plan Hospital Course: Patient with diabetes admitted with hidradenitis of both axilla , both groins and medial left thigh admitted with abscesses to the left axilla , left groin and left medial proximal thigh. Placed on IV vancomycin and taken to OR the next AM and had incision and drainage of all abscesses. On admission A1c was elevated at 10.5. Packing wounds daily. Feels much better and wounds are improved . Family to pack wounds daily . He is to see his PCP to adjust his diabetic medications and get his blood sugar under better control. Will be discharged on po Levaquin 500 mg daily and Percocet 5 m po q 6 hr PRN pain. F/U Dr. Cabral 1 week. May need excision of hidradenitis of axillas and groins in the future vs biologic treatmetn whichn is new Patient Disposition: HOME, SELF-CARE Condition: Stable Health Concerns: Post Hospitalization: new medications and changes needed to prevent readmission or further decline. Pt educated and given instructions on all concerns. Care Plan Goals: As above. Plan of Treatment: Continue with present treatment and follow up plan. Pt is to keep follow up appointment as instructed and take medications as ordered. Family to Assessment: See Hospital course as above. Prescriptions: New oxycodone-acetaminophen [Percocet] 5-325 mg Tablet 1 tab PO Q4H MDD 4 PRNQty: 20 RF: 0 levofloxacin 500 mg tablet 500 mg PO Q24H Qty: 7 RF: 0 Continued enalapril maleate [Vasotec] 5 mg Tablet 20 mg PO BID RF: 0 rosuvastatin 20 mg Tablet 20 mg PO DAILY RF: 0 metformin 500 mg Tablet 500 mg PO BIDWM 30 Days Qty: 60 RF: 0 Eliquis 5 mg Tablet 5 mg PO BID 30 Days Qty: 60 RF: 1 amlodipine 10 mg tablet 10 mg PO DAILY RF: 0 Toujeo SoloStar U-300 Insulin 300 unit/mL (1.5 mL) insulin pen 30 unit SUBCUT DAILY RF: 0 Follow ups/Referrals Follow ups/Referrals: Toni KRISHNAMURTHY [Primary Care Provider] - 3 days Instructions Stand Alone Forms: Excuse From Work or School, Precautions for COVID19, Patient Portal, Social Distancing
== END 2020-12-17 11:15 | disposition home or self-care (01) ==
LOC: MED/SURG 16:00 → ER 16:00 → INTOOBSV 20:32 → OBSVTOIN 20:32 → MED/SURG 22:22
PROVIDERS: ADMIT Surgery; ATTEND Surgery
DX: L02.412 Cutaneous abscess of left axilla; I10 Essential (primary) hypertension; N49.2 Inflammatory disorders of scrotum; Z20.822 Contact with and (suspected) exposure to COVID-19; Z79.4 Long term (current) use of insulin; I26.99 Other pulmonary embolism without acute cor pulmonale; L73.2 Hidradenitis suppurativa; L02.416 Cutaneous abscess of left lower limb; E11.65 Type 2 diabetes mellitus with hyperglycemia; B95.1 Streptococcus, group B, as the cause of diseases classified elsewhere; E78.2 Mixed hyperlipidemia; Z79.01 Long term (current) use of anticoagulants; Z86.711 Personal history of pulmonary embolism